=== PATIENT | female | born 1960 | race Caucasian/White ===

== ENCOUNTER 2019-05-22 22:11 | Inpatient (IN) | payer MEDICAID ==
[~2019-05-22] VITALS: Ht 162.6 cm; Wt 73.9 kg
[~2019-05-22 22:11] MED LIST: ABILIFY15 MG ORAL; ABILIFY2 MG ORAL; ALBUTEROL SULF8.5 GM INH; AMLODIPINE BESYL5 MG ORAL; ATIVAN2 MG ORAL; ATROVENT HFA12.9 GM IH; AUGMENTIN 875-1 EAC1 ORAL; BACLOFEN10 MG ORAL; BACTRIM DS TAB1 EAC1 ORAL; CIPROFLOXACIN500 M2 ORAL; CYCLOBENZAPRINE10 MG ORAL; DICLOFENAC SODI75 MG PO; FLOVENT2 PUFF1 INH; FLOVENT2 PUFF2 INH; GABAPENTIN300 MG ORAL; IBUPROFEN600 MG ORAL; IBUPROFEN800 MG ORAL; METRONIDAZOLE500 MG ORAL; PERCOCET 7.5-31 EACH ORAL; PHENERGAN/CODE120 ML ORAL; PREDNISONE20 MG ORAL; SOMA350 MG PO; VICODIN 5-5001 EACH PO
[2019-05-22] MEDS ORDERED: SERTRALINE HCL100 MG PO (22:14)
[2019-05-22 22:15] VITALS: BP 185/108
--- NOTE | 2019-05-22 22:20 | NUR ---
ED Nurse Note: Patient was BIBA fro home due to abdominal pain, and nausea. Stated that has alcohol addiction, took 2 drinks today, and used meth. AAO x4, VSS at this time, skin is warm to touch. Patient's comlain that she was not able to eat 3-4 days, and feel so weak.
[2019-05-22] MEDS ORDERED: Pantoprazole Inj IV ONE (22:30)
[2019-05-22] MEDS ORDERED: Morphine Sulfate 4mg/ml Inj (IV USE ONLY) IVP ONE (22:30)
--- NOTE | 2019-05-22 22:32 | Emergency Room Report ---
History of Present Illness General Chief Complaint: Abdominal Pain Source: Patient, EMS Present Illness HPI This is a 58-year-old female with a history of methamphetamine and alcohol abuse. She said that she has a history of cirrhosis. She presents with chief complete abdominal pain. Said that she is unable to keep anything down for the last 4 days. Been vomiting. Able to drink and smoke methamphetamine. Also complaining of rectal bleeding today. Being is bright red blood. Abdominal pain is diffuse. Pain is 9 out of 10. No fever chills but no chest pain. No cough or congestion. Was recently admitted to [facility] for pneumonia. Allergies: Coded Allergies: No Known Allergies (Unverified , 12/15/12) Patient History Past Medical History: see triage record, old chart reviewed Past Surgical History: none Pertinent Family History: none Social History: Denies: smoking Now: No Immunizations: other Reviewed Nursing Documentation: PMH: Agreed; PSxH: Agreed Nursing Documentation-PMH Hx Hypertension: Yes Hx Pacemaker: No Hx COPD: No - CIRRHOSIS, ETOH ABUSE Hx Diabetes: No Hx Cancer: No Hx Dialysis: No Hx Cerebrovascular Accident: No Hx Seizures: No Review of Systems Constitutional: Reports: weakness Eye: Denies: eye pain, blurred vision ENT: Denies: ear pain, nose congestion, throat swelling Respiratory: Denies: cough, shortness of breath Cardiovascular: Denies: chest pain, palpitations Gastrointestinal: Reports: abdominal pain, diarrhea, nausea, vomiting Musculoskeletal: Denies: back pain, joint pain Skin: Denies: rash Neurological: Denies: headache, numbness Endocrine: Denies: increased thirst, increased urine Hematologic/Lymphatic: Denies: easy bruising All Other Systems: negative except mentioned in HPI Physical Exam Vital Signs Date Time Temp Pulse Resp B/P (MAP) Pulse Ox O2 Delivery O2 Flow Rate FiO2 05/22/19 22:07 98.4 97 18 185/108 (133) 99 Room Air Vitals with high blood pressure Sp02 EP Interpretation: reviewed, normal General Appearance: well appearing, no apparent distress, obese, Chronically Ill Head: normocephalic, atraumatic Eyes: bilateral eye PERRL, bilateral eye EOMI ENT: hearing grossly normal, normal pharynx Neck: full range of motion, supple, no meningismus Respiratory: chest non-tender, lungs clear, normal breath sounds Cardiovascular #1: regular rate, rhythm, no murmur Gastrointestinal: normal bowel sounds, no mass, no organomegaly, no bruit, non- distended, tenderness - Diffuse Rectal: hemorrhoids, other - No blood. No stool. Musculoskeletal: back normal, gait/station normal, normal range of motion Psychiatric: mood/affect normal Medical Decision Making Diagnostic Impression: Primary Impression: Abdominal pain Qualified Codes: R10.84 - Generalized abdominal pain Additional Impressions: Methamphetamine abuse Alcohol abuse Alcoholic cirrhosis of liver without ascites ER Course This patient presents with abdominal pain. She has a history of cirrhosis secondary to alcohol abuse. Labs show elevated enzymes and bilirubin. No evidence of severe ascites. No evidence of acute abdomen or infection. Patient felt better now. More awake and alert. Said that she started vomiting when she stopped drinking. No evidence of acute abdomen, infection or obstruction. I was discussing discharge and patient, she says she does not feel well. She show evidence of some withdrawal symptoms was tremulous. Ativan given here. Because of her generalized weakness, decreased p.o. intake and alcohol withdrawal, will admit for IV fluids and further work-up. I discussed the case with Dr. Pablo for admission to Dr. Noriega. Lab Results Impression Labs with elevated liver enzymes Chest X-Ray Diagnostic Results Chest X-Ray Diagnostic Results : Chest X-Ray Ordered: Yes # of Views/Limited/Complete: 1 View Indication: Shortness of Breath EP Interpretation: Yes Interpretation: no consolidation, no effusion, no pneumothorax, no acute cardiopulmonary disease Impression: No acute disease Electronically Signed by: Juancarlos Ward MD CT/MRI/US Diagnostic Results CT/MRI/US Diagnostic Results : Imaging Test Ordered: CT abdomen and pelvis Impression Read by radiologist. No acute inflammatory obstructive process. Cirrhotic liver. Gallstone. Trace ascites. Last Vital Signs Date Time Temp Pulse Resp B/P (MAP) Pulse Ox O2 Delivery O2 Flow Rate FiO2 05/22/19 22:07 98.4 97 18 185/108 (133) 99 Room Air Status: improved Disposition: ADMITTED INPATIENT Condition: Serious Scripts Chlordiazepoxide (Chlordiazepoxide HCl) 25 Mg Capsule 25 MG ORAL THREE TIMES A DAY, #15 CAP 0 Refills Prov: Juancarlos Ward MD 05/23/19 Referrals: NOT CHOSEN IPA/,REFERRING (PCP) Additional Instructions: Follow up with your doctor in 3 to 5 days. Abstain from alcohol. Return if symptoms worsen. Go to rehab. Juancarlos Ward MD May 22, 2019 22:32
--- NOTE | 2019-05-22 23:00 | NUR ---
ED Nurse Note: Patient's O2 went down to 84, placed patient on 2L via NC.
[2019-05-22 23:04] LABS: HEMATOCRIT 43.9 % (37.0-47.0); HEMOGLOBIN 15.2 G/DL (12.0-16.0); MEAN CORPUSCULAR VOLUME 104 FL (80-99); PLATELET COUNT 86 K/UL (150-450); RED BLOOD COUNT 4.21 M/UL (4.20-5.40); RED CELL DISTRIBUTION WIDTH 13.6 % (11.6-14.8)
[2019-05-22 23:09] LABS: APPEARANCE,URINE CLEAR; BILIRUBIN, URINE NEGATIVE (NEGATIVE); GLUCOSE, URINE (UA) NEGATIVE (NEGATIVE); KETONES,URINE NEGATIVE (NEGATIVE); LEUKOCYTE ESTERASE ,URINE NEGATIVE (NEGATIVE); NITRITE,URINE NEGATIVE (NEGATIVE); PH,URINE 8 (4.5-8.0); PROTEIN,URINE 1+ (NEGATIVE); UROBILINOGEN,URINE 4 MG/DL (0.0-1.0)
[2019-05-22 23:14] LABS: ANION GAP 10 mmol/L (5-15); BLOOD UREA NITROGEN 4 mg/dL (7-18); CALCIUM 8.4 MG/DL (8.5-10.1); CARBON DIOXIDE 25 MMOL/L (21-32); CHLORIDE 108 MMOL/L (98-107); CREATININE 0.6 MG/DL (0.55-1.30); POTASSIUM 2.9 MMOL/L (3.5-5.1); SODIUM 143 MMOL/L (136-145)
[2019-05-22 23:17] LABS: AMMONIA 44 umol/L (11-32)
[2019-05-22 23:18] LABS: INR 1.3 (0.9-1.1)
[2019-05-22 23:25] LABS: COLOR,URINE YELLOW
[2019-05-22 23:25] LABS: ALANINE AMINOTRANSFERASE 68 U/L (12-78); ALBUMIN 2.7 G/DL (3.4-5.0); ALBUMIN/GLOBULIN RATIO 0.5 (1.0-2.7); ALKALINE PHOSPHATASE 265 U/L (46-116); ASPARTATE AMINO TRANSFERASE 259 U/L (15-37); BILIRUBIN,TOTAL 1.1 MG/DL (0.2-1.0)
[2019-05-22 23:27] LABS: BILIRUBIN,DIRECT 0.7 MG/DL (0.0-0.3)
[2019-05-23 01:15] VITALS: BP 135/89
[2019-05-23] MEDS ORDERED: Morphine Sulfate 4mg/ml Inj (IV USE ONLY) IVP ONE (02:00)
--- NOTE | 2019-05-23 02:28 | Diagnostic Imaging Report ---
EXAM: CT Abdomen and Pelvis Without Intravenous Contrast CLINICAL HISTORY: Abdominal pain. TECHNIQUE: Axial computed tomography images of the abdomen and pelvis without intravenous contrast. CTDI is 31.9 mGy and DLP is 1955 mGy-cm. One or more of the following dose reduction techniques were used: automated exposure control, adjustment of the mA and or kV according to patient size, use of iterative reconstruction technique. COMPARISON: 04 11 14. FINDINGS: Lung bases: Unremarkable. No mass. No consolidation. ABDOMEN: Liver: The liver is moderately enlarged, measuring over 25 cm in diameter, with innumerable small rounded hypodense nodules and a nodular contour, most likely representing cirrhosis with regenerative nodules. Gallbladder and bile ducts: The gallbladder is moderately distended. Multiple small gallstones are seen within the gallbladder lumen. There is mild gallbladder wall calcification as well. No evidence of biliary obstruction. Pancreas: Unremarkable. No ductal dilation. Spleen: Unremarkable. No splenomegaly. Adrenals: Unremarkable. No mass. Kidneys and ureters: Unremarkable. No obstructing stones. No hydronephrosis. Stomach and bowel: No bowel obstruction. No definite small bowel wall thickening. There are scattered colonic diverticula without evidence of acute diverticulitis. PELVIS: Appendix: Surgically absent. Bladder: Unremarkable. No stones. Reproductive: Status post hysterectomy. ABDOMEN and PELVIS: Intraperitoneal space: No free intra-abdominal air. No loculated intra- abdominal fluid collection. Trace infiltrative changes within the paracolic gutters, likely representing trace ascites. Bones joints: No acute fracture. No dislocation. Soft tissues: Unremarkable. Vasculature: Unremarkable. No abdominal aortic aneurysm. Lymph nodes: Unremarkable. No enlarged lymph nodes. IMPRESSION: No definite acute inflammatory or obstructive process is identified within the abdomen or pelvis. Moderately enlarged, cirrhotic liver with innumerable hypodense nodules throughout the hepatic parenchyma likely representing regenerative nodules. Given patient risk factors, consider a nonemergent, dedicated liver MRI for better characterization and to exclude underlying lesion. Cholelithiasis. No evidence of biliary obstruction. Trace ascites.
[2019-05-23] MEDS ORDERED: LIBRIUM25 MG ORAL (02:53)
[2019-05-23] MEDS ORDERED: ZOFRAN4 MG ORAL (02:53)
[2019-05-23] MEDS ORDERED: LORazepam Inj 2mg/ml 1ml IV ONE (03:30)
--- NOTE | 2019-05-23 03:36 | Diagnostic Imaging Report ---
EXAM: XR Chest, 1 View CLINICAL HISTORY: SOB TECHNIQUE: Frontal view of the chest. COMPARISON: 05 06 13 FINDINGS: Lungs: No evidence of airspace consolidation. Mild interstitial edema may be present in both lower lobes. Pleural space: Unremarkable. No pneumothorax. Heart: Heart size top normal. Mediastinum: Unremarkable. No mediastinal widening or shift. Bones joints: Unremarkable. No acute osseous abnormality. IMPRESSION: Mild interstitial edema. Please correlate symptoms of hypervolemia or congestive heart failure. No airspace consolidation. No pneumothorax.
--- NOTE | 2019-05-23 03:37 | NUR ---
ED Nurse Note: PT WAS PROVIDED W/ EXTRA WARM BLANKET FOR COMFORT, PT SINUS TACH ON HIM TECH, WILL CONT MONITOR.
--- NOTE | 2019-05-23 05:37 | NUR ---
NURSE NOTES: Received report from LY Lozano (ER).
--- NOTE | 2019-05-23 05:40 | NUR ---
ED Nurse Note: Patient was admited t [facility] due to generalized weakness, alcohol abuse. Patient was transfered to the unit via gurney, with all belongings. AAO x4. VSS at this time, skin is warm to touch
[2019-05-23] MEDS ORDERED: Albuterol/Ipratropium 3ml neb HHN PRN (05:45)
--- NOTE | 2019-05-23 05:50 | NUR ---
NURSE NOTES: Pt arrived on floor, alert, fatigued, able to make needs known, ambulated to bed, Vitals 149,74 99.1 96% 20rr, 117HR, no c/o pain or signs of distress, belongings list signed, pt wearing jewelry, will get admitting orders.
[2019-05-23 06:52] VITALS: BP 143/78
--- NOTE | 2019-05-23 07:40 | NUR ---
NURSE NOTES: Received patient in bed, stated feeling weak, verbally responsive. was eating breakfast however fatigue. Patient is on O2 2L via NC. IV heplock patent and intact. V/S taken 98.1, 113, 21, 156/72, 96% on O2 2L via NC, 8/10 pain. No acte resp distress noted. siderails are up x3. instructed to call for assistance to ambulate. bed alarm is activated and locked. call light is within reach. will cont to monitor.
--- NOTE | 2019-05-23 07:41 | NUR ---
HAND-OFF: Report given to LY Mayfield.
[2019-05-23 08:00] VITALS: BP 133/71
[2019-05-23] MEDS: Docusate 100mg cap ORAL SCH ×2 (08:08→20:41)
[2019-05-23] MEDS: Sertraline 100mg tab ORAL SCH (08:08)
[2019-05-23] MEDS ORDERED: chlordiazePOXIDE 25mg Cap ORAL SCH (09:00)
[2019-05-23] MEDS: ARIPiprazole 2mg tab ORAL SCH (09:18)
[2019-05-23 10:29] LABS: ANION GAP 9 mmol/L (5-15); BLOOD UREA NITROGEN 4 mg/dL (7-18); CALCIUM 7.5 MG/DL (8.5-10.1); CARBON DIOXIDE 24 MMOL/L (21-32); CHLORIDE 108 MMOL/L (98-107); CREATININE 0.6 MG/DL (0.55-1.30); POTASSIUM 3.6 MMOL/L (3.5-5.1); SODIUM 141 MMOL/L (136-145)
--- NOTE | 2019-05-23 11:35 | NUR ---
NURSE NOTES: left voicemessage to Dr Noriega. re: patient appeared anxious. awaits for a call back. will cont the plan of care. Addendum: 05/23/19 at 1148 by SERENA CHAVES LVN NURSE NOTES: Dr Garcia called back and will place order. made aware of the labs result today. will cont to monitor.
[2019-05-23 11:40] VITALS: BP 154/90
[2019-05-23] MEDS: LORazepam Inj 2mg/ml 1ml IV PRN ×3 (12:17→20:49)
[2019-05-23] MEDS: chlordiazePOXIDE 25mg Cap ORAL SCH ×2 (12:18→17:24)
[2019-05-23] MEDS ORDERED: Gadavist 7.5mMol/7.5ml vial IV PRN (15:00)
--- NOTE | 2019-05-23 15:08 | History and Physical ---
History of Present Illness General Date patient seen: May 23, 2019 Reason for Hospitalization: Abdominal Pain Present Illness HPI Kandy Negrete is a 58 yo woman with PMH of alcoholic cirrhosis, polysubstance abuse (marijuana, methamphetamine, EtOH), COPD, and HTN who presented with several days of nausea, vomiting, poor PO intake, and abdominal pain. Patient states she recently "got over the flu" about a week ago and has not felt right since. Has had decreased PO intake and only been able to tolerate fluids, not much food. States has been having on/off nausea and occasional vomiting as well. Does admit to continued alcohol use despite knowing having liver disease. States her last drink was around 1PM yesterday with vodka. Denies any history of seizures but does admit that usually gets tremulous if she does not have a drink daily. States she is interested in detox and has considered quitting but it has been difficult as she lives with 2 other roommates who both drink and use other drugs. States she is "in a toxic environment." States she has not had a good bowel movement in a week, last bowel movement was yesterday but only a smear; states is passing gas. Denies any fever, chills, chest pain, SOB, visual/auditory/or sensory hallucinations. This morning, states abd pain has resolved and no further vomiting since admission to hospital. Per RN, noted with tremors, PRN ativan given. Allergies: Coded Allergies: No Known Allergies (Unverified , 12/15/12) Medication History Scheduled Amlodipine Besylate* (Amlodipine Besylate*), 5 MG ORAL DAILY, (Reported) Aripiprazole* (Abilify*), 2 MG ORAL DAILY, (Reported) Chlordiazepoxide (Chlordiazepoxide HCl), 25 MG ORAL THREE TIMES A DAY Sertraline Hcl* (Zoloft*), 100 MG PO DAILY, (Reported) Discontinued Medications Albuterol Sulfate* (Albuterol Sulfate Mdi*), 2 PUFF INH Q3H, (Reported) Discontinued Reason: Therapy completed Carisoprodol* (Soma*), Unknown Dose PO, (Reported) Discontinued Reason: Therapy completed Cyclobenzaprine Hcl* (Flexeril*), 10 MG ORAL BID, (Reported) Discontinued Reason: Therapy completed Diclofenac Sod* (Voltaren*), 75 MG PO BID, (Reported) Discontinued Reason: Therapy completed Fluticasone Propionate (Flovent Hfa), 2 PUFFS INH BID, (Reported) Discontinued Reason: Therapy completed Gabapentin* (Gabapentin*), 300 MG ORAL BID, (Reported) Discontinued Reason: Therapy completed Ibuprofen* (Motrin*), 600 MG ORAL Q8H PRN for For Pain Discontinued Reason: Therapy completed Lorazepam* (Ativan*), 2 MG ORAL BID, (Reported) Discontinued Reason: Therapy completed Ondansetron (Zofran), 4 MG ORAL Q6H PRN for Nausea & Vomiting Discontinued Reason: Therapy completed Oxycodone Hcl/Acetaminophen 7.5-325 Mg (Percocet 7.5-325 Mg Tablet), 1 TAB ORAL FOUR TIMES A DAY Discontinued Reason: Therapy completed Trimethoprim/Sulfamethoxazole 160/800* (Bactrim Ds Tablet*), 1 TAB ORAL Q12H Discontinued Reason: Therapy completed Patient History History Provided By: Patient, Medical Record Healthcare decision maker Resuscitation status Full Code Advanced Directive on File Family History Family History: Patient reports no known family medical history. Social History Social History: (1) Alcohol use (2) Smoker (3) Substance abuse Review of Systems Constitutional: Reports: weakness Eye: Reports: no symptoms ENT: Reports: no symptoms Respiratory: Reports: no symptoms Cardiovascular: Reports: no symptoms Gastrointestinal: Reports: abdominal pain, nausea, vomiting Genitourinary: Reports: no symptoms Musculoskeletal: Reports: no symptoms Skin: Reports: no symptoms Psychiatric: Reports: other - tremors, polysubstance abuse, anxiety Neurological: Reports: tremors - EtOH withdraw Endocrine: Reports: no symptoms Hematologic/Lymphatic: Reports: no symptoms Physical Exam General Appearance: no apparent distress, alert, lethargic Lines, tubes and drains: peripheral HEENT: normocephalic, atraumatic, anicteric Neck: non-tender, supple Respiratory/Chest: lungs clear, normal breath sounds, no respiratory distress Cardiovascular/Chest: normal peripheral pulses, normal rate, regular rhythm Abdomen: normal bowel sounds, non tender, soft, distended Extremities: non-tender, trace edema Neurologic: alert - AAOx2 to name and place but not date or year Last 24 Hour Vital Signs Date Time Temp Pulse Resp B/P (MAP) Pulse Ox O2 Delivery O2 Flow Rate FiO2 05/23/19 11:40 98.7 116 20 154/90 (111) 93 05/23/19 08:17 Nasal Cannula 2.0 05/23/19 08:09 113 156/72 05/23/19 08:00 98.5 113 20 133/71 (91) 93 05/23/19 07:29 95 Nasal Cannula 2.0 05/23/19 07:29 113 20 95 Nasal Cannula 2.0 05/23/19 06:52 98.4 82 18 143/78 97 Nasal Cannula 2.0 05/23/19 06:52 98.4 82 18 143/78 97 Nasal Cannula 2.0 05/23/19 06:04 Nasal Cannula 2.0 05/23/19 02:32 98.4 05/23/19 01:30 183/93 05/23/19 01:15 98.4 82 18 135/89 97 Nasal Cannula 2.0 05/22/19 23:31 98.4 05/22/19 22:15 98.4 18 185/108 99 Room Air 05/22/19 22:15 97 18 Room Air 05/22/19 22:07 98.4 97 18 185/108 (133) 99 Room Air Laboratory Tests Test 05/22/19 22:15 05/22/19 22:59 05/23/19 09:45 White Blood Count 7.0 K/UL (4.8-10.8) Red Blood Count 4.21 M/UL (4.20-5.40) Hemoglobin 15.2 G/DL (12.0-16.0) Hematocrit 43.9 % (37.0-47.0) Mean Corpuscular Volume 104 FL (80-99) H Mean Corpuscular Hemoglobin 36.0 PG (27.0-31.0) H Mean Corpuscular Hemoglobin Concent 34.5 G/DL (32.0-36.0) Red Cell Distribution Width 13.6 % (11.6-14.8) Platelet Count 86 K/UL (150-450) L Mean Platelet Volume 9.2 FL (6.5-10.1) Neutrophils (%) (Auto) % (45.0-75.0) Lymphocytes (%) (Auto) % (20.0-45.0) Monocytes (%) (Auto) % (1.0-10.0) Eosinophils (%) (Auto) % (0.0-3.0) Basophils (%) (Auto) % (0.0-2.0) Differential Total Cells Counted 100 Neutrophils % (Manual) 71 % (45-75) Lymphocytes % (Manual) 18 % (20-45) L Monocytes % (Manual) 8 % (1-10) Eosinophils % (Manual) 1 % (0-3) Basophils % (Manual) 2 % (0-2) Band Neutrophils 0 % (0-8) Platelet Estimate Decreased L Platelet Morphology Normal Prothrombin Time 13.3 SEC (9.30-11.50) H Prothromb Time International Ratio 1.3 (0.9-1.1) H Activated Partial Thromboplast Time 29 SEC (23-33) Sodium Level 143 MMOL/L (136-145) 141 MMOL/L (136-145) Potassium Level 2.9 MMOL/L (3.5-5.1) L 3.6 MMOL/L (3.5-5.1) Chloride Level 108 MMOL/L (98-107) H 108 MMOL/L (98-107) H Carbon Dioxide Level 25 MMOL/L (21-32) 24 MMOL/L (21-32) Anion Gap 10 mmol/L (5-15) 9 mmol/L (5-15) Blood Urea Nitrogen 4 mg/dL (7-18) L 4 mg/dL (7-18) L Creatinine 0.6 MG/DL (0.55-1.30) 0.6 MG/DL (0.55-1.30) Estimat Glomerular Filtration Rate > 60 mL/min (>60) > 60 mL/min (>60) Glucose Level 107 MG/DL (74-106) H 102 MG/DL (74-106) Calcium Level 8.4 MG/DL (8.5-10.1) L 7.5 MG/DL (8.5-10.1) L Total Bilirubin 1.1 MG/DL (0.2-1.0) H Direct Bilirubin 0.7 MG/DL (0.0-0.3) H Aspartate Amino Transf (AST/SGOT) 259 U/L (15-37) H Alanine Aminotransferase (ALT/SGPT) 68 U/L (12-78) Alkaline Phosphatase 265 U/L (46-116) H Ammonia 44 umol/L (11-32) H Total Protein 8.5 G/DL (6.4-8.2) H Albumin 2.7 G/DL (3.4-5.0) L Globulin 5.8 g/dL Albumin/Globulin Ratio 0.5 (1.0-2.7) L Lipase 326 U/L (73-393) Urine Color Yellow Urine Appearance Clear Urine pH 8 (4.5-8.0) Urine Specific [place] 1.010 (1.005-1.035) Urine Protein 1+ (NEGATIVE) H Urine Glucose (UA) Negative (NEGATIVE) Urine Ketones Negative (NEGATIVE) Urine Blood 1+ (NEGATIVE) H Urine Nitrite Negative (NEGATIVE) Urine Bilirubin Negative (NEGATIVE) Urine Urobilinogen 4 MG/DL (0.0-1.0) H Urine Leukocyte Esterase Negative (NEGATIVE) Urine RBC 2-4 /HPF (0 - 2) H Urine WBC 0 /HPF (0 - 2) Urine Squamous Epithelial Cells None /LPF (NONE/OCC) Urine Bacteria None /HPF (NONE) Height (Feet): 5 Height (Inches): 4.00 Weight (Pounds): 165 Medications Current Medications Medications (Trade) Dose Ordered Sig/Sarthak Route PRN Reason Start Time Stop Time Status Last Admin Dose Admin Albuterol/ Ipratropium (Albuterol/ Ipratropium) 3 ml Q4H PRN HHN Shortness of Breath 05/23/19 05:45 05/28/19 05:44 Amlodipine Besylate (Norvasc) 5 mg DAILY ORAL 05/23/19 09:00 06/22/19 08:59 05/23/19 08:09 Aripiprazole (Abilify) 2 mg DAILY ORAL 05/23/19 09:00 06/22/19 08:59 05/23/19 09:18 Chlordiazepoxide (Librium) 25 mg Q6H ORAL 05/25/19 12:00 05/27/19 12:00 Chlordiazepoxide (Librium) 50 mg EVERY 6 HOURS ORAL 05/23/19 12:00 05/25/19 12:00 05/23/19 12:18 Dextrose (Dextrose 50%) 25 ml Q30M PRN IV Hypoglycemia 05/23/19 05:45 06/22/19 05:44 Dextrose (Dextrose 50%) 50 ml Q30M PRN IV Hypoglycemia 05/23/19 05:45 06/22/19 05:44 Diphenhydramine HCl (Benadryl) 25 mg Q6H PRN ORAL Itching/Pruritis 05/23/19 05:45 06/22/19 05:44 Docusate Sodium (Colace) 100 mg EVERY 12 HOURS ORAL 05/23/19 09:00 06/22/19 08:59 05/23/19 08:08 Lorazepam (Ativan 2mg/ml 1ml) 1 mg Q2H PRN IV withdraw 05/23/19 12:00 05/30/19 11:59 05/23/19 12:17 Ondansetron HCl (Zofran) 4 mg Q6H PRN IVP Nausea & Vomiting 05/23/19 05:45 06/22/19 05:44 Sertraline HCl (Zoloft) 100 mg DAILY ORAL 05/23/19 09:00 06/22/19 08:59 05/23/19 08:08 Assessment/Plan Status: unchanged Assessment/Plan: Kandy Negrete is a 58 yo woman with PMH of alcoholic cirrhosis, polysubstance abuse (EtOH, methamphetamine, marijuana), COPD, and HTN who presented with several days of poor PO intake, N/V, abdominal discomfort and generalized weakness, found with labs notable for platelet 86, no leukocytosis, hypokalemia 2.9, tranaminitis with AST>ALT, and overall unremarkable CT A/P for acute process. Patient also noted with tachycardia, borderline hypertension, and tremors today concerning for alcohol withdraw. GI: N/V - resolved, abd pain - resolved, alcoholic cirrhosis, constipation - Symptoms may be 2/2 continued EtOH use, now resolved after abstinence for one day +/- mild viral gastroenteritis - CT A/P without acute inflammatory or obstructive process, trace ascites, moderately enlarged cirrhotic liver with immunerable hypodense nodules throughout likely regenerative nodules, cholelithiasis without obstruction. Consider MRI liver for better characterization. - Patient states does not have a GI doctor outpatient. Given likely to be lost to follow up with hx of poor follow ups and polysubstance abuse, will order MRI abdomen here to further characterize CT findings to rule out malignancy - AST 259 ALT 68 on admission, consistent with EtOH abuse - MELD Na 10, <2% estimated 90 day mortality - Ammonia 44 - Start lactulose 20mg PO TID for constipation and mild hyperammonemia - Zofran 4mg q6hrs PRN nausea/vomiting Psych: Polysubstance abuse, acute EtOH withdraw, mood disorder - Alcohol withdraw protocol - Banana bag x1, thiamine PO daily, folate PO daily, multivitamin PO daily - Start librium taper, 50mg PO q6hr x24hrs then 25mg PO q6hrs - Ativan 1gm IV q2hrs PRN withdraw symptoms - Monitor for worsening signs/symptoms of withdraw - Social work consult, patient interested in detox programs - Continue home abilify and zoloft Neurology: Metabolic encephalopathy - In setting of acute EtOH withdraw and cirrhosis - Treatment as per above CVS: Sinus tachycardia, hx HTN - tachycardia 2/2 EtOH withdraw - Continue home amlodipine 5mg PO daily Heme: Thrombocytopenia - Platelet 86 on admission, likely 2/2 chronic EtOH use/cirrhosis - Continue to monitor - SCDs for DVT ppx FEN Low sodium diet Full Code I spent 70 minutes on this encounter, with >50% dedicated to counseling and/or coordination of care. Kelly Garcia M.D. May 23, 2019 15:08
[2019-05-23 16:00] VITALS: BP 153/92
[2019-05-23] MEDS ORDERED: Magnesium Sulfate 2,000 MG, Folic Acid 1 MG, Multivitamin - 12 Injection 10 ML in Sodiu... IV ONE (16:30)
[2019-05-23] MEDS ORDERED: Thiamine 100mg in D5W 55ml IVPB ONE (16:30)
[2019-05-23] MEDS: Lactulose 20gm/30ml UDC ORAL SCH (17:24)
--- NOTE | 2019-05-23 19:01 | NUR ---
HAND-OFF: Report given to BEAR.
--- NOTE | 2019-05-23 19:22 | NUR ---
NURSE NOTES: Pt received in bed, alert and oriented, talking and answering questions, able to make needs known, call light within reach, no c/o pain or signs of distress at the moment, banana bag running, IV intact and patent, head of bed elevated, will continue to monitor.
[2019-05-23 20:00] VITALS: BP 153/74
[2019-05-24] VITALS: BP 148/79
[2019-05-24] MEDS: chlordiazePOXIDE 25mg Cap ORAL SCH ×4 (00:24→17:22)
[2019-05-24] MEDS: LORazepam Inj 2mg/ml 1ml IV PRN ×5 (01:39→22:02)
[2019-05-24 04:00] VITALS: BP 156/91
--- NOTE | 2019-05-24 07:05 | NUR ---
HAND-OFF: Report given to LY Tafoya.
[2019-05-24 07:06] LABS: HEMATOCRIT 38.8 % (37.0-47.0); HEMOGLOBIN 12.9 G/DL (12.0-16.0); MEAN CORPUSCULAR VOLUME 107 FL (80-99); PLATELET COUNT 53 K/UL (150-450); RED BLOOD COUNT 3.61 M/UL (4.20-5.40); RED CELL DISTRIBUTION WIDTH 13.9 % (11.6-14.8); WHITE BLOOD COUNT 5.2 K/UL (4.8-10.8)
[2019-05-24 07:16] LABS: ANION GAP 7 mmol/L (5-15); BLOOD UREA NITROGEN 5 mg/dL (7-18); CALCIUM 7.2 MG/DL (8.5-10.1); CARBON DIOXIDE 25 MMOL/L (21-32); CHLORIDE 105 MMOL/L (98-107); CREATININE 0.5 MG/DL (0.55-1.30); POTASSIUM 3.2 MMOL/L (3.5-5.1); SODIUM 137 MMOL/L (136-145)
[2019-05-24 07:40] LABS: ALANINE AMINOTRANSFERASE 64 U/L (12-78); ALBUMIN 2.3 G/DL (3.4-5.0); ALKALINE PHOSPHATASE 224 U/L (46-116); ASPARTATE AMINO TRANSFERASE 229 U/L (15-37); BILIRUBIN,TOTAL 1.9 MG/DL (0.2-1.0)
[2019-05-24 08:00] VITALS: BP 158/81
--- NOTE | 2019-05-24 08:01 | NUR ---
NURSE NOTES: Received report from LY De Leon. Pt in bed, fatigued, seizure pads applied to side rails, pt is calm, no apparent distress noted, bed in lowest position, call light within reach.
[2019-05-24] MEDS: Docusate 100mg cap ORAL SCH ×2 (08:36→21:00)
[2019-05-24] MEDS: Lactulose 20gm/30ml UDC ORAL SCH ×3 (08:36→17:22)
[2019-05-24] MEDS: Thiamine 100mg tab ORAL SCH (08:36)
[2019-05-24] MEDS: ARIPiprazole 2mg tab ORAL SCH (08:37)
[2019-05-24] MEDS: Sertraline 100mg tab ORAL SCH (08:37)
--- NOTE | 2019-05-24 09:51 | General Progress Note ---
Assessment/Plan Status: stable, unchanged Assessment/Plan: Kandy Negrete is a 58 yo woman with PMH of alcoholic cirrhosis, polysubstance abuse (EtOH, methamphetamine, marijuana), COPD, and HTN who presented with several days of poor PO intake, N/V, abdominal discomfort and generalized weakness, found with labs notable for platelet 86, no leukocytosis, hypokalemia 2.9, tranaminitis with AST>ALT, and overall unremarkable CT A/P for acute process. Patient also noted with tachycardia, borderline hypertension, and tremors today concerning for alcohol withdraw. GI: N/V - resolved, abd pain - resolved, alcoholic cirrhosis, constipation - Symptoms may be 2/2 continued EtOH use, now resolved after abstinence for one day +/- mild viral gastroenteritis - CT A/P without acute inflammatory or obstructive process, trace ascites, moderately enlarged cirrhotic liver with hypodense nodules throughout likely regenerative nodules, cholelithiasis without obstruction. Consider MRI liver for better characterization. MRI attepmted, patient could not tolerate due to claustrophobia and refusal of IC contrast. - Patient states does not have a GI doctor outpatient. Obtain GI consult today. - AST 259 ALT 68 on admission, consistent with EtOH abuse - MELD Na 10, <2% estimated 90 day mortality - Ammonia 44 - lactulose 20mg PO TID for constipation and mild hyperammonemia, too many bowel movement. Decrease to 10mg TID - Zofran 4mg q6hrs PRN nausea/vomiting -Tylenol for pain control Psych: Polysubstance abuse, acute EtOH withdraw, mood disorder - Alcohol withdraw protocol - Banana bag x1, thiamine PO daily, folate PO daily, multivitamin PO daily - Start librium taper, 50mg PO q6hr x24hrs then 25mg PO q6hrs - Ativan 1gm IV q2hrs PRN withdraw symptoms - Monitor for worsening signs/symptoms of withdraw - Social work consult, patient interested in detox programs - Continue home Bhumilialvaro and Guillerminat Neurology: Metabolic encephalopathy - In setting of acute EtOH withdraw and cirrhosis - Treatment as per above CVS: Sinus tachycardia, hx HTN - tachycardia 2/2 EtOH withdraw - Continue home amlodipine 5mg PO daily Heme: Thrombocytopenia - Platelet 86 on admission, likely 2/2 chronic EtOH use/cirrhosis - Continue to monitor - SCDs for DVT ppx FEN Low sodium diet Full Code I spent 40 minutes on this encounter, with >50% dedicated to counseling and/or coordination of care. case d/w GI MANDREL MAKER Jose and rn Subjective Date patient seen: May 24, 2019 ROS Limited/Unobtainable: No Constitutional: Denies: no symptoms, chills, diaphoresis, fever, malaise, weakness, other HEENT: Denies: no symptoms, eye pain, blurred vision, tearing, double vision, ear pain, ear discharge, nose pain, nose congestion, throat pain, throat swelling, mouth pain, mouth swelling, other Cardiovascular: Denies: no symptoms, chest pain, edema, irregular heart rate, lightheadedness, palpitations, syncope, other Respiratory: Denies: no symptoms, cough, orthopnea, shortness of breath, SOB with excertion, SOB at rest, sputum, stridor, wheezing, other Gastrointestinal/Abdominal: Reports: abdominal pain, diarrhea; Denies: no symptoms, abdomen distended, black stools, tarry stools, blood in stool, constipated, difficulty swallowing, nausea, poor appetite, poor fluid intake, rectal bleeding, vomiting, other Genitourinary: Denies: no symptoms, burning, discharge, frequency, flank pain, hematuria, incontinence, pain, urgency, other Neurologic/Psychiatric: Denies: no symptoms, anxiety, depressed, emotional problems, headache, numbness, paresthesia, pre-existing deficit, seizure, tingling, tremors, weakness, other Endocrine: Denies: no symptoms, excessive sweating, flushing, intolerance to cold, intolerance to heat, increased hunger, increased thirst, increased urine, unexplained weight gain, unexplained weight loss, other Allergies: Coded Allergies: No Known Allergies (Unverified , 12/15/12) Subjective has too many bowel movements. mild abdominal pain Objective Last 24 Hour Vital Signs Date Time Temp Pulse Resp B/P (MAP) Pulse Ox O2 Delivery O2 Flow Rate FiO2 05/24/19 09:00 Nasal Cannula 2.0 05/24/19 08:39 113 156/91 05/24/19 08:00 98.5 109 24 158/81 (106) 95 05/24/19 04:00 98.6 113 20 156/91 (112) 95 05/24/19 00:00 99.0 111 19 148/79 (102) 96 05/23/19 21:03 96 Nasal Cannula 2.0 28 05/23/19 21:00 Nasal Cannula 2.0 05/23/19 20:00 99.3 108 19 153/74 (100) 96 05/23/19 16:00 99.2 125 20 153/92 (112) 94 05/23/19 16:00 112 05/23/19 11:40 98.7 116 20 154/90 (111) 93 Intake and Output 05/23/19 05/24/19 19:00 07:00 Intake Total 1112 ml 1000 ml Balance 1112 ml 1000 ml Intake Oral 500 ml IV Total 1112 ml 500 ml # Voids 2 # Bowel Movements 1 Laboratory Tests 05/24/19 06:00: White Blood Count 5.2, Red Blood Count 3.61L, Hemoglobin 12.9, Hematocrit 38.8, Mean Corpuscular Volume 107H, Mean Corpuscular Hemoglobin 35.7H, Mean Corpuscular Hemoglobin Concent 33.2, Red Cell Distribution Width 13.9, Platelet Count 53L, Mean Platelet Volume 9.2, Neutrophils (%) (Auto) , Lymphocytes (%) ( Auto) , Monocytes (%) (Auto) , Eosinophils (%) (Auto) , Basophils (%) (Auto) , Differential Total Cells Counted 100, Neutrophils % (Manual) 59, Lymphocytes % ( Manual) 29, Monocytes % (Manual) 12H, Eosinophils % (Manual) 0, Basophils % ( Manual) 0, Band Neutrophils 0, Platelet Estimate DecreasedL, Platelet Morphology Normal, Anisocytosis 1+, Sodium Level 137, Potassium Level 3.2L, Chloride Level 105, Carbon Dioxide Level 25, Anion Gap 7, Blood Urea Nitrogen 5L , Creatinine 0.5L, Estimat Glomerular Filtration Rate > 60, Glucose Level 84, Calcium Level 7.2L, Total Bilirubin 1.9H, Direct Bilirubin 1.0H, Aspartate Amino Transf (AST/SGOT) 229H, Alanine Aminotransferase (ALT/SGPT) 64, Alkaline Phosphatase 224H, Total Protein 7.5, Albumin 2.3L Height (Feet): 5 Height (Inches): 4.00 Weight (Pounds): 165 Objective General Appearance: no apparent distress, alert, lethargic Lines, tubes and drains: peripheral HEENT: normocephalic, atraumatic, anicteric Neck: non-tender, supple Respiratory/Chest: lungs clear, normal breath sounds, no respiratory distress Cardiovascular/Chest: normal peripheral pulses, normal rate, regular rhythm Abdomen: normal bowel sounds, non tender, soft, distended Extremities: non-tender, trace edema Neurologic: alert - AAOx2 to name and place but not date or year Alen Clark M.D. May 24, 2019 09:51
--- NOTE | 2019-05-24 11:22 | NUR ---
MRI ABDOMEN W/O COMPLETED. PT WAS SEDATED DUE TO ALCOHOL WITHDRAWAL. THE SEDATION ALSO HELPED THE PT EVEN ATTEMPT THE MRI BECAUSE SHE STATES SHE IS CLAUSTROPHOBIC. HOWEVER, SHE CAN NOT HOLD HER BREATH, WHICH AFFECTS THE QUALITY OF THE IMAGES BECAUSE OF TOO MUCH MOTION. ALSO, SHE STILL WAS TOO CLAUSTROPHOBIC TO CONTINUE ON AND REFUSED TO DO THE POST CONTRAST IMAGES. LY RAZO HAS BEEN INFORMED. TJGray 11:27
--- NOTE | 2019-05-24 11:39 | GI Initial Consult Note ---
History of Present Illness General Date patient seen: May 24, 2019 Time patient seen: 11:32 Reason for Hospitalization: Abdominal Pain Referring physician: NOMI MEDEL Reason for Consultation: CIRRHOSIS Present Illness HPI Kandy Negrete is a 58 yo woman with PMH of alcoholic cirrhosis, polysubstance abuse (marijuana, methamphetamine, EtOH), COPD, and HTN who presented with several days of nausea, vomiting, poor PO intake, and abdominal pain. Patient states she recently "got over the flu" about a week ago and has not felt right since. Has had decreased PO intake and only been able to tolerate fluids, not much food. States has been having on/off nausea and occasional vomiting as well. Does admit to continued alcohol use despite knowing having liver disease. States her last drink was around 1PM yesterday with vodka. Denies any history of seizures but does admit that usually gets tremulous if she does not have a drink daily. States she is interested in detox and has considered quitting but it has been difficult as she lives with 2 other roommates who both drink and use other drugs. States she is "in a toxic environment." States she has not had a good bowel movement in a week, last bowel movement was yesterday but only a smear; states is passing gas. Denies any fever, chills, chest pain, SOB, visual/auditory/or sensory hallucinations. This morning, states abd pain has resolved and no further vomiting since admission to hospital. Per RN, noted with tremors, PRN ativan given. GI consulted for reported cirrhosis. Patient seen, awake alert oriented x4. Initial HPI as noted above. Patient presents today with elevated AST to 229, ALT within normal limits, total bilirubin 1.9, alkaline phosphatase 224. Abdominal pelvis CT was taken and noted that there was no definite acute inflammatory obstructive process. Was noted that the patient had a cirrhotic liver with multiple hepatic parenchyma. Patient is currently pending an MRI. No history of endoscopic colonoscopy. Home Meds Active Scripts Chlordiazepoxide (Chlordiazepoxide HCl) 25 Mg Capsule, 25 MG ORAL THREE TIMES A DAY, #15 CAP 0 Refills Prov:Juancarlos Ward MD 05/23/19 Reported Medications Sertraline Hcl* (ZOLOFT*) 100 Mg Tablet, 100 MG PO DAILY, TAB 05/22/19 Aripiprazole* (ABILIFY*) 2 Mg Tablet, 2 MG ORAL DAILY, TAB 09/12/14 Amlodipine Besylate* (AMLODIPINE BESYLATE*) 5 Mg Tablet, 5 MG ORAL DAILY 12/15/12 Discontinued Reported Medications Carisoprodol* (SOMA*) 350 Mg Tablet, PO, TAB 04/30/14 Albuterol Sulfate* (ALBUTEROL SULFATE MDI*) 8.5 Gm Hfa.aer.ad, 2 PUFF INH Q3H, # 1 INH 02/04/13 Fluticasone Propionate (Flovent Hfa) 2 Puffs Aero, 2 PUFFS INH BID, #1 EA 02/04/13 Cyclobenzaprine Hcl* (FLEXERIL*) 10 Mg Tablet, 10 MG ORAL BID, TAB 02/04/13 Diclofenac Sod* (VOLTAREN*) 75 Mg Tablet.dr, 75 MG PO BID 02/04/13 Gabapentin* (GABAPENTIN*) 300 Mg Capsule, 300 MG ORAL BID, CAP 02/04/13 Lorazepam* (ATIVAN*) 2 Mg Tablet, 2 MG ORAL BID 12/15/12 Discontinued Scripts Ondansetron (Zofran) 4 Mg Tablet, 4 MG ORAL Q6H PRN for Nausea & Vomiting, #10 TAB 0 Refills Prov:Juancarlos Ward MD 05/23/19 Trimethoprim/Sulfamethoxazole 160/800* (BACTRIM DS TABLET*) 1 Each Tablet, 1 TAB ORAL Q12H, #14 TAB 0 Refills Prov:Lisa Pisano 04/05/15 Ibuprofen* (MOTRIN*) 600 Mg Tablet, 600 MG ORAL Q8H PRN for For Pain, #30 TAB Prov:Srirma Ferrera MD 09/12/14 Oxycodone Hcl/Acetaminophen 7.5-325 Mg (PERCOCET 7.5-325 MG TABLET) 1 Each Tablet, 1 TAB ORAL FOUR TIMES A DAY, #10 CAP Prov:MARTHA KU 11/10/13 Med list reviewed/reconciled: Yes Allergies: Coded Allergies: No Known Allergies (Unverified , 12/15/12) Patient History History Provided By: Patient, Medical Record [facility] Narrative History Provided By: Patient, Medical Record Healthcare decision maker Resuscitation status Full Code Advanced Directive on File Family History Family History: Patient reports no known family medical history. Social History Social History: (1) Alcohol use (2) Smoker (3) Substance abuse Review of Systems All Other Systems: negative except mentioned in HPI Physical Exam Vital Signs Date Time Temp Pulse Resp B/P (MAP) Pulse Ox O2 Delivery O2 Flow Rate FiO2 05/22/19 22:07 98.4 97 18 185/108 (133) 99 Room Air 05/23/19 01:15 2.0 05/23/19 07:29 28 Sp02 EP Interpretation: reviewed, normal Labs Laboratory Tests Test 05/24/19 06:00 White Blood Count 5.2 K/UL (4.8-10.8) Red Blood Count 3.61 M/UL (4.20-5.40) L Hemoglobin 12.9 G/DL (12.0-16.0) Hematocrit 38.8 % (37.0-47.0) Mean Corpuscular Volume 107 FL (80-99) H Mean Corpuscular Hemoglobin 35.7 PG (27.0-31.0) H Mean Corpuscular Hemoglobin Concent 33.2 G/DL (32.0-36.0) Red Cell Distribution Width 13.9 % (11.6-14.8) Platelet Count 53 K/UL (150-450) L Mean Platelet Volume 9.2 FL (6.5-10.1) Neutrophils (%) (Auto) % (45.0-75.0) Lymphocytes (%) (Auto) % (20.0-45.0) Monocytes (%) (Auto) % (1.0-10.0) Eosinophils (%) (Auto) % (0.0-3.0) Basophils (%) (Auto) % (0.0-2.0) Differential Total Cells Counted 100 Neutrophils % (Manual) 59 % (45-75) Lymphocytes % (Manual) 29 % (20-45) Monocytes % (Manual) 12 % (1-10) H Eosinophils % (Manual) 0 % (0-3) Basophils % (Manual) 0 % (0-2) Band Neutrophils 0 % (0-8) Platelet Estimate Decreased L Platelet Morphology Normal Anisocytosis 1+ Sodium Level 137 MMOL/L (136-145) Potassium Level 3.2 MMOL/L (3.5-5.1) L Chloride Level 105 MMOL/L (98-107) Carbon Dioxide Level 25 MMOL/L (21-32) Anion Gap 7 mmol/L (5-15) Blood Urea Nitrogen 5 mg/dL (7-18) L Creatinine 0.5 MG/DL (0.55-1.30) L Estimat Glomerular Filtration Rate > 60 mL/min (>60) Glucose Level 84 MG/DL (74-106) Calcium Level 7.2 MG/DL (8.5-10.1) L Total Bilirubin 1.9 MG/DL (0.2-1.0) H Direct Bilirubin 1.0 MG/DL (0.0-0.3) H Aspartate Amino Transf (AST/SGOT) 229 U/L (15-37) H Alanine Aminotransferase (ALT/SGPT) 64 U/L (12-78) Alkaline Phosphatase 224 U/L (46-116) H Total Protein 7.5 G/DL (6.4-8.2) Albumin 2.3 G/DL (3.4-5.0) L General Appearance: well appearing, no apparent distress, alert Head: normocephalic EENT: PERRL/EOMI, normal ENT inspection Neck: supple Respiratory: normal breath sounds, no respiratory distress Cardiovascular: normal rate Gastrointestinal: normal inspection, non tender, soft, normal bowel sounds, non -distended Rectal: deferred Genitourinary: no CVA tenderness Musculoskeletal: normal inspection, back normal Neurologic: normal inspection, alert, oriented x3, responsive Psychiatric: normal inspection, judgement/insight normal, memory normal Skin: normal inspection, normal color, no rash, warm/dry, palpation normal, well hydrated Lymphatic: normal inspection, no adenopathy Current Medications Current Medications Medications (Trade) Dose Ordered Sig/Sarthak Route PRN Reason Start Time Stop Time Status Last Admin Dose Admin Albuterol/ Ipratropium (Albuterol/ Ipratropium) 3 ml Q4H PRN HHN Shortness of Breath 05/23/19 05:45 05/28/19 05:44 Amlodipine Besylate (Norvasc) 5 mg DAILY ORAL 05/23/19 09:00 06/22/19 08:59 05/24/19 08:39 Aripiprazole (Abilify) 2 mg DAILY ORAL 05/23/19 09:00 06/22/19 08:59 05/24/19 08:37 Chlordiazepoxide (Librium) 25 mg Q6H ORAL 05/25/19 12:00 05/27/19 12:00 Chlordiazepoxide (Librium) 50 mg EVERY 6 HOURS ORAL 05/23/19 12:00 05/25/19 12:00 05/24/19 05:51 Dextrose (Dextrose 50%) 25 ml Q30M PRN IV Hypoglycemia 05/23/19 05:45 06/22/19 05:44 Dextrose (Dextrose 50%) 50 ml Q30M PRN IV Hypoglycemia 05/23/19 05:45 06/22/19 05:44 Diphenhydramine HCl (Benadryl) 25 mg Q6H PRN ORAL Itching/Pruritis 05/23/19 05:45 06/22/19 05:44 Docusate Sodium (Colace) 100 mg EVERY 12 HOURS ORAL 05/23/19 09:00 06/22/19 08:59 05/24/19 08:36 Folic Acid (Folate) 1 mg DAILY ORAL 05/24/19 09:00 06/23/19 08:59 05/24/19 08:37 Gadobutrol (Gadavist) 7.5 mmol ONCE PRN IV RADIOLOGY 05/23/19 15:00 05/25/19 14:59 Lactulose (Cephulac) 20 gm THREE TIMES A DAY ORAL 05/23/19 18:00 06/22/19 17:59 05/24/19 08:36 Lorazepam (Ativan 2mg/ml 1ml) 1 mg Q2H PRN IV withdraw 05/23/19 12:00 05/30/19 11:59 05/24/19 08:37 Multivitamins (Multivitamins) 1 tab DAILY ORAL 05/24/19 09:00 06/23/19 08:59 05/24/19 08:36 Ondansetron HCl (Zofran) 4 mg Q6H PRN IVP Nausea & Vomiting 05/23/19 05:45 06/22/19 05:44 Sertraline HCl (Zoloft) 100 mg DAILY ORAL 05/23/19 09:00 06/22/19 08:59 05/24/19 08:37 Thiamine HCl (Vitamin B1) 100 mg DAILY ORAL 05/24/19 09:00 06/23/19 08:59 05/24/19 08:36 GI: Plan Problems: (1) Substance abuse (2) Alcoholic cirrhosis of liver without ascites (3) Drug-seeking behavior (4) Abdominal pain (5) Alcohol use (6) Smoker (7) Alcohol abuse (8) Methamphetamine abuse (9) Thrombocytopenia Plan This is a 58-year-old female patient with history of polysubstance abuse, EtOH abuse, cirrhosis presents with abdominal pain. No plans for any GI procedures at this time Abdominal pelvis CT reviewed, follow-up with MRI results Obtain urine toxicity Advance diet as tolerated start low dose lactulose Obtain hepatitis panel PPI Zofran as needed will follow Discussed with Dr. Goldman. Thank you for this patient referral, we will follow. The patient was seen and examined at bedside and all new and available data was reviewed in the patients chart. I agree with the above findings, impression and plan. (Patient seen earlier today. Signature stamp does not reflect patient encounter time.). - MD Sylvia HyattAudrey-Jose RENA May 24, 2019 11:39
[2019-05-24 12:00] VITALS: BP 156/84
--- NOTE | 2019-05-24 12:02 | NUR ---
NURSE NOTES: Per sow farm technician, Ultrasound abdomen cannot be done today, RN notified RENA Garcia. Jose stated okay to feed pt and make NPO at midnight for US of abd tomorrow 05/25/19
--- NOTE | 2019-05-24 15:03 | NUR ---
Social Service Note SW met with patient to address substance abuse. Patient is alert, oriented and verbally responsive. Patient states she wasn't in the mood to discuss her substance abuse but stated that this was nothing new. Patient was not receptive to discuss community resources. Patient however was receptive for CHRISTIAN to set up a follow up appointment with her PCP at [facility]. SW contacted clinic [phone]. Clinic indicted patient has been a no show to two scheduled appointments. Patient's appointment scheduled for May 31 at 1pm, [address] [facility] [place]. CHRISTIAN will faxed clinic patient information upon discharge [phone]. Patient states she will return home upon discharge. Nursing to provide follow up appointment in discharge instructions. Will continue to monitor.
--- NOTE | 2019-05-24 15:17 | NUR ---
*-* INSURANCE*-* ALL AVAILABLE CLINICALS HAVE BEEN FAXED TO: IRAIS SEYMOUR: SANDEE #[phone] FAX#[phone] REVIEWS/CLINICALS Addendum: 05/26/19 at 1126 by EVIN MACHUCA [facility]#[id number] CM:Leni lugo#[phone] ext [phone] fax#[phone]
--- NOTE | 2019-05-24 15:35 | NUR ---
P.T NOTE: P.T EVALUATION COMPLETED. PATIENT IS ALERT, O X 4, PLEASANT AND COOPERATIVE. NO C/O PAIN DURING P.T EVALUATION. PATIENT DEMONSTRATED FULL INDEPENDENCE IN ALL AREAS OF ADL/FUNCTIONAL MOBILITIES AND GAIT/LOCOMOTION. CURRENT FUNCTIONAL STATUS DOES NOT WARRANT SKILLED P.T. SERVICES AT THIS TIME. ENCOURAGED PATIENT OOB ACTIVITIES VS BEDREST UNLESS OTHERWISE ORDERED BY . [facility]. THANK YOU FOR THIS REFERRAL.
[2019-05-24 16:00] VITALS: BP 154/90
--- NOTE | 2019-05-24 16:00 | NUR ---
CASE MANAGEMENT: INITIAL REVIEW 58 YO F EBER FROM HOME CC: ABD PAIN. BRIGHT RED RECTAL BLEED. PMHx: DRUG AND ALCOHOL ABUSE. CIRRHOSIS. HTN. SI:GEN WEAKNESS. CIRRHOSIS. T 98.4 HR 97 RR 18 B/P 185/108 SATS 99% ON RA K 2.9 CL 108 BUN 4 GLU 107 CA 8.4 TBILI 1.1 DBILI 0.7 AST 259 ALP 265 AMMONIA 44 IS: ZOFRAN IV X1 PROTONIX IV X1 MORPHINE IV X2 NS BOLUS X2 KCL PO X1 HYDRALAZINE IV X1 ATIVAN IV X1 PATIENT ADMITTED TO MED/SURG 05/23/2019 @ 0400 DCP: PATIENT TO BE DISCHARGED TO HOME ONCE MEDICALLY CLEARED. PLAN OF CARE: SSW CONSULT PT EVAL US ABD 05/24/2019 SI:GEN WEAKNESS. CIRRHOSIS. T 98.4 HR 109 RR 22 B/P 156/84 SATS 95% ON 2L/NC K 3.2 BUN 5 CR 0.5 CA 7.2 TBILI 1.9 DBILI 1 AST 229 ALP 224 IS: LIBRIUM PO Q6H NORVASC PO QD ABILIFY PO QD ZOLOFT PO QD LACTULOSE PO TID MED/SURG STATUS DCP: PATIENT TO BE DISCHARGED TO HOME ONCE MEDICALLY CLEARED. PLAN OF CARE: SSW CONSULT >>> Patient states she will return home upon discharge. HAS OUTPT PCP APPT PT EVAL US ABD >>> Cholelithiasis. No evidence of biliary obstruction. Trace ascites. No plans for any GI procedures at this time Addendum: 05/24/19 at 1812 by Rosi Blood CM INTERQUAL MET
--- NOTE | 2019-05-24 16:28 | Diagnostic Imaging Report ---
Indication: Abdominal pain Technique: Coronal and axial single shot fast spin-echo breath-hold, axial T2 FRFSE, 2-D thick slab MRCP, AXIAL 2-D FIESTA fat saturated, water weighted and fat-weighted axial LAVA FLEX, revealed 3-D MRCP images were obtained of the abdomen. MIP reconstructions were generated of the bile ducts. No postcontrast images obtained, per patient request Comparison: No comparison MRI images. Reference made to CT abdomen pelvis dated 05/14/2019 Findings: The exam is limited due to motion artifact and lack of IV contrast.. The gallbladder demonstrates mild wall edema but no definite filling defects to suggest calculi. No biliary ductal dilatation. No definite biliary ductal filling defects, although evaluation for such is limited. Diffuse low signal parenchymal micronodularity is seen throughout the liver on the axial 2-D fiesta images. This is also evident but somewhat less apparent on the axial T2 fat saturated images. This is not visible on the coronal and axial single shot fast spin-echo images or on the LAVA FLEX images. No large hepatic nodules are demonstrated. There is mild hepatic surface micronodularity. The pancreas, spleen, adrenals, kidneys are grossly unremarkable. Trace ascites fluid is seen over the dome of the liver Impression: Limited exam, as described Hepatic surface micronodularity, most likely secondary to cirrhosis, also previously reported Diffuse micronodules throughout the liver, seen only on a few sequences and not well characterized corresponding to the findings reported on recent CT scan. Given the limitations of the exam and absence of IV contrast, this remains a nonspecific finding. Most likely regenerative nodules in the setting of hepatic cirrhosis but other etiologies also possible. Trace ascites, also previously described Gallbladder wall edema. Probably secondary to the hemodynamic arrangements related to the hepatic disease. Possibility of acute cholecystitis should also be considered, and consideration for hepatobiliary nuclear scan if there is high clinical suspicion
--- NOTE | 2019-05-24 19:21 | NUR ---
HAND-OFF: Report given to LY Burgess.
[2019-05-24 20:11] VITALS: BP 150/82
[2019-05-24] MEDS ORDERED: HYDROcodone/Acetamin 5/325 tab ORAL PRN (21:00)
[2019-05-25] MEDS: chlordiazePOXIDE 25mg Cap ORAL SCH ×5 (00:06→18:34)
[2019-05-25 04:00] VITALS: BP 140/91
[2019-05-25 06:17] LABS: HEMATOCRIT 41.4 % (37.0-47.0); HEMOGLOBIN 13.8 G/DL (12.0-16.0); MEAN CORPUSCULAR VOLUME 107 FL (80-99); PLATELET COUNT 60 K/UL (150-450); RED BLOOD COUNT 3.87 M/UL (4.20-5.40); RED CELL DISTRIBUTION WIDTH 13.6 % (11.6-14.8); WHITE BLOOD COUNT 5.6 K/UL (4.8-10.8)
[2019-05-25 06:52] LABS: ALANINE AMINOTRANSFERASE 72 U/L (12-78); ALBUMIN 2.3 G/DL (3.4-5.0); ALBUMIN/GLOBULIN RATIO 0.4 (1.0-2.7); ALKALINE PHOSPHATASE 237 U/L (46-116); ANION GAP 8 mmol/L (5-15); ASPARTATE AMINO TRANSFERASE 219 U/L (15-37); BILIRUBIN,TOTAL 2.7 MG/DL (0.2-1.0); BLOOD UREA NITROGEN 6 mg/dL (7-18); CARBON DIOXIDE 24 MMOL/L (21-32); CHLORIDE 107 MMOL/L (98-107); CREATININE 0.6 MG/DL (0.55-1.30); PHOSPHORUS 1.9 MG/DL (2.5-4.9); POTASSIUM 3.8 MMOL/L (3.5-5.1); SODIUM 139 MMOL/L (136-145)
[2019-05-25 07:09] LABS: BILIRUBIN,DIRECT 1.5 MG/DL (0.0-0.3)
--- NOTE | 2019-05-25 07:21 | NUR ---
HAND-OFF: Report given to Hanh Carroll RN.
[2019-05-25 08:00] VITALS: BP 168/87
[2019-05-25 09:18] VITALS: BP 141/81
[2019-05-25] MEDS: ARIPiprazole 2mg tab ORAL SCH (09:25)
[2019-05-25] MEDS: Lactulose 20gm/30ml UDC ORAL SCH ×3 (09:25→18:00)
[2019-05-25] MEDS: Docusate 100mg cap ORAL SCH ×2 (09:25→21:00)
[2019-05-25] MEDS: Sertraline 100mg tab ORAL SCH (09:26)
[2019-05-25] MEDS: Thiamine 100mg tab ORAL SCH (09:26)
--- NOTE | 2019-05-25 09:48 | NUR ---
NURSE NOTES: Patient is alert and oriented ,respirations unlabored.Patient is NPO for schedule procedure abdominal Ultrasound today. bedalarm is on,call light within reach.
[2019-05-25] MEDS: LORazepam Inj 2mg/ml 1ml IV PRN ×3 (10:50→20:51)
[2019-05-25 12:00] VITALS: BP 146/83
--- NOTE | 2019-05-25 13:04 | Diagnostic Imaging Report ---
Indication: History of cirrhosis, abdominal pain, vomiting, normal liver function tests Technique: Ramey-scale and duplex images of the upper abdomen were obtained Comparison: No comparison sonograms. Reference made to prior abdomen MRI 05/24/2019, abdomen pelvis CT 05/22/2019 Findings: Gallbladder demonstrates no evidence of gallstones. The gallbladder wall is borderline thickened, measuring 3 mm thick. The gallbladder wall demonstrates calcifications. Sonographic Neal's sign is negative. Common bile duct measures 3 mm in diameter. No intrahepatic biliary ductal dilatation. Liver demonstrates increased and heterogeneous echogenicity. It demonstrates surface nodularity. It is enlarged. Parenchymal nodules demonstrated on recent CT and MRI are not evident Portal vein and hepatic veins are patent. Pancreas is unremarkable. Spleen is unremarkable. Left kidney measures 10.7 cm in length. Right kidney measures 10.3 cm length. Both kidneys demonstrate normal echogenicity. There is no hydronephrosis. No focal abnormality . Abdominal aorta is partially obscured by bowel gas, visualized portions are non-aneurysmal . Impression: Hepatic surface nodularity, consistent with cirrhosis Nodules described on recent CT and MRI are not sonographically evident Hepatomegaly Negative for gallstones. There is mild gallbladder wall thickening, probably related to hepatocellular disease. However, the possibly of acute acalculous cholecystitis should also be considered. Consider hepatobiliary nuclear scanning for better characterization if there is high clinical suspicion for such Gallbladder wall calcification, may reflect early porcelain gallbladder changes. This is also evident on recent CT scan Negative for dilated bile ducts Note inability visualized portions of the abdominal aorta
[2019-05-25] MEDS ORDERED: Sodium Phosphate 30 MM in NS 275 ML IVPB ONE (14:00)
--- NOTE | 2019-05-25 15:46 | NUR ---
TOOL ENGINE LATHE SET UP OPERATORTRAINING AND DEVELOPMENT DIRECTOR SI: CIRRHOSIS, GENERALIZED WEAKNESS T. 97.5 HR 97 RR 16 B/P 168/82 AST 237 IS: NAPHOS IV MG IV ABILIFY PO MED/SURG STATUS
[2019-05-25 16:00] VITALS: BP 130/80
--- NOTE | 2019-05-25 18:30 | NUR ---
NURSE NOTES: Patient resting at this time,call light within reach.
--- NOTE | 2019-05-25 19:47 | NUR ---
NURSE NOTES: Received patient comfortably sleeping without complaints.
--- NOTE | 2019-05-25 19:55 | GI Progress Note ---
Assessment/Plan Problems: (1) Alcohol use ICD Codes: Z72.89 - Other problems related to lifestyle SNOMED: 884995 (2) Thrombocytopenia ICD Codes: D69.6 - Thrombocytopenia, unspecified SNOMED: 712078037 (3) Alcoholic cirrhosis of liver without ascites ICD Codes: K70.30 - Alcoholic cirrhosis of liver without ascites SNOMED: 865937488 (4) Abdominal pain ICD Codes: R10.9 - Unspecified abdominal pain SNOMED: 40079607 Qualifiers: Qualified Codes: R10.84 - Generalized abdominal pain (5) Alcohol abuse ICD Codes: F10.10 - Alcohol abuse, uncomplicated SNOMED: 08995689 Status: stable Status Narrative Discussed with Dr. Goldman. Assessment/Plan This is a 58-year-old female patient with history of polysubstance abuse, EtOH abuse, cirrhosis presents with abdominal pain. abdominal US reviewed >> - Hepatic surface nodularity, consistent with cirrhosis - Nodules described on recent CT and MRI are not sonographically evident -Hepatomegaly - Negative for gallstones. There is mild gallbladder wall thickening, probably related to hepatocellular disease. However, the possibly of acute acalculous cholecystitis should also be considered. MRI reviewed >> limited exam, patient unable to tolerate. No plans for any GI procedures at this time Advance diet as tolerated cont low dose lactulose, no need for xifaxan follow up hepatitis panel electrolyte correction PPI Zofran as needed follow labs The patient was seen and examined at bedside and all new and available data was reviewed in the patients chart. I agree with the above findings, impression and plan. (Patient seen earlier today. Signature stamp does not reflect patient encounter time.). - Martinez Goldman MD Subjective Subjective abdominal pain improved Objective Last 24 Hour Vital Signs Date Time Temp Pulse Resp B/P (MAP) Pulse Ox O2 Delivery O2 Flow Rate FiO2 05/25/19 16:00 97.6 101 18 130/80 (97) 95 05/25/19 12:00 97.6 105 18 146/83 (104) 96 05/25/19 11:35 97 Room Air 21 05/25/19 09:54 Room Air 05/25/19 09:26 94 141/81 05/25/19 09:18 94 141/81 (101) 05/25/19 08:00 97.5 97 16 168/87 (114) 95 05/25/19 04:00 98.1 95 20 140/91 (107) 96 05/24/19 20:22 Room Air 05/24/19 20:11 98.7 101 20 150/82 (104) 99 05/24/19 20:07 99 Room Air 21 Intake and Output 05/24/19 05/25/19 19:00 07:00 Intake Total 600 ml Balance 600 ml Intake Oral 600 ml # Voids 3 4 # Bowel Movements 6 2 Laboratory Tests Test 05/25/19 05:32 05/25/19 06:00 White Blood Count 5.6 K/UL (4.8-10.8) Red Blood Count 3.87 M/UL (4.20-5.40) L Hemoglobin 13.8 G/DL (12.0-16.0) Hematocrit 41.4 % (37.0-47.0) Mean Corpuscular Volume 107 FL (80-99) H Mean Corpuscular Hemoglobin 35.5 PG (27.0-31.0) H Mean Corpuscular Hemoglobin Concent 33.3 G/DL (32.0-36.0) Red Cell Distribution Width 13.6 % (11.6-14.8) Platelet Count 60 K/UL (150-450) L Mean Platelet Volume 9.0 FL (6.5-10.1) Neutrophils (%) (Auto) % (45.0-75.0) Lymphocytes (%) (Auto) % (20.0-45.0) Monocytes (%) (Auto) % (1.0-10.0) Eosinophils (%) (Auto) % (0.0-3.0) Basophils (%) (Auto) % (0.0-2.0) Sodium Level 139 MMOL/L (136-145) Potassium Level 3.8 MMOL/L (3.5-5.1) Chloride Level 107 MMOL/L (98-107) Carbon Dioxide Level 24 MMOL/L (21-32) Anion Gap 8 mmol/L (5-15) Blood Urea Nitrogen 6 mg/dL (7-18) L Creatinine 0.6 MG/DL (0.55-1.30) Estimat Glomerular Filtration Rate > 60 mL/min (>60) Glucose Level 80 MG/DL (74-106) Calcium Level 8.0 MG/DL (8.5-10.1) L Phosphorus Level 1.9 MG/DL (2.5-4.9) L Magnesium Level 1.4 MG/DL (1.8-2.4) L Total Bilirubin 2.7 MG/DL (0.2-1.0) H Direct Bilirubin 1.5 MG/DL (0.0-0.3) H Aspartate Amino Transf (AST/SGOT) 219 U/L (15-37) H Alanine Aminotransferase (ALT/SGPT) 72 U/L (12-78) Alkaline Phosphatase 237 U/L (46-116) H Total Protein 8.0 G/DL (6.4-8.2) Albumin 2.3 G/DL (3.4-5.0) L Globulin 5.7 g/dL Albumin/Globulin Ratio 0.4 (1.0-2.7) L Alpha Fetoprotein Pending Hepatitis A IgM Antibody Pending Hepatitis B Surface Antigen Pending Hepatitis B Core IgM Antibody Pending Hepatitis C Antibody Pending Urine Opiates Screen Negative (NEGATIVE) Urine Barbiturates Screen Negative (NEGATIVE) Phencyclidine (PCP) Screen Negative (NEGATIVE) Urine Amphetamines Screen Negative (NEGATIVE) Urine Benzodiazepines Screen Positive (NEGATIVE) H Urine Cocaine Screen Negative (NEGATIVE) Urine Marijuana (THC) Screen Negative (NEGATIVE) Height (Feet): 5 Height (Inches): 4.00 Weight (Pounds): 165 General Appearance: WD/WN, no apparent distress, alert Cardiovascular: normal rate Respiratory/Chest: normal breath sounds, no respiratory distress Abdominal Exam: normal bowel sounds, non tender, soft Extremities: normal range of motion, non-tender Cheyenne Ward NP May 25, 2019 19:55
[2019-05-25 20:00] VITALS: BP 159/83
--- NOTE | 2019-05-25 22:18 | General Progress Note ---
Assessment/Plan Problem List: (1) Colitis ICD Codes: K52.9 - Noninfective gastroenteritis and colitis, unspecified SNOMED: 788674260 (2) Cholelithiasis ICD Codes: K80.20 - Calculus of gallbladder without cholecystitis without obstruction SNOMED: 774102187 (3) Marijuana abuse ICD Codes: F12.10 - Cannabis abuse, uncomplicated SNOMED: 32427618 (4) Marijuana abuse ICD Codes: F12.10 - Cannabis abuse, uncomplicated SNOMED: 90114598 (5) Knee pain, chronic ICD Codes: M25.569 - Pain in unspecified knee; G89.29 - Other chronic pain SNOMED: 32905491 (6) Knee pain, chronic ICD Codes: M25.569 - Pain in unspecified knee; G89.29 - Other chronic pain SNOMED: 66314645 (7) Strain of left hip ICD Codes: S76.012A - Strain of muscle, fascia and tendon of left hip, initial encounter SNOMED: 337829688 (8) Strain of left hip ICD Codes: S76.012A - Strain of muscle, fascia and tendon of left hip, initial encounter SNOMED: 850170413 (9) Nail brittleness ICD Codes: L60.3 - Nail dystrophy SNOMED: 33040124 (10) Skin lesion of hand ICD Codes: L98.9 - Disorder of the skin and subcutaneous tissue, unspecified SNOMED: 242879265 (11) Nail brittleness ICD Codes: L60.3 - Nail dystrophy SNOMED: 88397232 (12) Sciatica ICD Codes: M54.30 - Sciatica, unspecified side SNOMED: 84052785 (13) Sciatica ICD Codes: M54.30 - Sciatica, unspecified side SNOMED: 23349908 (14) Methamphetamine abuse ICD Codes: F15.10 - Otherstimulant abuse, uncomplicated SNOMED: 000190835 (15) Substance abuse ICD Codes: F19.10 - Other psychoactive substance abuse, uncomplicated SNOMED: 31466895 (16) Alcohol abuse ICD Codes: F10.10 - Alcohol abuse, uncomplicated SNOMED: 58839709 (17) Abdominal pain ICD Codes: R10.9 - Unspecified abdominal pain SNOMED: 09796606 Qualifiers: Qualified Codes: R10.84 - Generalized abdominal pain (18) Drug-seeking behavior ICD Codes: F19.10 - Other psychoactive substance abuse, uncomplicated SNOMED: 307677915 (19) Alcoholic cirrhosis of liver without ascites ICD Codes: K70.30 - Alcoholic cirrhosis of liver without ascites SNOMED: 289812983 (20) Thrombocytopenia ICD Codes: D69.6 - Thrombocytopenia, unspecified SNOMED: 876723883 Status: stable Assessment/Plan: Kandy Negrete is a 58 yo woman with PMH of alcoholic cirrhosis, polysubstance abuse (EtOH, methamphetamine, marijuana), COPD, and HTN who presented with several days of poor PO intake, N/V, abdominal discomfort and generalized weakness, found with labs notable for platelet 86, no leukocytosis, hypokalemia 2.9, tranaminitis with AST>ALT, and overall unremarkable CT A/P for acute process. Patient also noted with tachycardia, borderline hypertension, and tremors today concerning for alcohol withdraw. GI: N/V abd pain - improving. > CT A/P without acute inflammatory or obstructive process, trace ascites, moderately enlarged cirrhotic liver with hypodense nodules throughout likely regenerative nodules, cholelithiasis without obstruction. > MRI limited due to lack of contrast and patient movement: continues to show scattered hypodense lesions which are nonspecific. > Abdominal ultrasound: negative for gallstones. Mild gallbladder wall thickening, probably related to hepatocellular disease, but acalculous cholecystitis possible. Consider HIDA - Patient states does not have a GI doctor outpatient - Appreciate GI consult: Dr. Goldman and [facility]- Lactulose, zofran. Continue to monitor - Ammonia 44 - lactulose, titrate to 3-4 BM per day - Zofran 4mg q6hrs PRN nausea/vomiting -Tylenol for pain control Psych: Polysubstance abuse, acute EtOH withdraw, mood disorder - Alcohol withdraw protocol - Banana bag x1, thiamine PO daily, folate PO daily, multivitamin PO daily - Start librium taper, 50mg PO q6hr x24hrs then 25mg PO q6hrs. Change to 25mg PO BID starting tomorrow - Ativan 1gm IV q2hrs PRN withdraw symptoms - Monitor for worsening signs/symptoms of withdraw - Social work consult, patient interested in detox programs - Continue home Abilify and Zoloft Neurology: Metabolic encephalopathy - In setting of acute EtOH withdraw and cirrhosis - Treatment as per above CVS: Sinus tachycardia, hx HTN - tachycardia 2/2 EtOH withdraw - Continue home amlodipine 5mg PO daily Heme: Thrombocytopenia - Platelet 86 on admission, likely 2/2 chronic EtOH use/cirrhosis - Continue to monitor - SCDs for DVT ppx Hypophosphatemia -replete hypomagnesemia replete FEN Low sodium diet Full Code Case discussed with RN and patient. I spent 35 minutes on this encounter, with > 50% dedicated to counseling and/or coordination of care. I spent an additional 33 minutes reviewing medical records including labs, imaging, consultants, prior notes. Subjective Date patient seen: May 25, 2019 Constitutional: Denies: chills, diaphoresis, fever, malaise, weakness, other HEENT: Denies: eye pain, blurred vision, tearing, double vision, ear pain, ear discharge, nose pain, nose congestion, throat pain, throat swelling, mouth pain , mouth swelling, other Cardiovascular: Denies: chest pain, edema, irregular heart rate, lightheadedness, palpitations, syncope, other Respiratory: Denies: cough, orthopnea, shortness of breath, SOB with excertion , SOB at rest, sputum, stridor, wheezing, other Gastrointestinal/Abdominal: Reports: abdominal pain, diarrhea; Denies: abdomen distended, black stools, tarry stools, blood in stool, constipated, difficulty swallowing, nausea, poor appetite, poor fluid intake, rectal bleeding, vomiting , other Genitourinary: Denies: burning, discharge, frequency, flank pain, hematuria, incontinence, pain, urgency, other Neurologic/Psychiatric: Denies: anxiety, depressed, emotional problems, headache, numbness, paresthesia, pre-existing deficit, seizure, tingling, tremors, weakness, other Endocrine: Denies: excessive sweating, flushing, intolerance to cold, intolerance to heat, increased hunger, increased thirst, increased urine, unexplained weight gain, unexplained weight loss, other Hematologic/Lymphatic: Denies: anemia, easy bleeding, easy bruising, other Allergies: Coded Allergies: No Known Allergies (Unverified , 12/15/12) Subjective No acute events overnight. Diarrhea: started on lactulose 2 days ago. now up to 8 loose stools per day. loose, not watery, with some blood streaks. No blood in toilet. No fevers, chills, nausea or vomiting. Abdominal pain: epigastric, intermittent, not associated with eating. has improved since admission. Pending read of MRI and ultrasound. Etoh withdrawl: stable on librium taper. Tremors have improved. No hallucinations, seizures. No history of DTs or seizures. Objective Last 24 Hour Vital Signs Date Time Temp Pulse Resp B/P (MAP) Pulse Ox O2 Delivery O2 Flow Rate FiO2 05/25/19 20:10 Room Air 05/25/19 20:00 98.3 103 20 159/83 (108) 94 05/25/19 19:56 96 Room Air 21 05/25/19 16:00 97.6 101 18 130/80 (97) 95 05/25/19 12:00 97.6 105 18 146/83 (104) 96 05/25/19 11:35 97 Room Air 21 05/25/19 09:54 Room Air 05/25/19 09:26 94 141/81 05/25/19 09:18 94 141/81 (101) 05/25/19 08:00 97.5 97 16 168/87 (114) 95 05/25/19 04:00 98.1 95 20 140/91 (107) 96 Intake and Output 05/24/19 05/25/19 19:00 07:00 Intake Total 600 ml Balance 600 ml Intake Oral 600 ml # Voids 3 4 # Bowel Movements 6 2 Laboratory Tests 05/25/19 05:32: White Blood Count 5.6, Red Blood Count 3.87L, Hemoglobin 13.8, Hematocrit 41.4, Mean Corpuscular Volume 107H, Mean Corpuscular Hemoglobin 35.5H, Mean Corpuscular Hemoglobin Concent 33.3, Red Cell Distribution Width 13.6, Platelet Count 60L, Mean Platelet Volume 9.0, Neutrophils (%) (Auto) , Lymphocytes (%) ( Auto) , Monocytes (%) (Auto) , Eosinophils (%) (Auto) , Basophils (%) (Auto) , Sodium Level 139, Potassium Level 3.8, Chloride Level 107, Carbon Dioxide Level 24, Anion Gap 8, Blood Urea Nitrogen 6L, Creatinine 0.6, Estimat Glomerular Filtration Rate > 60, Glucose Level 80, Calcium Level 8.0L, Phosphorus Level 1.9L, Magnesium Level 1.4L, Total Bilirubin 2.7H, Direct Bilirubin 1.5H, Aspartate Amino Transf (AST/SGOT) 219H, Alanine Aminotransferase (ALT/SGPT) 72, Alkaline Phosphatase 237H, Total Protein 8.0, Albumin 2.3L, Globulin 5.7, Albumin/Globulin Ratio 0.4L, Alpha Fetoprotein [Pending], Hepatitis A IgM Antibody [Pending], Hepatitis B Surface Antigen [Pending], Hepatitis B Core IgM Antibody [Pending], Hepatitis C Antibody [Pending] 05/25/19 06:00: Urine Opiates Screen Negative, Urine Barbiturates Screen Negative, Phencyclidine (PCP) Screen Negative, Urine Amphetamines Screen Negative, Urine Benzodiazepines Screen PositiveH, Urine Cocaine Screen Negative, Urine Marijuana (THC) Screen Negative Height (Feet): 5 Height (Inches): 4.00 Weight (Pounds): 165 General Appearance: WD/WN, no apparent distress, alert EENT: PERRL/EOMI Neck: non-tender, normal alignment Cardiovascular: normal peripheral pulses, normal rate, regular rhythm, no JVD Respiratory/Chest: chest wall non-tender, lungs clear Abdomen: normal bowel sounds, other - soft, epigastric TTP, no rebound. 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 May 25, 2019 22:18
[2019-05-26] VITALS: BP 141/78
[2019-05-26] MEDS: chlordiazePOXIDE 25mg Cap ORAL SCH ×3 (00:07→18:00)
[2019-05-26 04:00] VITALS: BP 128/66
[2019-05-26 06:09] LABS: INR 1.3 (0.9-1.1)
[2019-05-26 06:18] LABS: ALANINE AMINOTRANSFERASE 66 U/L (12-78); ALBUMIN 2.2 G/DL (3.4-5.0); ALBUMIN/GLOBULIN RATIO 0.4 (1.0-2.7); ALKALINE PHOSPHATASE 231 U/L (46-116); ANION GAP 9 mmol/L (5-15); ASPARTATE AMINO TRANSFERASE 168 U/L (15-37); BILIRUBIN,TOTAL 2.5 MG/DL (0.2-1.0); BLOOD UREA NITROGEN 9 mg/dL (7-18); CALCIUM 7.9 MG/DL (8.5-10.1); CARBON DIOXIDE 23 MMOL/L (21-32); CHLORIDE 108 MMOL/L (98-107); CREATININE 0.7 MG/DL (0.55-1.30); PHOSPHORUS 2.7 MG/DL (2.5-4.9); SODIUM 139 MMOL/L (136-145)
[2019-05-26 06:28] LABS: BILIRUBIN,DIRECT 1.4 MG/DL (0.0-0.3)
--- NOTE | 2019-05-26 07:14 | NUR ---
HAND-OFF: Report given to Hanh Carroll RN.
--- NOTE | 2019-05-26 07:41 | NUR ---
NURSE NOTES: Patient sitting up in bed and eating breakfast,respirations unlabored,call light within reach.
[2019-05-26 08:00] VITALS: BP 127/85
[2019-05-26] MEDS: Docusate 100mg cap ORAL SCH ×2 (09:00→20:40)
[2019-05-26] MEDS: ARIPiprazole 2mg tab ORAL SCH (09:34)
[2019-05-26] MEDS: Lactulose 20gm/30ml UDC ORAL SCH (09:34)
[2019-05-26] MEDS: Thiamine 100mg tab ORAL SCH (09:35)
[2019-05-26] MEDS: Sertraline 100mg tab ORAL SCH (09:36)
--- NOTE | 2019-05-26 09:48 | General Progress Note ---
Assessment/Plan Status: stable Assessment/Plan: (1) Alcohol use ICD Codes: Z72.89 - Other problems related to lifestyle SNOMED: 183223 (2) Thrombocytopenia ICD Codes: D69.6 - Thrombocytopenia, unspecified SNOMED: 017314051 (3) Alcoholic cirrhosis of liver without ascites ICD Codes: K70.30 - Alcoholic cirrhosis of liver without ascites SNOMED: 430602786 (4) Abdominal pain ICD Codes: R10.9 - Unspecified abdominal pain SNOMED: 63937405 Qualifiers: Qualified Codes: R10.84 - Generalized abdominal pain (5) Alcohol abuse ICD Codes: F10.10 - Alcohol abuse, uncomplicated SNOMED: 76886561 . Assessment/Plan This is a 58-year-old female patient with history of polysubstance abuse, EtOH abuse, cirrhosis presents with abdominal pain. abdominal US reviewed >> - Hepatic surface nodularity, consistent with cirrhosis - Nodules described on recent CT and MRI are not sonographically evident -Hepatomegaly - Negative for gallstones. There is mild gallbladder wall thickening, probably related to hepatocellular disease. However, the possibly of acute acalculous cholecystitis should also be considered. MRI reviewed >> limited exam, patient unable to tolerate. No plans for any GI procedures at this time Advance diet as tolerated cont low dose lactulose, no need for xifaxan follow up hepatitis panel electrolyte correction PPI Zofran as needed follow labs dc planning per primary team Subjective ROS Limited/Unobtainable: Yes Allergies: Coded Allergies: No Known Allergies (Unverified , 12/15/12) Objective Last 24 Hour Vital Signs Date Time Temp Pulse Resp B/P (MAP) Pulse Ox O2 Delivery O2 Flow Rate FiO2 05/26/19 09:35 101 148/87 05/26/19 08:00 97.7 95 16 127/85 (99) 95 05/26/19 04:00 97.7 91 22 128/66 (86) 91 05/26/19 00:27 98 22 99 Room Air 21 99 22 99 05/26/19 00:00 98.2 103 20 141/78 (99) 94 05/25/19 20:10 Room Air 05/25/19 20:00 98.3 103 20 159/83 (108) 94 05/25/19 19:56 96 Room Air 21 05/25/19 16:00 97.6 101 18 130/80 (97) 95 05/25/19 12:00 97.6 105 18 146/83 (104) 96 05/25/19 11:35 97 Room Air 21 05/25/19 09:54 Room Air Intake and Output 05/25/19 05/26/19 18:59 06:59 Intake Total 240 ml 400 ml Balance 240 ml 400 ml Intake Oral 240 ml 400 ml # Voids 4 6 # Bowel Movements 3 4 Laboratory Tests 05/26/19 04:50: Prothrombin Time 13.4H, Prothromb Time International Ratio 1.3H, Activated Partial Thromboplast Time 22L, Sodium Level 139, Potassium Level 3.0L, Chloride Level 108H, Carbon Dioxide Level 23, Anion Gap 9, Blood Urea Nitrogen 9, Creatinine 0.7, Estimat Glomerular Filtration Rate > 60, Glucose Level 100, Calcium Level 7.9L, Phosphorus Level 2.7, Magnesium Level 1.8, Total Bilirubin 2.5H, Direct Bilirubin 1.4H, Aspartate Amino Transf (AST/SGOT) 168H, Alanine Aminotransferase (ALT/SGPT) 66, Alkaline Phosphatase 231H, Total Protein 7.5, Albumin 2.2L, Globulin 5.3, Albumin/Globulin Ratio 0.4L Height (Feet): 5 Height (Inches): 4.00 Weight (Pounds): 163 General Appearance: alert EENT: normal ENT inspection Neck: supple Cardiovascular: normal rate Respiratory/Chest: decreased breath sounds Abdomen: normal bowel sounds, non tender, soft Extremities: non-tender Martinez Goldman MD May 26, 2019 09:48
--- NOTE | 2019-05-26 11:13 | NUR ---
P.T NOTE: P.T REEVALUATION COMPLETED. NO SIGNIFICANT CHANGES NOR DECLINED IN FUNCTIONAL STATUS NOTED SINCE THE THE DAY OF INITIAL EVALUATION. PATIENT REMAINED INDEPENDENT IN ALL AREAS OF ADL/FUNCTIONAL MOBILITIES AND GAIT/LOCOMOTION DESPITE C/O FEELING GENERALLY WEAK. THEREFORE SKILLED P.T SERVICE IS NOT WARRANTED AT THIS TIME. NURSING TO CONTINUE TO ENCOURAGE PATIENT OOB ACTIVITIES VS BEDREST UNLESS OTHERWISE ORDERED BY MD. D/C P.T SERVICES. THANK YOU FOR THIS REFERRAL.
[2019-05-26 12:00] VITALS: BP 132/72
--- NOTE | 2019-05-26 13:26 | NUR ---
RD ASSESSMENT & RECOMMENDATIONS SEE CARE ACTIVITY FOR COMPLETE ASSESSMENT DAILY ESTIMATED NEEDS: Needs based on Liver, 64kg adj 25-30 kcals/kg 2245-7617 total kcals 1-1.5 g protein/kg 64-96 g total protein Fluid per MD NUTRITION DIAGNOSIS: Decreased sodium and fat needs r/t liver cirrhosis as evidenced by Abdominal CT, MRI, elev T bili, elev LFT's, w/ elev ammonia on adm, w/ h/o ETOH and substance abuse (+tox on adm, benzos). (CURRENT DIET: Low Na diet) PO DIET RECOMMENDATIONS--->>> Low Na/ Low Fat diet ADDITIONAL RECOMMENDATIONS: 1) Obtain standing weight for eval EMR wt: 163# vs Bed scale wt: 205# 2) Add snacks w/ continued variable po intake 3) Continue Vit B1/ folate/ MVI supplementation 4) Monitor lytes and hydration status closely on lactulose
--- NOTE | 2019-05-26 13:54 | CDS Physician Query ---
Clarification is required for compliance, coding accuracy, and to reflect severity of illness for this patient Dear Dr. Rubin Clark Date: 05/26/2019 Document Preparer Microfilming/CDS Name: Indy Priest Clinical Documentation states:05/26 note - Neurology: Metabolic encephalopathy - In setting of acute EtOH withdraw and cirrhosis Treatment: Lactulose Please indicate the nature and chronicity of the condition below: [] Acute Hepatic Encephalopathy [x] Metabolic Encephalopathy, acute [] Toxic Encephalopathy [] Encephalopathy, Other [] Dementia with Delirium [] Hypoxic encephalopathy [] Posterior reversible encephalopathy syndrome [] Other: [] Not Applicable Present on Admission: [x] Yes [] No [] Clinically Undetermined Rubin Oneal 05/26/19 Physician signature Date Please also document in your Progress Notes and/or Discharge Summary and indicate if the condition was present on admission. MTDD
[2019-05-26] MEDS: HYDROcodone/Acetamin 10/325 tab ORAL PRN (14:56)
[2019-05-26 16:00] VITALS: BP 147/83
--- NOTE | 2019-05-26 16:30 | General Progress Note ---
Assessment/Plan Problem List: (1) Colitis ICD Codes: K52.9 - Noninfective gastroenteritis and colitis, unspecified SNOMED: 553103604 (2) Cholelithiasis ICD Codes: K80.20 - Calculus of gallbladder without cholecystitis without obstruction SNOMED: 529585095 (3) Marijuana abuse ICD Codes: F12.10 - Cannabis abuse, uncomplicated SNOMED: 40044181 (4) Marijuana abuse ICD Codes: F12.10 - Cannabis abuse, uncomplicated SNOMED: 47440428 (5) Knee pain, chronic ICD Codes: M25.569 - Pain in unspecified knee; G89.29 - Other chronic pain SNOMED: 55764545 (6) Knee pain, chronic ICD Codes: M25.569 - Pain in unspecified knee; G89.29 - Other chronic pain SNOMED: 40085257 (7) Strain of left hip ICD Codes: S76.012A - Strain of muscle, fascia and tendon of left hip, initial encounter SNOMED: 897213368 (8) Strain of left hip ICD Codes: S76.012A - Strain of muscle, fascia and tendon of left hip, initial encounter SNOMED: 984286654 (9) Nail brittleness ICD Codes: L60.3 - Nail dystrophy SNOMED: 56569366 (10) Skin lesion of hand ICD Codes: L98.9 - Disorder of the skin and subcutaneous tissue, unspecified SNOMED: 208719608 (11) Nail brittleness ICD Codes: L60.3 - Nail dystrophy SNOMED: 54942567 (12) Sciatica ICD Codes: M54.30 - Sciatica, unspecified side SNOMED: 18525537 (13) Sciatica ICD Codes: M54.30 - Sciatica, unspecified side SNOMED: 98283168 (14) Methamphetamine abuse ICD Codes: F15.10 - Otherstimulant abuse, uncomplicated SNOMED: 439819024 (15) Substance abuse ICD Codes: F19.10 - Other psychoactive substance abuse, uncomplicated SNOMED: 35902312 (16) Alcohol abuse ICD Codes: F10.10 - Alcohol abuse, uncomplicated SNOMED: 76952093 (17) Abdominal pain ICD Codes: R10.9 - Unspecified abdominal pain SNOMED: 82205493 Qualifiers: Qualified Codes: R10.84 - Generalized abdominal pain (18) Drug-seeking behavior ICD Codes: F19.10 - Other psychoactive substance abuse, uncomplicated SNOMED: 434091377 (19) Alcoholic cirrhosis of liver without ascites ICD Codes: K70.30 - Alcoholic cirrhosis of liver without ascites SNOMED: 301788992 (20) Thrombocytopenia ICD Codes: D69.6 - Thrombocytopenia, unspecified SNOMED: 729332980 Status: stable Assessment/Plan: Kandy Negrete is a 58 yo woman with PMH of alcoholic cirrhosis, polysubstance abuse (EtOH, methamphetamine, marijuana), COPD, and HTN who presented with several days of poor PO intake, N/V, abdominal discomfort and generalized weakness, found with labs notable for platelet 86, no leukocytosis, hypokalemia 2.9, tranaminitis with AST>ALT, and overall unremarkable CT A/P for acute process. Patient also noted with tachycardia, borderline hypertension, and tremors today concerning for alcohol withdraw. GI: N/V abd pain - improving but persistent. Elevated GGT and alk phos with Ultrasound findings suspicous for acalculous cholecystitis. Rule out cholecystitis > CT A/P without acute inflammatory or obstructive process, trace ascites, moderately enlarged cirrhotic liver with hypodense nodules throughout likely regenerative nodules, cholelithiasis without obstruction. > MRI limited due to lack of contrast and patient movement: continues to show scattered hypodense lesions which are nonspecific. > Abdominal ultrasound: negative for gallstones. Mild gallbladder wall thickening, probably related to hepatocellular disease, but acalculous cholecystitis possible. Consider HIDA - Patient states does not have a GI doctor outpatient - Appreciate GI consult: Dr. Goldman and TAX ASSISTANT Sylvia- Lactulose, zofran. Continue to monitor - Ammonia 44 - lactulose, titrate to 3-4 BM per day - Zofran 4mg q6hrs PRN nausea/vomiting -Tylenol for pain control - HIDA scan today Psych: Polysubstance abuse, acute EtOH withdraw, mood disorder - Alcohol withdraw protocol - Banana bag x1, thiamine PO daily, folate PO daily, multivitamin PO daily - Start librium taper, 50mg PO q6hr x24hrs then 25mg PO q6hrs. Change to 25mg PO BID 05/26/19 - Ativan 1gm IV q2hrs PRN withdraw symptoms - Monitor for worsening signs/symptoms of withdraw - Social work consult, patient interested in detox programs - Continue home Abilifnavdeep and Zoloft Neurology: Metabolic encephalopathy - In setting of acute EtOH withdraw and cirrhosis - Treatment as per above CVS: Sinus tachycardia, hx HTN - tachycardia 2/2 EtOH withdraw - Continue home amlodipine 5mg PO daily Heme: Thrombocytopenia - Platelet 86 on admission, likely 2/2 chronic EtOH use/cirrhosis - Continue to monitor - SCDs for DVT ppx Hypophosphatemia -replete hypomagnesemia replete FEN Low sodium diet Full Code Case discussed with RN and patient. I spent 37 minutes on this encounter, with > 50% dedicated to counseling and/or coordination of care. Time of note may not reflect time patient was seen. Subjective Constitutional: Denies: chills, diaphoresis, fever, malaise, weakness, other HEENT: Denies: eye pain, blurred vision, tearing, double vision, ear pain, ear discharge, nose pain, nose congestion, throat pain, throat swelling, mouth pain , mouth swelling, other Cardiovascular: Denies: chest pain, edema, irregular heart rate, lightheadedness, palpitations, syncope, other Respiratory: Denies: cough, orthopnea, shortness of breath, SOB with excertion , SOB at rest, sputum, stridor, wheezing, other Gastrointestinal/Abdominal: Denies: abdomen distended, abdominal pain, black stools, tarry stools, blood in stool, constipated, diarrhea, difficulty swallowing, nausea, poor appetite, poor fluid intake, rectal bleeding, vomiting , other Genitourinary: Denies: no symptoms, burning, discharge, frequency, flank pain, hematuria, incontinence, pain, urgency, other Neurologic/Psychiatric: Denies: anxiety, depressed, emotional problems, headache, numbness, paresthesia, pre-existing deficit, seizure, tingling, tremors, weakness, other Endocrine: Denies: excessive sweating, flushing, intolerance to cold, intolerance to heat, increased hunger, increased thirst, increased urine, unexplained weight gain, unexplained weight loss, other Hematologic/Lymphatic: Denies: anemia, easy bleeding, easy bruising, other Allergies: Coded Allergies: No Known Allergies (Unverified , 12/15/12) Subjective No acute events overnight. Diarrhea: started on lactulose 2 days ago. Improving now. with some blood streaks. No blood in toilet. No fevers, chills, nausea or vomiting. Abdominal pain: epigastric, intermittent, worse with eating. has improved since admission. Etoh withdrawl: stable on librium taper. Tremors have improved. No hallucinations, seizures. No history of DTs or seizures. Objective Last 24 Hour Vital Signs Date Time Temp Pulse Resp B/P (MAP) Pulse Ox O2 Delivery O2 Flow Rate FiO2 05/26/19 12:00 98.1 93 17 132/72 (92) 96 05/26/19 09:35 101 148/87 05/26/19 09:00 Room Air 05/26/19 08:00 97.7 95 16 127/85 (99) 95 05/26/19 04:00 97.7 91 22 128/66 (86) 91 05/26/19 00:27 98 22 99 Room Air 21 99 22 99 05/26/19 00:00 98.2 103 20 141/78 (99) 94 05/25/19 20:10 Room Air 05/25/19 20:00 98.3 103 20 159/83 (108) 94 05/25/19 19:56 96 Room Air 21 Intake and Output 05/25/19 05/26/19 19:00 07:00 Intake Total 240 ml 400 ml Balance 240 ml 400 ml Intake Oral 240 ml 400 ml # Voids 4 6 # Bowel Movements 3 4 Laboratory Tests 05/26/19 04:50: Prothrombin Time 13.4H, Prothromb Time International Ratio 1.3H, Activated Partial Thromboplast Time 22L, Sodium Level 139, Potassium Level 3.0L, Chloride Level 108H, Carbon Dioxide Level 23, Anion Gap 9, Blood Urea Nitrogen 9, Creatinine 0.7, Estimat Glomerular Filtration Rate > 60, Glucose Level 100, Calcium Level 7.9L, Phosphorus Level 2.7, Magnesium Level 1.8, Total Bilirubin 2.5H, Direct Bilirubin 1.4H, Gamma Glutamyl Transpeptidase 661H, Aspartate Amino Transf (AST/SGOT) 168H, Alanine Aminotransferase (ALT/SGPT) 66, Alkaline Phosphatase 231H, Total Protein 7.5, Albumin 2.2L, Globulin 5.3, Albumin/ Globulin Ratio 0.4L Height (Feet): 5 Height (Inches): 4.00 Weight (Pounds): 163 General Appearance: WD/WN, no apparent distress, alert EENT: PERRL/EOMI, normal ENT inspection Neck: non-tender, normal alignment Cardiovascular: normal peripheral pulses, normal rate, regular rhythm Respiratory/Chest: chest wall non-tender, lungs clear Abdomen: normal bowel sounds, soft, other - mild TTP in epigastric region/RUQ. No rebound/guarding Extremities: other - no LE edema bilatearlly Neurologic: car dumper II-XII grossly normal, no motor/sensory deficits, alert, oriented x 3 Skin: normal pigmentation, warm/dry Rubin Oneal D.O. May 26, 2019 16:30
--- NOTE | 2019-05-26 18:00 | NUR ---
NURSE NOTES: Patient resting,has visitor,no complaints at this time.Call light within reach.
--- NOTE | 2019-05-26 19:20 | NUR ---
HAND-OFF: Report given to AMADOU MODI.
[2019-05-26 20:00] VITALS: BP 112/68
--- NOTE | 2019-05-26 20:00 | NUR ---
NURSE NOTES: Received patient awake,alert,verbal,resting in bed,visitor at bedside.
[2019-05-26] MEDS: LORazepam Inj 2mg/ml 1ml IV PRN (20:38)
[2019-05-27 00:09] VITALS: BP 133/78
[2019-05-27] MEDS: LORazepam Inj 2mg/ml 1ml IV PRN ×3 (04:05→19:39)
[2019-05-27 04:11] VITALS: BP 130/76
[2019-05-27 06:49] LABS: ALANINE AMINOTRANSFERASE 68 U/L (12-78); ALBUMIN 2.3 G/DL (3.4-5.0); ALBUMIN/GLOBULIN RATIO 0.4 (1.0-2.7); ALKALINE PHOSPHATASE 214 U/L (46-116); AMMONIA 67 umol/L (11-32); ANION GAP 6 mmol/L (5-15); ASPARTATE AMINO TRANSFERASE 156 U/L (15-37); BILIRUBIN,TOTAL 3.2 MG/DL (0.2-1.0); BLOOD UREA NITROGEN 11 mg/dL (7-18); CALCIUM 8.4 MG/DL (8.5-10.1); CARBON DIOXIDE 23 MMOL/L (21-32); CHLORIDE 111 MMOL/L (98-107); CREATININE 0.7 MG/DL (0.55-1.30); HEMATOCRIT 38.9 % (37.0-47.0); HEMOGLOBIN 12.7 G/DL (12.0-16.0); MEAN CORPUSCULAR VOLUME 109 FL (80-99); PLATELET COUNT 76 K/UL (150-450); RED BLOOD COUNT 3.57 M/UL (4.20-5.40); RED CELL DISTRIBUTION WIDTH 13.8 % (11.6-14.8); SODIUM 140 MMOL/L (136-145); WHITE BLOOD COUNT 6.7 K/UL (4.8-10.8)
--- NOTE | 2019-05-27 07:33 | NUR ---
HAND-OFF: Report given to Lillie Cobb RN.
[2019-05-27 08:00] VITALS: BP 128/79
--- NOTE | 2019-05-27 08:01 | NUR ---
NURSE NOTES: Patient awake, alert x4; on room air, no sing of distress; IV RFA 24F TKO; Side rails padded, bed at lowest position, breaks engaged; bed side Commode within reach; I called MD Noriega to get order for Morphine, by the recommendation from [facility] patient needs Morphine to stabilize her during procedure. waiting for call back.
--- NOTE | 2019-05-27 08:07 | NUR ---
NURSE NOTES: I received order from MD Salinas, will carry out as order given.
[2019-05-27] MEDS ORDERED: Morphine Sulfate 2mg/ml Inj(IV/IM USE ONLY) IVP SCH (08:15)
[2019-05-27] MEDS: ARIPiprazole 2mg tab ORAL SCH (08:34)
[2019-05-27] MEDS: Thiamine 100mg tab ORAL SCH (08:34)
[2019-05-27] MEDS: Sertraline 100mg tab ORAL SCH (08:35)
[2019-05-27] MEDS: chlordiazePOXIDE 25mg Cap ORAL SCH (08:35)
[2019-05-27] MEDS: Lactulose 20gm/30ml UDC ORAL SCH (08:39)
[2019-05-27] MEDS: Docusate 100mg cap ORAL SCH ×2 (08:39→21:00)
--- NOTE | 2019-05-27 10:11 | NUR ---
NM Hepatobiliary (HIDA) scan complete.
--- NOTE | 2019-05-27 11:14 | NUR ---
TAILINGS MANPUDDLER PILE DRIVING SI: GENERALIZED WEAKNESS, CIRRHOSIS T. 98.3 HR 80 RR 20 B/P 128/79 RA 99% TOTAL INNA 3.2 DIRECT INNA 2.0 AST 156 ALK PHOS 214 AMMONIA 67 IS: LACTULOSE PO THIAMINE PO FOLATE PO HIDA SCAN MED/SURG STATUS
--- NOTE | 2019-05-27 11:30 | Diagnostic Imaging Report ---
Indication: Abdominal Pain Technique: 5.4 mCi of technetium 99 m-Choletec was injected intravenously. Planar imaging of the abdomen was then performed every 5 minutes up to 30 minutes and every 10 minutes up to one hour. Oblique views were also obtained. Findings: There is prompt uptake within the liver with good washout of radiotracer from the liver on subsequent imaging. There is excretion into the biliary ducts. Gallbladder activity is present in a timely fashion indicating patency of the cystic duct. Bowel activity is demonstrated in a timely fashion indicating patency of the common bile duct. Impression: Normal HIDA scan
[2019-05-27 12:00] VITALS: BP 131/82
--- NOTE | 2019-05-27 12:59 | GI Progress Note ---
Assessment/Plan Problems: (1) Alcohol use ICD Codes: Z72.89 - Other problems related to lifestyle SNOMED: 989409 (2) Thrombocytopenia ICD Codes: D69.6 - Thrombocytopenia, unspecified SNOMED: 308629951 (3) Alcoholic cirrhosis of liver without ascites ICD Codes: K70.30 - Alcoholic cirrhosis of liver without ascites SNOMED: 873520555 (4) Abdominal pain ICD Codes: R10.9 - Unspecified abdominal pain SNOMED: 47693600 Qualifiers: Qualified Codes: R10.84 - Generalized abdominal pain (5) Alcohol abuse ICD Codes: F10.10 - Alcohol abuse, uncomplicated SNOMED: 08046544 Status: stable Status Narrative Discussed with Dr. Goldman. Assessment/Plan This is a 58-year-old female patient with history of polysubstance abuse, EtOH abuse, cirrhosis presents with abdominal pain. abdominal US reviewed >> - Hepatic surface nodularity, consistent with cirrhosis - Nodules described on recent CT and MRI are not sonographically evident -Hepatomegaly - Negative for gallstones. There is mild gallbladder wall thickening, probably related to hepatocellular disease. However, the possibly of acute acalculous cholecystitis should also be considered. MRI reviewed >> limited exam, patient unable to tolerate. Hepatitis C positive No plans for any GI procedures at this time Advance diet as tolerated cont low dose lactulose, no need for xifaxan outpatient Hep C treatment electrolyte correction PPI Zofran as needed follow labs, HIDA dc planning The patient was seen and examined at bedside and all new and available data was reviewed in the patients chart. I agree with the above findings, impression and plan. (Patient seen earlier today. Signature stamp does not reflect patient encounter time.). - Martinez Goldman MD Subjective Subjective abdominal pain improved Objective Last 24 Hour Vital Signs Date Time Temp Pulse Resp B/P (MAP) Pulse Ox O2 Delivery O2 Flow Rate FiO2 05/27/19 12:00 98.7 86 20 131/82 (98) 98 05/27/19 09:00 Room Air 05/27/19 08:34 80 128/79 05/27/19 08:00 98.3 80 20 128/79 (95) 96 05/27/19 04:11 97.8 81 20 130/76 (94) 94 05/27/19 00:09 97.4 80 20 133/78 (96) 96 05/26/19 20:55 Room Air 05/26/19 20:29 97 Room Air 21 05/26/19 20:00 97.9 84 20 112/68 (83) 93 05/26/19 16:00 98.7 99 18 147/83 (104) 96 Intake and Output 05/26/19 05/27/19 18:59 06:59 Intake Total 900 ml Balance 900 ml Other 900 ml # Voids 1 Laboratory Tests Test 05/27/19 05:45 05/27/19 10:45 White Blood Count 6.7 K/UL (4.8-10.8) Red Blood Count 3.57 M/UL (4.20-5.40) L Hemoglobin 12.7 G/DL (12.0-16.0) Hematocrit 38.9 % (37.0-47.0) Mean Corpuscular Volume 109 FL (80-99) H Mean Corpuscular Hemoglobin 35.5 PG (27.0-31.0) H Mean Corpuscular Hemoglobin Concent 32.6 G/DL (32.0-36.0) Red Cell Distribution Width 13.8 % (11.6-14.8) Platelet Count 76 K/UL (150-450) L Mean Platelet Volume 10.9 FL (6.5-10.1) H Neutrophils (%) (Auto) % (45.0-75.0) Lymphocytes (%) (Auto) % (20.0-45.0) Monocytes (%) (Auto) % (1.0-10.0) Eosinophils (%) (Auto) % (0.0-3.0) Basophils (%) (Auto) % (0.0-2.0) Differential Total Cells Counted 100 Neutrophils % (Manual) 63 % (45-75) Lymphocytes % (Manual) 24 % (20-45) Monocytes % (Manual) 11 % (1-10) H Eosinophils % (Manual) 1 % (0-3) Basophils % (Manual) 1 % (0-2) Band Neutrophils 0 % (0-8) Platelet Estimate Decreased L Platelet Morphology Normal Sodium Level 140 MMOL/L (136-145) Potassium Level 4.0 MMOL/L (3.5-5.1) Chloride Level 111 MMOL/L (98-107) H Carbon Dioxide Level 23 MMOL/L (21-32) Anion Gap 6 mmol/L (5-15) Blood Urea Nitrogen 11 mg/dL (7-18) Creatinine 0.7 MG/DL (0.55-1.30) Estimat Glomerular Filtration Rate > 60 mL/min (>60) Glucose Level 106 MG/DL (74-106) Calcium Level 8.4 MG/DL (8.5-10.1) L Total Bilirubin 3.2 MG/DL (0.2-1.0) H Direct Bilirubin 2.0 MG/DL (0.0-0.3) H Aspartate Amino Transf (AST/SGOT) 156 U/L (15-37) H Alanine Aminotransferase (ALT/SGPT) 68 U/L (12-78) Alkaline Phosphatase 214 U/L (46-116) H Ammonia 67 umol/L (11-32) H Total Protein 7.5 G/DL (6.4-8.2) Albumin 2.3 G/DL (3.4-5.0) L Globulin 5.2 g/dL Albumin/Globulin Ratio 0.4 (1.0-2.7) L Alpha Fetoprotein Pending Hepatitis C Antibody Pending Hepatitis C RNA (PCR) IUs/ml Pending Hepatitis C RNA (PCR) log IUs/ml Pending Hepatitis C Genotype Pending Height (Feet): 5 Height (Inches): 4.00 Weight (Pounds): 163 General Appearance: WD/WN, no apparent distress, alert Cardiovascular: normal rate Respiratory/Chest: normal breath sounds, no respiratory distress Abdominal Exam: normal bowel sounds, non tender, soft Extremities: normal range of motion, non-tender Cheyenne Ward NP May 27, 2019 12:58
--- NOTE | 2019-05-27 14:25 | NUR ---
*-* INSURANCE*-* UPDATED CLINICALS HAVE BEEN FAXED TO: [employer]#[id number] CM:Lnei #[phone] ext [phone] fax#[phone]
--- NOTE | 2019-05-27 14:36 | NUR ---
REHAB P.T NOTE: P.T RECONSULT RECEIVED DUE TO PATIENT'S DECLINED IN FUNCTIONAL STATUS. P.T RE-EVALUATION COMPLETED. PATIENT IS ALERT, O X 4 AND COOPERATIVE. PATIENT DENIED MAJOR C/O PAIN BUT FEELING GENERALLY WEAK. OVERALL STRENGTH OF BUE ARE GROSSLY 3+/5. PATIENT ABLE TO SIT UNSUPPORTED HOWEVER NEEDED SUPPORT TO MAINTAIN STANDING BALANCE. PATIENT REQUIRES EXTENDED TIME AND MIN A X 1 TO INITIATE AND COMPLETE BED MOBILITY AND TRANSFER MOBILITY TASKS . PATIENT ABLE TO AMBULATE 4 STEPS WITH HAND IN HAND/MIN SUPPORT TO MAINTAIN AMBULATORY BALANCE. PATIENT WILL BE SEEN FOR P.T TO IMPROVE STRENGTH AND ACTIVITY TOLERANCE TO INCREASE MOBILITY INDEPENDENCE AND SAFETY. RECOMMEND SNF FOR FURTHER REHAB [place]ION AT [place]
[2019-05-27 16:00] VITALS: BP 136/86
--- NOTE | 2019-05-27 16:33 | General Progress Note ---
Assessment/Plan Problem List: (1) Colitis ICD Codes: K52.9 - Noninfective gastroenteritis and colitis, unspecified SNOMED: 006642927 (2) Cholelithiasis ICD Codes: K80.20 - Calculus of gallbladder without cholecystitis without obstruction SNOMED: 503517277 (3) Marijuana abuse ICD Codes: F12.10 - Cannabis abuse, uncomplicated SNOMED: 17973942 (4) Marijuana abuse ICD Codes: F12.10 - Cannabis abuse, uncomplicated SNOMED: 43141175 (5) Knee pain, chronic ICD Codes: M25.569 - Pain in unspecified knee; G89.29 - Other chronic pain SNOMED: 82348092 (6) Knee pain, chronic ICD Codes: M25.569 - Pain in unspecified knee; G89.29 - Other chronic pain SNOMED: 88083484 (7) Strain of left hip ICD Codes: S76.012A - Strain of muscle, fascia and tendon of left hip, initial encounter SNOMED: 203505417 (8) Strain of left hip ICD Codes: S76.012A - Strain of muscle, fascia and tendon of left hip, initial encounter SNOMED: 468277114 (9) Nail brittleness ICD Codes: L60.3 - Nail dystrophy SNOMED: 70661917 (10) Skin lesion of hand ICD Codes: L98.9 - Disorder of the skin and subcutaneous tissue, unspecified SNOMED: 856035064 (11) Nail brittleness ICD Codes: L60.3 - Nail dystrophy SNOMED: 15489230 (12) Sciatica ICD Codes: M54.30 - Sciatica, unspecified side SNOMED: 78223413 (13) Sciatica ICD Codes: M54.30 - Sciatica, unspecified side SNOMED: 66507800 (14) Methamphetamine abuse ICD Codes: F15.10 - Otherstimulant abuse, uncomplicated SNOMED: 810110857 (15) Substance abuse ICD Codes: F19.10 - Other psychoactive substance abuse, uncomplicated SNOMED: 86952728 (16) Alcohol abuse ICD Codes: F10.10 - Alcohol abuse, uncomplicated SNOMED: 55408405 (17) Abdominal pain ICD Codes: R10.9 - Unspecified abdominal pain SNOMED: 56248651 Qualifiers: Qualified Codes: R10.84 - Generalized abdominal pain (18) Drug-seeking behavior ICD Codes: F19.10 - Other psychoactive substance abuse, uncomplicated SNOMED: 306006010 (19) Alcoholic cirrhosis of liver without ascites ICD Codes: K70.30 - Alcoholic cirrhosis of liver without ascites SNOMED: 937120464 (20) Thrombocytopenia ICD Codes: D69.6 - Thrombocytopenia, unspecified SNOMED: 480956557 Status: stable Assessment/Plan: Kandy Negrete is a 58 yo woman with PMH of alcoholic cirrhosis, polysubstance abuse (EtOH, methamphetamine, marijuana), COPD, and HTN who presented with several days of poor PO intake, N/V, abdominal discomfort and generalized weakness, found with labs notable for platelet 86, no leukocytosis, hypokalemia 2.9, tranaminitis with AST>ALT, and overall unremarkable CT A/P for acute process. Patient also noted with tachycardia, borderline hypertension, and tremors today concerning for alcohol withdraw. #N/V abd pain - improving but persistent. Elevated GGT and alk phos with Ultrasound findings suspicous for acalculous cholecystitis. Rule out cholecystitis. NPO for HIDA scan today #hepatitis C and Etoh cirrhosis, new diagnosis > CT A/P without acute inflammatory or obstructive process, trace ascites, moderately enlarged cirrhotic liver with hypodense nodules throughout likely regenerative nodules, cholelithiasis without obstruction. > MRI limited due to lack of contrast and patient movement: continues to show scattered hypodense lesions which are nonspecific. > Abdominal ultrasound: negative for gallstones. Mild gallbladder wall thickening, probably related to hepatocellular disease, but acalculous cholecystitis possible. Consider HIDA - Patient states does not have a GI doctor outpatient - Appreciate GI consult: Dr. Goldman and [facility]- Lactulose, zofran. Continue to monitor - Ammonia 44 - lactulose, titrate to 3-4 BM per day - Zofran 4mg q6hrs PRN nausea/vomiting -Tylenol for pain control - HIDA scan today. Unable to complete yesterday #hepatitis C - discussed with patient diagnosis and need for treatment. Patient agreeable - send for HCV RNA and genotype #Polysubstance abuse, acute EtOH withdraw, mood disorder - Alcohol withdraw protocol - Banana bag x1, thiamine PO daily, folate PO daily, multivitamin PO daily - Discontinue librium taper, - Ativan 0.5gm IV q2hrs PRN withdraw symptoms - Monitor for worsening signs/symptoms of withdraw - Social work consult, patient interested in detox programs - Continue home Abilify and Zoloft #Generalized weakness, could be 2/2 cirrhosis, length of stay, multiple medical problems - PT to evaluate for SNF rehab #Metabolic encephalopathy - Resolved - In setting of acute EtOH withdraw and cirrhosis - Treatment as per above #Sinus tachycardia, hx HTN - tachycardia 2/2 EtOH withdraw - Continue home amlodipine 5mg PO daily #Thrombocytopenia 2/2 cirrhosis - Platelet 86 on admission, likely 2/2 chronic EtOH use/cirrhosis - Continue to monitor - SCDs for DVT ppx Hypophosphatemia -replete hypomagnesemia replete FEN Low sodium diet Full Code Case discussed with RN, physical therapy, and patient. I spent 36 minutes on this encounter, with >50% dedicated to counseling and/or coordination of care. Time of note may not reflect time patient was seen. Subjective Date patient seen: May 27, 2019 Constitutional: Denies: chills, diaphoresis, fever, malaise, weakness, other HEENT: Denies: eye pain, blurred vision, tearing, double vision, ear pain, ear discharge, nose pain, nose congestion, throat pain, throat swelling, mouth pain , mouth swelling, other Cardiovascular: Denies: chest pain, edema, irregular heart rate, lightheadedness, palpitations, syncope, other Respiratory: Denies: cough, orthopnea, shortness of breath, SOB with excertion , SOB at rest, sputum, stridor, wheezing, other Gastrointestinal/Abdominal: Denies: abdomen distended, abdominal pain, black stools, tarry stools, blood in stool, constipated, diarrhea, difficulty swallowing, nausea, poor appetite, poor fluid intake, rectal bleeding, vomiting , other Genitourinary: Denies: burning, discharge, frequency, flank pain, hematuria, incontinence, pain, urgency, other Neurologic/Psychiatric: Denies: anxiety, depressed, emotional problems, headache, numbness, paresthesia, pre-existing deficit, seizure, tingling, tremors, weakness, other Endocrine: Denies: excessive sweating, flushing, intolerance to cold, intolerance to heat, increased hunger, increased thirst, increased urine, unexplained weight gain, unexplained weight loss, other Hematologic/Lymphatic: Denies: anemia, easy bleeding, easy bruising, other Allergies: Coded Allergies: No Known Allergies (Unverified , 12/15/12) Subjective No acute events overnight per nursing Diarrhea: Resolved off lactulose. No more hematochezia. No fevers, chills, nausea or vomiting. Abdominal pain: Resolving. post-prandial. NPO for HIDA scan today. Etoh withdrawl: stable on librium taper. Tremors have improved. No hallucinations, seizures. No history of DTs or seizures. Objective Last 24 Hour Vital Signs Date Time Temp Pulse Resp B/P (MAP) Pulse Ox O2 Delivery O2 Flow Rate FiO2 05/27/19 12:00 98.7 86 20 131/82 (98) 98 05/27/19 09:32 95 Room Air 21 05/27/19 09:00 Room Air 05/27/19 08:34 80 128/79 05/27/19 08:00 98.3 80 20 128/79 (95) 96 05/27/19 04:11 97.8 81 20 130/76 (94) 94 05/27/19 00:09 97.4 80 20 133/78 (96) 96 05/26/19 20:55 Room Air 05/26/19 20:29 97 Room Air 21 05/26/19 20:00 97.9 84 20 112/68 (83) 93 Intake and Output 05/26/19 05/27/19 19:00 07:00 Intake Total 900 ml Balance 900 ml Other 900 ml # Voids 1 Laboratory Tests 05/27/19 05:45: White Blood Count 6.7, Red Blood Count 3.57L, Hemoglobin 12.7, Hematocrit 38.9, Mean Corpuscular Volume 109H, Mean Corpuscular Hemoglobin 35.5H, Mean Corpuscular Hemoglobin Concent 32.6, Red Cell Distribution Width 13.8, Platelet Count 76L, Mean Platelet Volume 10.9H, Neutrophils (%) (Auto) , Lymphocytes (%) (Auto) , Monocytes (%) (Auto) , Eosinophils (%) (Auto) , Basophils (%) (Auto) , Differential Total Cells Counted 100, Neutrophils % (Manual) 63, Lymphocytes % ( Manual) 24, Monocytes % (Manual) 11H, Eosinophils % (Manual) 1, Basophils % ( Manual) 1, Band Neutrophils 0, Platelet Estimate DecreasedL, Platelet Morphology Normal, Sodium Level 140, Potassium Level 4.0, Chloride Level 111H, Carbon Dioxide Level 23, Anion Gap 6, Blood Urea Nitrogen 11, Creatinine 0.7, Estimat Glomerular Filtration Rate > 60, Glucose Level 106, Calcium Level 8.4L, Total Bilirubin 3.2H, Direct Bilirubin 2.0H, Aspartate Amino Transf (AST/SGOT) 156H, Alanine Aminotransferase (ALT/SGPT) 68, Alkaline Phosphatase 214H, Ammonia 67H, Total Protein 7.5, Albumin 2.3L, Globulin 5.2, Albumin/Globulin Ratio 0.4L, Alpha Fetoprotein [Pending] 05/27/19 10:45: Hepatitis C Antibody [Pending], Hepatitis C RNA (PCR) IUs/ml [Pending], Hepatitis C RNA (PCR) log IUs/ml [Pending], Hepatitis C Genotype [Pending] Height (Feet): 5 Height (Inches): 4.00 Weight (Pounds): 163 General Appearance: WD/WN, no apparent distress, alert - appears genearlized fatigue. 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 May 27, 2019 16:33
--- NOTE | 2019-05-27 19:31 | NUR ---
HAND-OFF: Report given to LY Castaneda.
[2019-05-27 20:00] VITALS: BP 141/70
--- NOTE | 2019-05-27 21:00 | NUR ---
NURSE NOTES: RECEIVED PT FROM LY HURST. PT IS AWAKE, AAO X4, ON ROOM AIR, SITTING UP IN BED, VISIBLE ANXIOUS AND TENSION NOTED. PRN ATIVAN GIVEN. IV ON LEFT FA 24G IS INTACT AND PATENT. BED IS LOCKED AND LOW, BED ALARMS ACTIVE, SIDE RAILS UP X2, AND CALL LIGHT IS WITHIN REACH. WILL CONTINUE TO MONITOR.
[2019-05-28] VITALS: BP 125/64
[2019-05-28] MEDS: LORazepam Inj 2mg/ml 1ml IV PRN ×3 (02:26→20:22)
[2019-05-28 04:00] VITALS: BP 128/85
[2019-05-28 06:55] LABS: HEMATOCRIT 41.5 % (37.0-47.0); HEMOGLOBIN 13.4 G/DL (12.0-16.0); MEAN CORPUSCULAR VOLUME 111 FL (80-99); PLATELET COUNT 89 K/UL (150-450); RED BLOOD COUNT 3.74 M/UL (4.20-5.40); RED CELL DISTRIBUTION WIDTH 13.6 % (11.6-14.8)
[2019-05-28 07:09] LABS: ALANINE AMINOTRANSFERASE 71 U/L (12-78); ALBUMIN 2.4 G/DL (3.4-5.0); ALBUMIN/GLOBULIN RATIO 0.4 (1.0-2.7); ALKALINE PHOSPHATASE 229 U/L (46-116); ANION GAP 7 mmol/L (5-15); ASPARTATE AMINO TRANSFERASE 164 U/L (15-37); BILIRUBIN,TOTAL 3.1 MG/DL (0.2-1.0); BLOOD UREA NITROGEN 7 mg/dL (7-18); CALCIUM 8.6 MG/DL (8.5-10.1); CARBON DIOXIDE 25 MMOL/L (21-32); CHLORIDE 109 MMOL/L (98-107); CREATININE 0.7 MG/DL (0.55-1.30); SODIUM 140 MMOL/L (136-145)
[2019-05-28 07:26] LABS: PHOSPHORUS 2.6 MG/DL (2.5-4.9)
--- NOTE | 2019-05-28 07:50 | NUR ---
NURSE NOTES: Received report from Louisa, RN. Patient sleeping. On room air, no signs of distress or labored breathing. IV intact, patent, and saline locked. Bed in lowest position with call light in reach. Will continue with plan of care.
--- NOTE | 2019-05-28 07:52 | NUR ---
HAND-OFF: Report given to LY Patino.
[2019-05-28 08:00] VITALS: BP 138/76
[2019-05-28] MEDS: Lactulose 20gm/30ml UDC ORAL SCH (09:00)
[2019-05-28] MEDS: Docusate 100mg cap ORAL SCH ×2 (09:00→20:22)
[2019-05-28] MEDS: Sertraline 100mg tab ORAL SCH (09:40)
[2019-05-28] MEDS: ARIPiprazole 2mg tab ORAL SCH (09:40)
[2019-05-28] MEDS: Thiamine 100mg tab ORAL SCH (09:41)
[2019-05-28] MEDS: HYDROcodone/Acetamin 10/325 tab ORAL PRN (09:42)
[2019-05-28 12:00] VITALS: BP 127/70
--- NOTE | 2019-05-28 12:55 | GI Progress Note ---
Assessment/Plan Problems: (1) Alcohol use ICD Codes: Z72.89 - Other problems related to lifestyle SNOMED: 820945 (2) Thrombocytopenia ICD Codes: D69.6 - Thrombocytopenia, unspecified SNOMED: 313074774 (3) Alcoholic cirrhosis of liver without ascites ICD Codes: K70.30 - Alcoholic cirrhosis of liver without ascites SNOMED: 880823683 (4) Abdominal pain ICD Codes: R10.9 - Unspecified abdominal pain SNOMED: 52497348 Qualifiers: Qualified Codes: R10.84 - Generalized abdominal pain (5) Alcohol abuse ICD Codes: F10.10 - Alcohol abuse, uncomplicated SNOMED: 45280353 Status: stable Status Narrative Discussed with Dr. Goldman. Assessment/Plan This is a 58-year-old female patient with history of polysubstance abuse, EtOH abuse, cirrhosis presents with abdominal pain. abdominal US reviewed >> - Hepatic surface nodularity, consistent with cirrhosis - Nodules described on recent CT and MRI are not sonographically evident -Hepatomegaly - Negative for gallstones. There is mild gallbladder wall thickening, probably related to hepatocellular disease. However, the possibly of acute acalculous cholecystitis should also be considered. MRI reviewed >> limited exam, patient unable to tolerate. Hepatitis C positive HIDA negative No plans for any GI procedures at this time Advance diet as tolerated cont low dose lactulose, no need for xifaxan outpatient Hep C treatment electrolyte correction PPI Zofran as needed follow labs dc planning The patient was seen and examined at bedside and all new and available data was reviewed in the patients chart. I agree with the above findings, impression and plan. (Patient seen earlier today. Signature stamp does not reflect patient encounter time.). - Martinez Goldman MD Subjective Subjective abdominal pain improved Objective Last 24 Hour Vital Signs Date Time Temp Pulse Resp B/P (MAP) Pulse Ox O2 Delivery O2 Flow Rate FiO2 05/28/19 09:40 87 138/76 05/28/19 09:00 Nasal Cannula 2.0 05/28/19 08:00 98.3 87 18 138/76 (96) 94 05/28/19 07:35 95 Room Air 21 05/28/19 04:00 98.0 87 20 128/85 (99) 94 05/28/19 00:00 98.0 89 24 125/64 (84) 94 05/27/19 21:00 Room Air 10/3/19 20:15 96 Room Air 21 05/27/19 20:00 98.1 88 24 141/70 (93) 99 05/27/19 16:00 98.6 84 19 136/86 (103) 98 Intake and Output 05/27/19 05/28/19 18:59 06:59 Intake Total 1600 ml 200 ml Balance 1600 ml 200 ml Intake Oral 1600 ml Other 200 ml # Voids 4 2 # Bowel Movements 2 3 Laboratory Tests Test 05/28/19 05:25 White Blood Count 7.0 K/UL (4.8-10.8) Red Blood Count 3.74 M/UL (4.20-5.40) L Hemoglobin 13.4 G/DL (12.0-16.0) Hematocrit 41.5 % (37.0-47.0) Mean Corpuscular Volume 111 FL (80-99) H Mean Corpuscular Hemoglobin 35.8 PG (27.0-31.0) H Mean Corpuscular Hemoglobin Concent 32.3 G/DL (32.0-36.0) Red Cell Distribution Width 13.6 % (11.6-14.8) Platelet Count 89 K/UL (150-450) L Mean Platelet Volume 8.9 FL (6.5-10.1) Neutrophils (%) (Auto) % (45.0-75.0) Lymphocytes (%) (Auto) % (20.0-45.0) Monocytes (%) (Auto) % (1.0-10.0) Eosinophils (%) (Auto) % (0.0-3.0) Basophils (%) (Auto) % (0.0-2.0) Differential Total Cells Counted 100 Neutrophils % (Manual) 58 % (45-75) Lymphocytes % (Manual) 31 % (20-45) Monocytes % (Manual) 10 % (1-10) Eosinophils % (Manual) 1 % (0-3) Basophils % (Manual) 0 % (0-2) Band Neutrophils 0 % (0-8) Platelet Estimate Decreased L Platelet Morphology Normal Sodium Level 140 MMOL/L (136-145) Potassium Level 4.0 MMOL/L (3.5-5.1) Chloride Level 109 MMOL/L (98-107) H Carbon Dioxide Level 25 MMOL/L (21-32) Anion Gap 7 mmol/L (5-15) Blood Urea Nitrogen 7 mg/dL (7-18) Creatinine 0.7 MG/DL (0.55-1.30) Estimat Glomerular Filtration Rate > 60 mL/min (>60) Glucose Level 104 MG/DL (74-106) Calcium Level 8.6 MG/DL (8.5-10.1) Phosphorus Level 2.6 MG/DL (2.5-4.9) Magnesium Level 1.4 MG/DL (1.8-2.4) L Total Bilirubin 3.1 MG/DL (0.2-1.0) H Direct Bilirubin 2.0 MG/DL (0.0-0.3) H Aspartate Amino Transf (AST/SGOT) 164 U/L (15-37) H Alanine Aminotransferase (ALT/SGPT) 71 U/L (12-78) Alkaline Phosphatase 229 U/L (46-116) H Total Protein 8.0 G/DL (6.4-8.2) Albumin 2.4 G/DL (3.4-5.0) L Globulin 5.6 g/dL Albumin/Globulin Ratio 0.4 (1.0-2.7) L Height (Feet): 5 Height (Inches): 4.00 Weight (Pounds): 163 General Appearance: WD/WN, no apparent distress, alert, thin Cardiovascular: normal rate Respiratory/Chest: normal breath sounds, no respiratory distress Abdominal Exam: normal bowel sounds, non tender, soft Extremities: normal range of motion, non-tender Cheyenne Ward NP May 28, 2019 12:55
[2019-05-28 16:00] VITALS: BP 132/75
--- NOTE | 2019-05-28 17:48 | General Progress Note ---
Assessment/Plan Problem List: (1) Colitis ICD Codes: K52.9 - Noninfective gastroenteritis and colitis, unspecified SNOMED: 625318427 (2) Cholelithiasis ICD Codes: K80.20 - Calculus of gallbladder without cholecystitis without obstruction SNOMED: 217215089 (3) Marijuana abuse ICD Codes: F12.10 - Cannabis abuse, uncomplicated SNOMED: 43967853 (4) Marijuana abuse ICD Codes: F12.10 - Cannabis abuse, uncomplicated SNOMED: 98095504 (5) Knee pain, chronic ICD Codes: M25.569 - Pain in unspecified knee; G89.29 - Other chronic pain SNOMED: 66392825 (6) Knee pain, chronic ICD Codes: M25.569 - Pain in unspecified knee; G89.29 - Other chronic pain SNOMED: 04167624 (7) Strain of left hip ICD Codes: S76.012A - Strain of muscle, fascia and tendon of left hip, initial encounter SNOMED: 462917035 (8) Strain of left hip ICD Codes: S76.012A - Strain of muscle, fascia and tendon of left hip, initial encounter SNOMED: 880770231 (9) Nail brittleness ICD Codes: L60.3 - Nail dystrophy SNOMED: 56239182 (10) Skin lesion of hand ICD Codes: L98.9 - Disorder of the skin and subcutaneous tissue, unspecified SNOMED: 410412382 (11) Nail brittleness ICD Codes: L60.3 - Nail dystrophy SNOMED: 34173955 (12) Sciatica ICD Codes: M54.30 - Sciatica, unspecified side SNOMED: 12809473 (13) Sciatica ICD Codes: M54.30 - Sciatica, unspecified side SNOMED: 44002640 (14) Methamphetamine abuse ICD Codes: F15.10 - Otherstimulant abuse, uncomplicated SNOMED: 622201302 (15) Substance abuse ICD Codes: F19.10 - Other psychoactive substance abuse, uncomplicated SNOMED: 65704630 (16) Alcohol abuse ICD Codes: F10.10 - Alcohol abuse, uncomplicated SNOMED: 60462677 (17) Abdominal pain ICD Codes: R10.9 - Unspecified abdominal pain SNOMED: 04778917 Qualifiers: Qualified Codes: R10.84 - Generalized abdominal pain (18) Drug-seeking behavior ICD Codes: F19.10 - Other psychoactive substance abuse, uncomplicated SNOMED: 112957532 (19) Alcoholic cirrhosis of liver without ascites ICD Codes: K70.30 - Alcoholic cirrhosis of liver without ascites SNOMED: 164084874 (20) Thrombocytopenia ICD Codes: D69.6 - Thrombocytopenia, unspecified SNOMED: 920198047 Status: stable Assessment/Plan: Kandy Negrete is a 58 yo woman with PMH of alcoholic cirrhosis, polysubstance abuse (EtOH, methamphetamine, marijuana), COPD, and HTN who presented with several days of poor PO intake, N/V, abdominal discomfort and generalized weakness, found with labs notable for platelet 86, no leukocytosis, hypokalemia 2.9, tranaminitis with AST>ALT, and overall unremarkable CT A/P for acute process. Patient also noted with tachycardia, borderline hypertension, and tremors today concerning for alcohol withdraw. #Generalized weakness, suspected 2/2 multiple medical comorbidities, length of stay. Will rule out infection with UA and C diff given symptoms #dysuria- rule out UTI #diarrhea, while off lactulose- check c diff - check UA - check C diff - continue PT/OT - holding lactulose for now #N/V abd pain - Resolved. HIDA negative. #hepatitis C and Etoh cirrhosis, new diagnosis > CT A/P without acute inflammatory or obstructive process, trace ascites, moderately enlarged cirrhotic liver with hypodense nodules throughout likely regenerative nodules, cholelithiasis without obstruction. > MRI limited due to lack of contrast and patient movement: continues to show scattered hypodense lesions which are nonspecific. > Abdominal ultrasound: negative for gallstones. Mild gallbladder wall thickening, probably related to hepatocellular disease, but acalculous cholecystitis possible. Consider HIDA - Patient states does not have a GI doctor outpatient - Appreciate GI consult: Dr. Goldman and PLEATER Sylvia- Lactulose, zofran. Continue to monitor - Ammonia 44 - lactulose, titrate to 3-4 BM per day - Zofran 4mg q6hrs PRN nausea/vomiting -Tylenol for pain control #hepatitis C - discussed with patient diagnosis and need for treatment. Patient agreeable - send for HCV RNA and genotype #Polysubstance abuse, acute EtOH withdraw, mood disorder - Alcohol withdraw protocol - Banana bag x1, thiamine PO daily, folate PO daily, multivitamin PO daily - Discontinue librium taper, - Ativan 0.5gm IV q2hrs PRN withdraw symptoms - Monitor for worsening signs/symptoms of withdraw - Social work consult, patient interested in detox programs - Continue home Abilify and Zoloft #Generalized weakness, could be 2/2 cirrhosis, length of stay, multiple medical problems - PT to evaluate for SNF rehab #Metabolic encephalopathy - Resolved - In setting of acute EtOH withdraw and cirrhosis - Treatment as per above #Sinus tachycardia, hx HTN - tachycardia 2/2 EtOH withdraw - Continue home amlodipine 5mg PO daily #Thrombocytopenia 2/2 cirrhosis - Platelet 86 on admission, likely 2/2 chronic EtOH use/cirrhosis - Continue to monitor - SCDs for DVT ppx Hypophosphatemia -replete hypomagnesemia replete FEN Low sodium diet Full Code Case discussed with RN, physical therapy, and patient. I spent 37 minutes on this encounter, with >50% dedicated to counseling and/or coordination of care. Time of note may not reflect time patient was seen. Subjective Date patient seen: May 28, 2019 Constitutional: Denies: chills, diaphoresis, fever, malaise, weakness, other HEENT: Denies: eye pain, blurred vision, tearing, double vision, ear pain, ear discharge, nose pain, nose congestion, throat pain, throat swelling, mouth pain , mouth swelling, other Cardiovascular: Denies: chest pain, edema, irregular heart rate, lightheadedness, palpitations, syncope, other Respiratory: Denies: cough, orthopnea, shortness of breath, SOB with excertion , SOB at rest, sputum, stridor, wheezing, other Gastrointestinal/Abdominal: Denies: abdomen distended, abdominal pain, black stools, tarry stools, blood in stool, constipated, diarrhea, difficulty swallowing, nausea, poor appetite, poor fluid intake, rectal bleeding, vomiting , other Genitourinary: Denies: burning, discharge, frequency, flank pain, hematuria, incontinence, pain, urgency, other Neurologic/Psychiatric: Denies: anxiety, depressed, emotional problems, headache, numbness, paresthesia, pre-existing deficit, seizure, tingling, tremors, weakness, other Endocrine: Denies: excessive sweating, flushing, intolerance to cold, intolerance to heat, increased hunger, increased thirst, increased urine, unexplained weight gain, unexplained weight loss, other Hematologic/Lymphatic: Denies: anemia, easy bleeding, easy bruising, other Allergies: Coded Allergies: No Known Allergies (Unverified , 12/15/12) Subjective No acute events overnight per nursing Fatigue: patient still feels very fatigued, has difficulty getting out of bed. Urinates herself before she can make it to the bathroom. Feels very weak, generalized. No focal deficits. Diarrhea: Continues even while off lactulose, no abdominal pain, nausea, vomiting, fevers, or chills. Abdominal pain: Resolving. post-prandial. HIDA scan negative Dysuria/frequency: x 1 day, no CVA tenderness, no fevers, or nausea Objective Last 24 Hour Vital Signs Date Time Temp Pulse Resp B/P (MAP) Pulse Ox O2 Delivery O2 Flow Rate FiO2 05/28/19 16:00 97.9 79 18 132/75 (94) 98 05/28/19 12:00 97.8 81 17 127/70 (89) 96 05/28/19 09:40 87 138/76 05/28/19 09:00 Nasal Cannula 2.0 05/28/19 08:00 98.3 87 18 138/76 (96) 94 05/28/19 07:35 95 Room Air 21 05/28/19 04:00 98.0 87 20 128/85 (99) 94 05/28/19 00:00 98.0 89 24 125/64 (84) 94 05/27/19 21:00 Room Air 05/27/19 20:15 96 Room Air 21 05/27/19 20:00 98.1 88 24 141/70 (93) 99 Intake and Output 05/27/19 05/28/19 18:59 06:59 Intake Total 1600 ml 200 ml Balance 1600 ml 200 ml Intake Oral 1600 ml Other 200 ml # Voids 4 2 # Bowel Movements 2 3 Laboratory Tests 05/28/19 05:25: White Blood Count 7.0, Red Blood Count 3.74L, Hemoglobin 13.4, Hematocrit 41.5, Mean Corpuscular Volume 111H, Mean Corpuscular Hemoglobin 35.8H, Mean Corpuscular Hemoglobin Concent 32.3, Red Cell Distribution Width 13.6, Platelet Count 89L, Mean Platelet Volume 8.9, Neutrophils (%) (Auto) , Lymphocytes (%) ( Auto) , Monocytes (%) (Auto) , Eosinophils (%) (Auto) , Basophils (%) (Auto) , Differential Total Cells Counted 100, Neutrophils % (Manual) 58, Lymphocytes % ( Manual) 31, Monocytes % (Manual) 10, Eosinophils % (Manual) 1, Basophils % ( Manual) 0, Band Neutrophils 0, Platelet Estimate DecreasedL, Platelet Morphology Normal, Sodium Level 140, Potassium Level 4.0, Chloride Level 109H, Carbon Dioxide Level 25, Anion Gap 7, Blood Urea Nitrogen 7, Creatinine 0.7, Estimat Glomerular Filtration Rate > 60, Glucose Level 104, Calcium Level 8.6, Phosphorus Level 2.6, Magnesium Level 1.4L, Total Bilirubin 3.1H, Direct Bilirubin 2.0H, Aspartate Amino Transf (AST/SGOT) 164H, Alanine Aminotransferase (ALT/SGPT) 71, Alkaline Phosphatase 229H, Total Protein 8.0, Albumin 2.4L, Globulin 5.6, Albumin/Globulin Ratio 0.4L Height (Feet): 5 Height (Inches): 4.00 Weight (Pounds): 163 General Appearance: WD/WN, no apparent distress, alert EENT: PERRL/EOMI, normal ENT inspection Neck: non-tender, normal alignment, supple Cardiovascular: normal peripheral pulses, normal rate, regular rhythm Respiratory/Chest: chest wall non-tender, lungs clear, normal breath sounds Abdomen: normal bowel sounds, non tender, soft Extremities: normal range of motion, non-tender Neurologic: 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 May 28, 2019 17:48
--- NOTE | 2019-05-28 19:05 | NUR ---
HAND-OFF: Report given to LY Jasso.
--- NOTE | 2019-05-28 19:10 | NUR ---
NURSE NOTES: RECEIVED PT FROM LY ALVAREZ. PT IS ASLEEP, ON ROOM AIR, NO ACUTE DISTRESS NOTED. IV ON RIGHT HAND 22G IS INTACT AND PATENT. COMMODE NOTED AT BEDSIDE. BED IS LOCKED AND LOW, BED ALARMS ACTIVE, SIDE RAILS UP X2, AND CALL LIGHT IS WITHIN REACH. WILL CONTINUE TO MONITOR.
[2019-05-28 20:00] VITALS: BP 128/62
--- NOTE | 2019-05-28 20:21 | NUR ---
DRAFTING INSTRUCTOR: REVIEW SI: ALCOHOLIC CIRRHOSIS . RECTAL BLEED T 97.8 HR 79 RR 18 BP 127/70 SAT 96% NC/2L PLT CT 89 T BILI 3.1 D BILI 2.0 IS: ATIVAN IV Q4HR PRN LACTULOSE PO QD THIAMINE PO QD FOLIC ACID PO QD NORVASC PO QD PT EVAL MED/SURG STATUS STATUS DCP: PATIENT IS FROM HOME
--- NOTE | 2019-05-28 21:00 | NUR ---
NURSE NOTES: PT REFUSED GLUCOSE CHECK AND NOVOLOG. PT STATED THAT HE DOES NOT HAVE DIABETES AND DOESN'T NEED IT. PT ALSO REFUSED HEPARIN. REINFORCED TEACHING. STILL REFUSED. Addendum: 05/29/19 at 0411 by Louisa Castaneda RN DISREGARD. Charted on wrong patient.
--- NOTE | 2019-05-28 22:00 | NUR ---
NURSE NOTES: CHANGED WOUND DRESSINGS ON SACRAL. Addendum: 05/29/19 at 0412 by Louisa Castaneda RN DISREGARD. Charted on wrong patient.
[2019-05-29] VITALS: BP 148/84
[2019-05-29] MEDS: LORazepam Inj 2mg/ml 1ml IV PRN ×4 (00:39→21:08)
[2019-05-29 04:00] VITALS: BP_SYST 129; BP_SYST 145; BP_DIAS 74; BP_DIAS 90
[2019-05-29 06:53] LABS: ANION GAP 6 mmol/L (5-15); BLOOD UREA NITROGEN 8 mg/dL (7-18); CALCIUM 8.3 MG/DL (8.5-10.1); CARBON DIOXIDE 25 MMOL/L (21-32); CHLORIDE 110 MMOL/L (98-107); CREATININE 0.7 MG/DL (0.55-1.30); PHOSPHORUS 3.2 MG/DL (2.5-4.9); POTASSIUM 3.8 MMOL/L (3.5-5.1); SODIUM 140 MMOL/L (136-145)
[2019-05-29 07:12] LABS: HEMATOCRIT 36.5 % (37.0-47.0); HEMOGLOBIN 11.8 G/DL (12.0-16.0); MEAN CORPUSCULAR VOLUME 110 FL (80-99); PLATELET COUNT 72 K/UL (150-450); RED BLOOD COUNT 3.33 M/UL (4.20-5.40); RED CELL DISTRIBUTION WIDTH 13.7 % (11.6-14.8); WHITE BLOOD COUNT 5.3 K/UL (4.8-10.8)
--- NOTE | 2019-05-29 07:23 | NUR ---
NURSE NOTES: received report from Louisa.RN. patient in bed.sleeping. no respiratory distress noted. no facial grimacing noted. IV on RH 24. intact. bedside commode. seizure precaution side rails padded. suction available. bed in the lowest position and locked.call light within reach. will continue to provide plan of care.
--- NOTE | 2019-05-29 07:39 | NUR ---
HAND-OFF: Report given to LY Moon.
[2019-05-29 08:00] VITALS: BP 136/76
[2019-05-29] MEDS: Thiamine 100mg tab ORAL SCH (08:24)
[2019-05-29] MEDS: Lactulose 20gm/30ml UDC ORAL SCH (08:24)
[2019-05-29] MEDS: Sertraline 100mg tab ORAL SCH (08:24)
[2019-05-29] MEDS: ARIPiprazole 2mg tab ORAL SCH (08:24)
[2019-05-29] MEDS: Docusate 100mg cap ORAL SCH ×2 (08:24→21:08)
[2019-05-29 12:00] VITALS: BP 138/84
[2019-05-29 12:47] LABS: APPEARANCE,URINE CLEAR; BILIRUBIN, URINE 2+ (NEGATIVE); COLOR,URINE BROWN; GLUCOSE, URINE (UA) NEGATIVE (NEGATIVE); KETONES,URINE NEGATIVE (NEGATIVE); LEUKOCYTE ESTERASE ,URINE 2+ (NEGATIVE); NITRITE,URINE NEGATIVE (NEGATIVE); PH,URINE 6.5 (4.5-8.0); PROTEIN,URINE NEGATIVE (NEGATIVE); UROBILINOGEN,URINE 12 MG/DL (0.0-1.0)
--- NOTE | 2019-05-29 13:40 | General Progress Note ---
Assessment/Plan Problem List: (1) Colitis ICD Codes: K52.9 - Noninfective gastroenteritis and colitis, unspecified SNOMED: 072132272 (2) Cholelithiasis ICD Codes: K80.20 - Calculus of gallbladder without cholecystitis without obstruction SNOMED: 759040734 (3) Marijuana abuse ICD Codes: F12.10 - Cannabis abuse, uncomplicated SNOMED: 33494125 (4) Marijuana abuse ICD Codes: F12.10 - Cannabis abuse, uncomplicated SNOMED: 38043569 (5) Knee pain, chronic ICD Codes: M25.569 - Pain in unspecified knee; G89.29 - Other chronic pain SNOMED: 73469796 (6) Knee pain, chronic ICD Codes: M25.569 - Pain in unspecified knee; G89.29 - Other chronic pain SNOMED: 90300040 (7) Strain of left hip ICD Codes: S76.012A - Strain of muscle, fascia and tendon of left hip, initial encounter SNOMED: 509459263 (8) Strain of left hip ICD Codes: S76.012A - Strain of muscle, fascia and tendon of left hip, initial encounter SNOMED: 520639012 (9) Nail brittleness ICD Codes: L60.3 - Nail dystrophy SNOMED: 29732016 (10) Skin lesion of hand ICD Codes: L98.9 - Disorder of the skin and subcutaneous tissue, unspecified SNOMED: 718209039 (11) Nail brittleness ICD Codes: L60.3 - Nail dystrophy SNOMED: 82236737 (12) Sciatica ICD Codes: M54.30 - Sciatica, unspecified side SNOMED: 38971035 (13) Sciatica ICD Codes: M54.30 - Sciatica, unspecified side SNOMED: 31764930 (14) Methamphetamine abuse ICD Codes: F15.10 - Otherstimulant abuse, uncomplicated SNOMED: 998410246 (15) Substance abuse ICD Codes: F19.10 - Other psychoactive substance abuse, uncomplicated SNOMED: 58262324 (16) Alcohol abuse ICD Codes: F10.10 - Alcohol abuse, uncomplicated SNOMED: 92501666 (17) Abdominal pain ICD Codes: R10.9 - Unspecified abdominal pain SNOMED: 54781777 Qualifiers: Qualified Codes: R10.84 - Generalized abdominal pain (18) Drug-seeking behavior ICD Codes: F19.10 - Other psychoactive substance abuse, uncomplicated SNOMED: 536000713 (19) Alcoholic cirrhosis of liver without ascites ICD Codes: K70.30 - Alcoholic cirrhosis of liver without ascites SNOMED: 637765860 (20) Thrombocytopenia ICD Codes: D69.6 - Thrombocytopenia, unspecified SNOMED: 479585507 Status: stable Assessment/Plan: Kandy Negrete is a 58 yo woman with PMH of alcoholic cirrhosis, polysubstance abuse (EtOH, methamphetamine, marijuana), COPD, and HTN who presented with several days of poor PO intake, N/V, abdominal discomfort and generalized weakness, found with labs notable for platelet 86, no leukocytosis, hypokalemia 2.9, tranaminitis with AST>ALT, and overall unremarkable CT A/P for acute process. Patient also noted with tachycardia, borderline hypertension, and tremors today concerning for alcohol withdraw. #Generalized weakness, suspected 2/2 multiple medical comorbidities, length of stay. Will rule out infection with UA and C diff given symptoms - IMPROVING #dysuria- rule out UTI #diarrhea, while off lactulose- check c diff - check UA - check C diff - continue PT/OT - holding lactulose for now - will need to resume lactulose on discharge - 1L normal saline today - PT to evaluate tomorrow for home with PT. currently not cleared. No SNF accepted yet #N/V abd pain - Resolved. HIDA negative. #hepatitis C and Etoh cirrhosis, new diagnosis > CT A/P without acute inflammatory or obstructive process, trace ascites, moderately enlarged cirrhotic liver with hypodense nodules throughout likely regenerative nodules, cholelithiasis without obstruction. > MRI limited due to lack of contrast and patient movement: continues to show scattered hypodense lesions which are nonspecific. > Abdominal ultrasound: negative for gallstones. Mild gallbladder wall thickening, probably related to hepatocellular disease, but acalculous cholecystitis possible. Consider HIDA - Patient states does not have a GI doctor outpatient - Appreciate GI consult: Dr. Goldman and LICENSED PRACTICAL NURSE INSTRUCTOR Sylvia- Lactulose, zofran. Continue to monitor - Ammonia 44 - lactulose, titrate to 3-4 BM per day - Zofran 4mg q6hrs PRN nausea/vomiting -Tylenol for pain control #hepatitis C - discussed with patient diagnosis and need for treatment. Patient agreeable - send for HCV RNA and genotype #Polysubstance abuse, acute EtOH withdraw, mood disorder - Alcohol withdraw protocol - Banana bag x1, thiamine PO daily, folate PO daily, multivitamin PO daily - Discontinue librium taper, - Ativan 0.5gm IV q2hrs PRN withdraw symptoms - Monitor for worsening signs/symptoms of withdraw - Social work consult, patient interested in detox programs - Continue home Abilify and Zoloft #Generalized weakness, could be 2/2 cirrhosis, length of stay, multiple medical problems - PT to evaluate for SNF rehab #Metabolic encephalopathy - Resolved - In setting of acute EtOH withdraw and cirrhosis - Treatment as per above #Sinus tachycardia, hx HTN - tachycardia 2/2 EtOH withdraw - Continue home amlodipine 5mg PO daily #Thrombocytopenia 2/2 cirrhosis - Platelet 86 on admission, likely 2/2 chronic EtOH use/cirrhosis - Continue to monitor - SCDs for DVT ppx Hypophosphatemia -replete hypomagnesemia replete FEN Low sodium diet Full Code Case discussed with RN, physical therapy, and patient. I spent 36 minutes on this encounter, with >50% dedicated to counseling and/or coordination of care. Time of note may not reflect time patient was seen. Subjective Date patient seen: May 29, 2019 Constitutional: Denies: chills, diaphoresis, fever, malaise, weakness, other HEENT: Denies: eye pain, blurred vision, tearing, double vision, ear pain, ear discharge, nose pain, nose congestion, throat pain, throat swelling, mouth pain , mouth swelling, other Cardiovascular: Denies: chest pain, edema, irregular heart rate, lightheadedness, palpitations, syncope, other Respiratory: Denies: cough, orthopnea, shortness of breath, SOB with excertion , SOB at rest, sputum, stridor, wheezing, other Gastrointestinal/Abdominal: Denies: abdomen distended, abdominal pain, black stools, tarry stools, blood in stool, constipated, diarrhea, difficulty swallowing, nausea, poor appetite, poor fluid intake, rectal bleeding, vomiting , other Genitourinary: Denies: burning, discharge, frequency, flank pain, hematuria, incontinence, pain, urgency, other Neurologic/Psychiatric: Denies: anxiety, depressed, emotional problems, headache, numbness, paresthesia, pre-existing deficit, seizure, tingling, tremors, weakness, other Endocrine: Denies: excessive sweating, flushing, intolerance to cold, intolerance to heat, increased hunger, increased thirst, increased urine, unexplained weight gain, unexplained weight loss, other Hematologic/Lymphatic: Denies: anemia, easy bleeding, easy bruising, other Allergies: Coded Allergies: No Known Allergies (Unverified , 12/15/12) Subjective No acute events overnight per nursing Fatigue: Much improved. patient feels much stronger today. Able to walk with PT with FWW but unsteady per PT. Recommendation was for SNF rehab but PT considering home with PT but would like to continue to evaluate.No focal deficits. Diarrhea: Continues even while off lactulose, no abdominal pain, nausea, vomiting, fevers, or chills. C diff still uncollected Abdominal pain: Resolving. post-prandial. HIDA scan negative Dysuria/frequency: x 2 day, no CVA tenderness, no fevers, or nausea. Unable to collect sterile UA sampe. Patient agreeable to straight cath Objective Last 24 Hour Vital Signs Date Time Temp Pulse Resp B/P (MAP) Pulse Ox O2 Delivery O2 Flow Rate FiO2 05/29/19 12:00 98.4 76 17 138/84 (102) 97 05/29/19 09:00 Room Air 05/29/19 08:24 79 136/76 05/29/19 08:00 98.0 79 17 136/76 (96) 96 05/29/19 04:00 97.8 82 18 129/74 (92) 98 05/29/19 00:00 98.4 84 18 148/84 (105) 96 05/28/19 21:00 Room Air 05/28/19 20:00 97.8 79 20 128/62 (84) 97 05/28/19 16:00 97.9 79 18 132/75 (94) 98 Intake and Output 05/28/19 05/29/19 19:00 07:00 Intake Total 900 ml Balance 900 ml Other 900 ml # Voids 3 # Bowel Movements 1 Laboratory Tests 05/29/19 05:40: White Blood Count 5.3, Red Blood Count 3.33L, Hemoglobin 11.8L, Hematocrit 36.5L , Mean Corpuscular Volume 110H, Mean Corpuscular Hemoglobin 35.6H, Mean Corpuscular Hemoglobin Concent 32.4, Red Cell Distribution Width 13.7, Platelet Count 72L, Mean Platelet Volume 10.3H, Neutrophils (%) (Auto) , Lymphocytes (%) (Auto) , Monocytes (%) (Auto) , Eosinophils (%) (Auto) , Basophils (%) (Auto) , Differential Total Cells Counted 100, Neutrophils % (Manual) 63, Lymphocytes % ( Manual) 25, Monocytes % (Manual) 11H, Eosinophils % (Manual) 1, Basophils % ( Manual) 0, Band Neutrophils 0, Platelet Estimate DecreasedL, Platelet Morphology Normal, Macrocytosis 1+, Sodium Level 140, Potassium Level 3.8, Chloride Level 110H, Carbon Dioxide Level 25, Anion Gap 6, Blood Urea Nitrogen 8 , Creatinine 0.7, Estimat Glomerular Filtration Rate > 60, Glucose Level 98, Calcium Level 8.3L, Phosphorus Level 3.2, Magnesium Level 1.6L 05/29/19 12:32: Urine Color Brown, Urine Appearance Clear, Urine pH 6.5, Urine Specific [place] 1.010, Urine Protein Negative, Urine Glucose (UA) Negative, Urine Ketones Negative, Urine Blood Negative, Urine Nitrite Negative, Urine Bilirubin 2+H, Urine Ictotest Positive, Urine Urobilinogen 12H, Urine Leukocyte Esterase 2+H, Urine RBC 0, Urine WBC 2-4, Urine Squamous Epithelial Cells Occasional, Urine Bacteria Occasional Height (Feet): 5 Height (Inches): 4.00 Weight (Pounds): 163 General Appearance: WD/WN, no apparent distress, alert EENT: PERRL/EOMI, normal ENT inspection Neck: non-tender, normal alignment, supple Cardiovascular: normal peripheral pulses, normal rate, regular rhythm, no JVD Respiratory/Chest: chest wall non-tender, lungs clear, normal breath sounds Abdomen: normal bowel sounds, non tender, soft, no organomegaly, no mass Extremities: normal range of motion, non-tender 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 May 29, 2019 13:39
[2019-05-29 16:00] VITALS: BP 129/73
--- NOTE | 2019-05-29 17:39 | NUR ---
CASE MANAGEMENT: REVIEW 05/29/2019 SI:ETOH WITHDRAWAL. METABOLIC ENCEPHALOPATHY. T 97.6 HR 78 RR 18 B/P 129/73 SATS 97% ON RA LABS: CL 110 CA 8.3 MG 1.6 IS:NORVASC PO QD ABILIFY PO QD ZOLOFT PO QD THIAMINE PO QD MED/SURG
--- NOTE | 2019-05-29 19:20 | NUR ---
NURSE NOTES: Received pt resting in bed. AAO x 4, on room air, ambulatory. Bedside commode at bedside. IV side intact and running NS 100cc/hr. Seizure precaution maintained. Bed locked, lowest position, alarm on, padded side rail up x 2, call light within reach. Will continue to monitor.
--- NOTE | 2019-05-29 19:25 | NUR ---
HAND-OFF: Report given to LY Partida.
[2019-05-29 20:00] VITALS: BP 118/57
[2019-05-29] MEDS: HYDROcodone/Acetamin 10/325 tab ORAL PRN (20:29)
[2019-05-29] MEDS ORDERED: Tubing IV Secondary IV ONE (22:49)
[2019-05-29] MEDS ORDERED: NS 275ml ONE (22:49)
[2019-05-30] VITALS (7 sets, daily range): BP systolic 116–136; BP diastolic 62–71
[2019-05-30] MEDS: LORazepam Inj 2mg/ml 1ml IV PRN ×4 (01:53→20:11)
[2019-05-30 06:28] LABS: HEMATOCRIT 37.4 % (37.0-47.0); HEMOGLOBIN 12.2 G/DL (12.0-16.0); MEAN CORPUSCULAR VOLUME 111 FL (80-99); PLATELET COUNT 88 K/UL (150-450); RED BLOOD COUNT 3.38 M/UL (4.20-5.40); RED CELL DISTRIBUTION WIDTH 13.8 % (11.6-14.8); WHITE BLOOD COUNT 5.5 K/UL (4.8-10.8)
[2019-05-30 06:35] LABS: ANION GAP 5 mmol/L (5-15); BLOOD UREA NITROGEN 8 mg/dL (7-18); CALCIUM 8.3 MG/DL (8.5-10.1); CARBON DIOXIDE 25 MMOL/L (21-32); CHLORIDE 110 MMOL/L (98-107); CREATININE 0.7 MG/DL (0.55-1.30); SODIUM 140 MMOL/L (136-145)
--- NOTE | 2019-05-30 07:04 | NUR ---
HAND-OFF: Report given to LY Moon.
--- NOTE | 2019-05-30 07:28 | NUR ---
NURSE NOTES: received report from LY Partida. patient in bed. alert. oriented. forgetful at times. no respiratory distress noted. no c/o pain at this time. IV on RT thumb intact. saline lock. fall risk. patient wearing yellow socks. bed in the lowest position and locked. call light within reach. will continue to provide plan of care.
[2019-05-30] MEDS: Sertraline 100mg tab ORAL SCH (09:35)
[2019-05-30] MEDS: Thiamine 100mg tab ORAL SCH (09:35)
[2019-05-30] MEDS: Lactulose 20gm/30ml UDC ORAL SCH (09:35)
[2019-05-30] MEDS: Docusate 100mg cap ORAL SCH ×4 (09:36→20:18)
[2019-05-30] MEDS: ARIPiprazole 2mg tab ORAL SCH (09:36)
--- NOTE | 2019-05-30 10:13 | NUR ---
CASE MANAGEMENT: REVIEW 05/30/2019 SI:ETOH WITHDRAWAL. METABOLIC ENCEPHALOPATHY. T 98.1 HR 77 RR 20 B/P 166/66 SATS 100% ON RA CL 110 CA 8.3 IS:NORVASC PO QD ABILIFY PO QD ZOLOFT PO QD THIAMINE PO QD MED/SURG
--- NOTE | 2019-05-30 10:36 | NUR ---
NURSE NOTES: RN wasted atvian 2mg/1ml having witness Carey,RN d/t IV access not working.
[2019-05-30] MEDS ORDERED: Guaifenesin/DM 10ml syrup ORAL PRN (11:15)
--- NOTE | 2019-05-30 11:17 | NUR ---
NURSE NOTES: patient MG level was 1.6 on 05/29/19. patient had episode of diarrhea on 05/28/19and has had solid stool since 05/29/19. notified and received order start magnesium sulfate 1gm x 2bags, DC C-diff toxin lab. resumed breathing tx with Duoneb 3ml PRN Q4hrs per patient request. order noted and carried out.
[2019-05-30] MEDS ORDERED: Albuterol/Ipratropium 3ml neb HHN PRN (11:30)
--- NOTE | 2019-05-30 12:08 | General Progress Note ---
Assessment/Plan Problem List: (1) Colitis ICD Codes: K52.9 - Noninfective gastroenteritis and colitis, unspecified SNOMED: 606518263 (2) Cholelithiasis ICD Codes: K80.20 - Calculus of gallbladder without cholecystitis without obstruction SNOMED: 522400259 (3) Marijuana abuse ICD Codes: F12.10 - Cannabis abuse, uncomplicated SNOMED: 78525589 (4) Marijuana abuse ICD Codes: F12.10 - Cannabis abuse, uncomplicated SNOMED: 57293879 (5) Knee pain, chronic ICD Codes: M25.569 - Pain in unspecified knee; G89.29 - Other chronic pain SNOMED: 44819520 (6) Knee pain, chronic ICD Codes: M25.569 - Pain in unspecified knee; G89.29 - Other chronic pain SNOMED: 21085389 (7) Strain of left hip ICD Codes: S76.012A - Strain of muscle, fascia and tendon of left hip, initial encounter SNOMED: 686241943 (8) Strain of left hip ICD Codes: S76.012A - Strain of muscle, fascia and tendon of left hip, initial encounter SNOMED: 384872701 (9) Nail brittleness ICD Codes: L60.3 - Nail dystrophy SNOMED: 79613848 (10) Skin lesion of hand ICD Codes: L98.9 - Disorder of the skin and subcutaneous tissue, unspecified SNOMED: 174400271 (11) Nail brittleness ICD Codes: L60.3 - Nail dystrophy SNOMED: 16241768 (12) Sciatica ICD Codes: M54.30 - Sciatica, unspecified side SNOMED: 58739926 (13) Sciatica ICD Codes: M54.30 - Sciatica, unspecified side SNOMED: 80247496 (14) Methamphetamine abuse ICD Codes: F15.10 - Otherstimulant abuse, uncomplicated SNOMED: 847319617 (15) Substance abuse ICD Codes: F19.10 - Other psychoactive substance abuse, uncomplicated SNOMED: 31472078 (16) Alcohol abuse ICD Codes: F10.10 - Alcohol abuse, uncomplicated SNOMED: 35826203 (17) Abdominal pain ICD Codes: R10.9 - Unspecified abdominal pain SNOMED: 11595417 Qualifiers: Qualified Codes: R10.84 - Generalized abdominal pain (18) Drug-seeking behavior ICD Codes: F19.10 - Other psychoactive substance abuse, uncomplicated SNOMED: 965325922 (19) Alcoholic cirrhosis of liver without ascites ICD Codes: K70.30 - Alcoholic cirrhosis of liver without ascites SNOMED: 970383693 (20) Thrombocytopenia ICD Codes: D69.6 - Thrombocytopenia, unspecified SNOMED: 150656940 (21) Tobacco abuse counseling ICD Codes: Z71.6 - Tobacco abuse counseling SNOMED: 819003146, 402359725, 866354330 (22) Tobacco abuse ICD Codes: Z72.0 - Tobacco use SNOMED: 744749342 (23) COPD (chronic obstructive pulmonary disease) ICD Codes: J44.9 - Chronic obstructive pulmonary disease, unspecified SNOMED: 89303763 (24) Chronic cough ICD Codes: R05 - Cough SNOMED: 18187833 Status: stable Assessment/Plan: Kandy Negrete is a 58 yo woman with PMH of alcoholic cirrhosis, polysubstance abuse (EtOH, methamphetamine, marijuana), COPD, and HTN who presented with several days of poor PO intake, N/V, abdominal discomfort and generalized weakness, found with labs notable for platelet 86, no leukocytosis, hypokalemia 2.9, tranaminitis with AST>ALT, and overall unremarkable CT A/P for acute process. Patient also noted with tachycardia, borderline hypertension, and tremors today concerning for alcohol withdraw. #Generalized weakness, suspected 2/2 multiple medical comorbidities, length of stay. - IMPROVING #dysuria- rule out UTI - UA negative. Symptoms resolved #diarrhea, while off lactulose- resolved - continue PT/OT - PT to evaluate tomorrow for home with PT. currently not cleared. No SNF accepted yet #N/V abd pain - Resolved. HIDA negative. #hepatitis C and Etoh cirrhosis, new diagnosis > CT A/P without acute inflammatory or obstructive process, trace ascites, moderately enlarged cirrhotic liver with hypodense nodules throughout likely regenerative nodules, cholelithiasis without obstruction. > MRI limited due to lack of contrast and patient movement: continues to show scattered hypodense lesions which are nonspecific. > Abdominal ultrasound: negative for gallstones. Mild gallbladder wall thickening, probably related to hepatocellular disease, but acalculous cholecystitis possible. Consider HIDA - Patient states does not have a GI doctor outpatient - Appreciate GI consult: Dr. Goldman and RENA Ward- Lactulose, zofran. Continue to monitor - Ammonia 44 - lactulose, titrate to 3-4 BM per day - Zofran 4mg q6hrs PRN nausea/vomiting -Tylenol for pain control - counseled patient on EtOH cessation. Planning to join AA again after discharge. #Tobacco dependence - smoking 2PPD - start nicotine patch and continue on discharge #Suspect COPD, due to many years of smoking - will need outpatient PFTs to confirm - Start DuoNebs q6hr - Start spiriva 18mcg 2puffs daily #hepatitis C - discussed with patient diagnosis and need for treatment. Patient agreeable - send for HCV RNA and genotype #Polysubstance abuse, acute EtOH withdraw, mood disorder - Alcohol withdraw protocol - Banana bag x1, thiamine PO daily, folate PO daily, multivitamin PO daily - s/p librium taper, - Ativan 0.5gm IV q2hrs PRN withdraw symptoms - Monitor for worsening signs/symptoms of withdraw - Social work consult, patient interested in detox programs - Continue home Abilify and Zoloft #Generalized weakness, could be 2/2 cirrhosis, length of stay, multiple medical problems - PT to evaluate for SNF rehab #Metabolic encephalopathy - Resolved - In setting of acute EtOH withdraw and cirrhosis - Treatment as per above #Sinus tachycardia, hx HTN - tachycardia 2/2 EtOH withdraw - Continue home amlodipine 5mg PO daily #Thrombocytopenia 2/2 cirrhosis - Platelet 86 on admission, likely 2/2 chronic EtOH use/cirrhosis - Continue to monitor - SCDs for DVT ppx Hypophosphatemia -replete hypomagnesemia replete FEN Low sodium diet Full Code Dispo: SNF for rehab. Though pending PT therapy re-evaluation for home with home PT/home health. currently patient unable to care for herself at home and has no assistance. Case discussed with RN, physical therapy, and patient. I spent 37 minutes on this encounter, with >50% dedicated to counseling and/or coordination of care. Time of note may not reflect time patient was seen. Subjective Date patient seen: May 30, 2019 Constitutional: Denies: chills, diaphoresis, fever, malaise, weakness, other HEENT: Denies: eye pain, blurred vision, tearing, double vision, ear pain, ear discharge, nose pain, nose congestion, throat pain, throat swelling, mouth pain , mouth swelling, other Cardiovascular: Denies: chest pain, edema, irregular heart rate, lightheadedness, palpitations, syncope, other Respiratory: Denies: cough, orthopnea, shortness of breath, SOB with excertion , SOB at rest, sputum, stridor, wheezing, other Gastrointestinal/Abdominal: Denies: abdomen distended, abdominal pain, black stools, tarry stools, blood in stool, constipated, diarrhea, difficulty swallowing, nausea, poor appetite, poor fluid intake, rectal bleeding, vomiting , other Genitourinary: Denies: burning, discharge, frequency, flank pain, hematuria, incontinence, pain, urgency, other Neurologic/Psychiatric: Denies: anxiety, depressed, emotional problems, headache, numbness, paresthesia, pre-existing deficit, seizure, tingling, tremors, weakness, other Endocrine: Denies: excessive sweating, flushing, intolerance to cold, intolerance to heat, increased hunger, increased thirst, increased urine, unexplained weight gain, unexplained weight loss, other Hematologic/Lymphatic: Denies: anemia, easy bleeding, easy bruising, other Allergies: Coded Allergies: No Known Allergies (Unverified , 12/15/12) Subjective No acute events overnight per nursing Fatigue: Much improved. Continues to get stronger every day. But still unable to move around by herself. Continuing with PT. PT still recommending SNF. Diarrhea: Has now resolved. Formed bowel movements. Dysuria/frequency: Resolved. UA negative. no CVA tenderness, no fevers, or nausea. Chronic Bronchitis/COPD: Has chronic cough. Intermittent SOB. Uses inhaler at home. Is not on a long actingmedication for COPD. Would like to continue getting breathing treatments in hospital. Continues to smoke 2PPD. Would be interested in nicotine patch. Objective Last 24 Hour Vital Signs Date Time Temp Pulse Resp B/P (MAP) Pulse Ox O2 Delivery O2 Flow Rate FiO2 05/30/19 09:35 77 116/66 05/30/19 09:00 Room Air 05/30/19 08:00 98.1 77 20 116/66 (83) 100 05/30/19 04:00 97.5 74 20 120/69 (86) 96 05/30/19 00:00 97.7 76 18 124/71 (88) 96 05/29/19 21:00 Room Air 05/29/19 20:00 97.9 77 18 118/57 (77) 97 05/29/19 16:00 97.6 78 18 129/73 (91) 97 Intake and Output 05/29/19 05/30/19 19:00 07:00 Intake Total 1400 ml 600 ml Balance 1400 ml 600 ml IV Total 500 ml Other 900 ml 600 ml # Voids 5 Laboratory Tests 05/29/19 12:32: Urine Color Brown, Urine Appearance Clear, Urine pH 6.5, Urine Specific [place] 1.010, Urine Protein Negative, Urine Glucose (UA) Negative, Urine Ketones Negative, Urine Blood Negative, Urine Nitrite Negative, Urine Bilirubin 2+H, Urine Ictotest Positive, Urine Urobilinogen 12H, Urine Leukocyte Esterase 2+H, Urine RBC 0, Urine WBC 2-4, Urine Squamous Epithelial Cells Occasional, Urine Bacteria Occasional 05/30/19 05:45: White Blood Count 5.5, Red Blood Count 3.38L, Hemoglobin 12.2, Hematocrit 37.4, Mean Corpuscular Volume 111H, Mean Corpuscular Hemoglobin 36.2H, Mean Corpuscular Hemoglobin Concent 32.7, Red Cell Distribution Width 13.8, Platelet Count 88L, Mean Platelet Volume 9.8, Neutrophils (%) (Auto) , Lymphocytes (%) ( Auto) , Monocytes (%) (Auto) , Eosinophils (%) (Auto) , Basophils (%) (Auto) , Differential Total Cells Counted 100, Neutrophils % (Manual) 58, Lymphocytes % ( Manual) 33, Monocytes % (Manual) 7, Eosinophils % (Manual) 2, Basophils % ( Manual) 0, Band Neutrophils 0, Platelet Estimate DecreasedL, Platelet Morphology Normal, Macrocytosis 2+, Sodium Level 140, Potassium Level 4.0, Chloride Level 110H, Carbon Dioxide Level 25, Anion Gap 5, Blood Urea Nitrogen 8 , Creatinine 0.7, Estimat Glomerular Filtration Rate > 60, Glucose Level 92, Calcium Level 8.3L Height (Feet): 5 Height (Inches): 4.00 Weight (Pounds): 163 General Appearance: WD/WN, no apparent distress, alert EENT: PERRL/EOMI, normal ENT inspection Neck: non-tender, normal alignment, supple Cardiovascular: normal peripheral pulses, normal rate, no JVD Respiratory/Chest: chest wall non-tender, other - coarse breath sounds which clears with coughing Abdomen: normal bowel sounds, non tender, soft, no organomegaly, no mass Extremities: other - no LE edema bialterally Skin: normal pigmentation, warm/dry Rubin Oneal D.O. May 30, 2019 12:08
[2019-05-30] MEDS ORDERED: HYDROcodone/Acetamin 5/325 tab ORAL PRN (13:00)
[2019-05-30] MEDS: Albuterol/Ipratropium 3ml neb HHN SCH ×2 (15:32→19:47)
--- NOTE | 2019-05-30 19:16 | NUR ---
HAND-OFF: Report given to LY Partida.
--- NOTE | 2019-05-30 19:20 | NUR ---
NURSE NOTES: Received pt resting in bed. AAO x 4, on room air, ambulatory. Bedside commode at bedside. IV side intact and patent. Seizure precaution and fall precaution maintained. Bed locked, lowest position, alarm on, padded side rail up x 2, call light within reach. Will continue to monitor.
[2019-05-31] MEDS: Albuterol/Ipratropium 3ml neb HHN SCH ×4 (00:55→19:33)
[2019-05-31] MEDS: LORazepam Inj 2mg/ml 1ml IV PRN ×6 (02:14→22:53)
[2019-05-31 04:00] VITALS: BP 134/76
--- NOTE | 2019-05-31 07:37 | NUR ---
HAND-OFF: Report given to LY Segura.
[2019-05-31 07:40] LABS: ALANINE AMINOTRANSFERASE 88 U/L (12-78); ALBUMIN 2.3 G/DL (3.4-5.0); ALBUMIN/GLOBULIN RATIO 0.4 (1.0-2.7); ALKALINE PHOSPHATASE 203 U/L (46-116); ANION GAP 7 mmol/L (5-15); ASPARTATE AMINO TRANSFERASE 181 U/L (15-37); BILIRUBIN,TOTAL 3.1 MG/DL (0.2-1.0); BLOOD UREA NITROGEN 6 mg/dL (7-18); CARBON DIOXIDE 24 MMOL/L (21-32); CHLORIDE 108 MMOL/L (98-107); CREATININE 0.6 MG/DL (0.55-1.30); SODIUM 139 MMOL/L (136-145)
[2019-05-31 07:44] LABS: BILIRUBIN,DIRECT 1.4 MG/DL (0.0-0.3)
[2019-05-31 07:58] VITALS: BP 143/71
--- NOTE | 2019-05-31 08:05 | NUR ---
NURSE NOTES: Patient received in stable condition, resting in bed. Breathing unlabored on room air, o2 94%. Denies SOB or pain at this time. Finished 100% of breakfast. IV site on right hand patent and intact, currently running antibiotic. Siderails padded for seizure precautions. Commode by the bedside. Call light placed within reach, will continue to monitor.
[2019-05-31 08:06] LABS: INR 1.5 (0.9-1.1)
[2019-05-31] MEDS: Lactulose 20gm/30ml UDC ORAL SCH (08:41)
[2019-05-31] MEDS: Sertraline 100mg tab ORAL SCH (08:41)
[2019-05-31] MEDS: Thiamine 100mg tab ORAL SCH (08:41)
[2019-05-31] MEDS: Docusate 100mg cap ORAL SCH ×2 (08:41→20:42)
[2019-05-31] MEDS: ARIPiprazole 2mg tab ORAL SCH (08:41)
--- NOTE | 2019-05-31 11:11 | GI Progress Note ---
Assessment/Plan Problems: (1) Alcohol use ICD Codes: Z72.89 - Other problems related to lifestyle SNOMED: 889514 (2) Thrombocytopenia ICD Codes: D69.6 - Thrombocytopenia, unspecified SNOMED: 012447464 (3) Alcoholic cirrhosis of liver without ascites ICD Codes: K70.30 - Alcoholic cirrhosis of liver without ascites SNOMED: 150272411 (4) Abdominal pain ICD Codes: R10.9 - Unspecified abdominal pain SNOMED: 19046188 Qualifiers: Qualified Codes: R10.84 - Generalized abdominal pain (5) Alcohol abuse ICD Codes: F10.10 - Alcohol abuse, uncomplicated SNOMED: 63531029 Status: progressing Status Narrative Discussed with Dr. Goldman. Assessment/Plan This is a 58-year-old female patient with history of polysubstance abuse, EtOH abuse, cirrhosis presents with abdominal pain. abdominal US reviewed >> - Hepatic surface nodularity, consistent with cirrhosis - Nodules described on recent CT and MRI are not sonographically evident -Hepatomegaly - Negative for gallstones. There is mild gallbladder wall thickening, probably related to hepatocellular disease. However, the possibly of acute acalculous cholecystitis should also be considered. MRI reviewed >> limited exam, patient unable to tolerate. Hepatitis C positive, pending genotype HIDA negative No plans for any GI procedures at this time Advance diet as tolerated cont low dose lactulose, no need for xifaxan outpatient Hep C treatment electrolyte correction PPI Zofran as needed follow labs dc planning The patient was seen and examined at bedside and all new and available data was reviewed in the patients chart. I agree with the above findings, impression and plan. (Patient seen earlier today. Signature stamp does not reflect patient encounter time.). - Martinez Goldman MD Subjective Subjective abdominal pain improved Objective Last 24 Hour Vital Signs Date Time Temp Pulse Resp B/P (MAP) Pulse Ox O2 Delivery O2 Flow Rate FiO2 05/31/19 09:00 Room Air 05/31/19 08:41 87 143/71 05/31/19 07:58 98.3 87 17 143/71 (95) 94 05/31/19 06:23 78 16 100 Room Air 21 74 16 100 05/31/19 04:00 98.1 77 18 134/76 (95) 95 05/30/19 23:54 98.4 77 18 136/68 (90) 95 05/30/19 21:00 Room Air 05/30/19 20:00 97.9 80 20 123/62 (82) 93 05/30/19 19:49 79 18 99 Room Air 21 05/30/19 19:48 77 18 99 Room Air 21 05/30/19 19:47 98 20 99 Room Air 21 77 20 99 05/30/19 16:00 97.9 79 20 121/70 (87) 94 05/30/19 15:31 78 18 96 Room Air 21 05/30/19 15:30 76 18 95 Room Air 21 05/30/19 12:00 97.8 80 20 129/71 (90) 96 Intake and Output 05/30/19 05/31/19 19:00 07:00 Intake Total 1200 ml 1000 ml Balance 1200 ml 1000 ml IV Total 200 ml Other 1000 ml 1000 ml # Voids 4 6 # Bowel Movements 2 Laboratory Tests Test 05/31/19 06:25 Prothrombin Time 15.2 SEC (9.30-11.50) H Prothromb Time International Ratio 1.5 (0.9-1.1) H Activated Partial Thromboplast Time 29 SEC (23-33) Sodium Level 139 MMOL/L (136-145) Potassium Level 5.0 MMOL/L (3.5-5.1) Chloride Level 108 MMOL/L (98-107) H Carbon Dioxide Level 24 MMOL/L (21-32) Anion Gap 7 mmol/L (5-15) Blood Urea Nitrogen 6 mg/dL (7-18) L Creatinine 0.6 MG/DL (0.55-1.30) Estimat Glomerular Filtration Rate > 60 mL/min (>60) Glucose Level 101 MG/DL (74-106) Calcium Level 9.0 MG/DL (8.5-10.1) Total Bilirubin 3.1 MG/DL (0.2-1.0) H Direct Bilirubin 1.4 MG/DL (0.0-0.3) H Aspartate Amino Transf (AST/SGOT) 181 U/L (15-37) H Alanine Aminotransferase (ALT/SGPT) 88 U/L (12-78) H Alkaline Phosphatase 203 U/L (46-116) H Total Protein 8.0 G/DL (6.4-8.2) Albumin 2.3 G/DL (3.4-5.0) L Globulin 5.7 g/dL Albumin/Globulin Ratio 0.4 (1.0-2.7) L Height (Feet): 5 Height (Inches): 4.00 Weight (Pounds): 163 General Appearance: WD/WN, no apparent distress, alert Cardiovascular: normal rate Respiratory/Chest: normal breath sounds, no respiratory distress Abdominal Exam: normal bowel sounds, non tender, soft Extremities: normal range of motion, non-tender Cheyenne Ward NP May 31, 2019 11:11
[2019-05-31 11:52] VITALS: BP 133/67
--- NOTE | 2019-05-31 13:42 | NUR ---
*-* DISCHARGE PLANNING *-* PATIENT HAS BEEN REFERRED TO: 1. [facility] P: [phone] F: [phone] 2. [facility] P: [phone] F: [phone] 3. [facility] P: [phone] F: [phone]
[2019-05-31 16:00] VITALS: BP 126/72
--- NOTE | 2019-05-31 19:09 | General Progress Note ---
Assessment/Plan Problem List: (1) Colitis ICD Codes: K52.9 - Noninfective gastroenteritis and colitis, unspecified SNOMED: 804392498 (2) Cholelithiasis ICD Codes: K80.20 - Calculus of gallbladder without cholecystitis without obstruction SNOMED: 765268389 (3) Marijuana abuse ICD Codes: F12.10 - Cannabis abuse, uncomplicated SNOMED: 45222514 (4) Marijuana abuse ICD Codes: F12.10 - Cannabis abuse, uncomplicated SNOMED: 61142575 (5) Knee pain, chronic ICD Codes: M25.569 - Pain in unspecified knee; G89.29 - Other chronic pain SNOMED: 78994732 (6) Knee pain, chronic ICD Codes: M25.569 - Pain in unspecified knee; G89.29 - Other chronic pain SNOMED: 07062076 (7) Strain of left hip ICD Codes: S76.012A - Strain of muscle, fascia and tendon of left hip, initial encounter SNOMED: 439654687 (8) Strain of left hip ICD Codes: S76.012A - Strain of muscle, fascia and tendon of left hip, initial encounter SNOMED: 313117472 (9) Nail brittleness ICD Codes: L60.3 - Nail dystrophy SNOMED: 28705548 (10) Skin lesion of hand ICD Codes: L98.9 - Disorder of the skin and subcutaneous tissue, unspecified SNOMED: 845217679 (11) Nail brittleness ICD Codes: L60.3 - Nail dystrophy SNOMED: 45877842 (12) Sciatica ICD Codes: M54.30 - Sciatica, unspecified side SNOMED: 54143182 (13) Sciatica ICD Codes: M54.30 - Sciatica, unspecified side SNOMED: 77719934 (14) Methamphetamine abuse ICD Codes: F15.10 - Otherstimulant abuse, uncomplicated SNOMED: 038510119 (15) Substance abuse ICD Codes: F19.10 - Other psychoactive substance abuse, uncomplicated SNOMED: 32208457 (16) Alcohol abuse ICD Codes: F10.10 - Alcohol abuse, uncomplicated SNOMED: 72177935 (17) Abdominal pain ICD Codes: R10.9 - Unspecified abdominal pain SNOMED: 97469413 Qualifiers: Qualified Codes: R10.84 - Generalized abdominal pain (18) Drug-seeking behavior ICD Codes: F19.10 - Other psychoactive substance abuse, uncomplicated SNOMED: 951591347 (19) Alcoholic cirrhosis of liver without ascites ICD Codes: K70.30 - Alcoholic cirrhosis of liver without ascites SNOMED: 243585734 (20) Thrombocytopenia ICD Codes: D69.6 - Thrombocytopenia, unspecified SNOMED: 594142452 (21) Tobacco abuse counseling ICD Codes: Z71.6 - Tobacco abuse counseling SNOMED: 097343760, 488033148, 138127724 (22) Tobacco abuse ICD Codes: Z72.0 - Tobacco use SNOMED: 252445539 (23) COPD (chronic obstructive pulmonary disease) ICD Codes: J44.9 - Chronic obstructive pulmonary disease, unspecified SNOMED: 50006100 (24) Chronic cough ICD Codes: R05 - Cough SNOMED: 05557827 Status: progressing Assessment/Plan: Kandy Negrete is a 58 yo woman with PMH of alcoholic cirrhosis, polysubstance abuse (EtOH, methamphetamine, marijuana), COPD, and HTN who presented with several days of poor PO intake, N/V, abdominal discomfort and generalized weakness, found with labs notable for platelet 86, no leukocytosis, hypokalemia 2.9, tranaminitis with AST>ALT, and overall unremarkable CT A/P for acute process. #Generalized weakness, suspected 2/2 multiple medical comorbidities, length of stay. - IMPROVING #dysuria- rule out UTI - UA negative. Symptoms resolved #diarrhea, while off lactulose- resolved - continue PT/OT - PT to evaluate tomorrow for home with PT. currently not cleared. No SNF accepted yet #mechanical fall suspected 2/2 orthostatic hypotension - IV NS 500 cc x 1 - encourage PO intake and fluids - Pt/OT #N/V abd pain - Resolved. HIDA negative. #hepatitis C and Etoh cirrhosis, new diagnosis > CT A/P without acute inflammatory or obstructive process, trace ascites, moderately enlarged cirrhotic liver with hypodense nodules throughout likely regenerative nodules, cholelithiasis without obstruction. > MRI limited due to lack of contrast and patient movement: continues to show scattered hypodense lesions which are nonspecific. > Abdominal ultrasound: negative for gallstones. Mild gallbladder wall thickening, probably related to hepatocellular disease, but acalculous cholecystitis possible. Consider HIDA - Patient states does not have a GI doctor outpatient - Appreciate GI consult: Dr. Goldman and ACCOUNT AUDITOR Sylvia- Lactulose, zofran. Continue to monitor - Ammonia 44 - lactulose, titrate to 3-4 BM per day - Zofran 4mg q6hrs PRN nausea/vomiting -Tylenol for pain control - counseled patient on EtOH cessation. Planning to join AA again after discharge. #Tobacco dependence - smoking 2PPD - Continue nicotine patch and continue on discharge #Suspect COPD, due to many years of smoking - will need outpatient PFTs to confirm - Start DuoNebs q6hr - Start spiriva 18mcg 2puffs daily #hepatitis C - discussed with patient diagnosis and need for treatment. Patient agreeable - send for HCV RNA and genotype #Polysubstance abuse, acute EtOH withdraw, mood disorder - Alcohol withdraw protocol - Banana bag x1, thiamine PO daily, folate PO daily, multivitamin PO daily - s/p librium taper, - Ativan 0.5gm IV q2hrs PRN withdraw symptoms - Monitor for worsening signs/symptoms of withdraw - Social work consult, patient interested in detox programs - Continue home Abilify and Zoloft #Generalized weakness, could be 2/2 cirrhosis, length of stay, multiple medical problems - PT to evaluate for SNF rehab #Metabolic encephalopathy - Resolved - In setting of acute EtOH withdraw and cirrhosis - Treatment as per above #Sinus tachycardia, hx HTN - tachycardia 2/2 EtOH withdraw - Continue home amlodipine 5mg PO daily #Thrombocytopenia 2/2 cirrhosis - Platelet 86 on admission, likely 2/2 chronic EtOH use/cirrhosis - Continue to monitor - SCDs for DVT ppx Hypophosphatemia -replete hypomagnesemia replete FEN Low sodium diet Full Code Dispo: SNF for rehab. Though pending PT therapy re-evaluation for home with home PT/home health. currently patient unable to care for herself at home and has no assistance. Case discussed with RN, physical therapy, and patient. I spent 28 minutes on this encounter, with >50% dedicated to counseling and/or coordination of care. Time of note may not reflect time patient was seen. Subjective Date patient seen: May 31, 2019 Constitutional: Denies: chills, diaphoresis, fever, malaise, weakness, other HEENT: Denies: eye pain, blurred vision, tearing, double vision, ear pain, ear discharge, nose pain, nose congestion, throat pain, throat swelling, mouth pain , mouth swelling, other Cardiovascular: Denies: chest pain, edema, irregular heart rate, lightheadedness, palpitations, syncope, other Respiratory: Denies: cough, orthopnea, shortness of breath, SOB with excertion , SOB at rest, sputum, stridor, wheezing, other Gastrointestinal/Abdominal: Denies: abdomen distended, abdominal pain, black stools, tarry stools, blood in stool, constipated, diarrhea, difficulty swallowing, nausea, poor appetite, poor fluid intake, rectal bleeding, vomiting , other Genitourinary: Denies: burning, discharge, frequency, flank pain, hematuria, incontinence, pain, urgency Neurologic/Psychiatric: Denies: anxiety, depressed, emotional problems, headache, numbness, paresthesia, pre-existing deficit, seizure, tingling, tremors, weakness, other Endocrine: Denies: excessive sweating, flushing, intolerance to cold, intolerance to heat, increased hunger, increased thirst, increased urine, unexplained weight gain, unexplained weight loss, other Hematologic/Lymphatic: Denies: anemia, easy bleeding, easy bruising, other Allergies: Coded Allergies: No Known Allergies (Unverified , 12/15/12) Subjective No acute events overnight per nursing Fatigue: Much improved. Continues to get stronger every day. Mechanical fall: while in the restroom today. No LOC. No head trauma. Emmett lightheaded. Resolved Diarrhea: Has now resolved. Formed bowel movements. Chronic Bronchitis/COPD: Has chronic cough. Intermittent SOB. Doing better on inhalers. Objective Last 24 Hour Vital Signs Date Time Temp Pulse Resp B/P (MAP) Pulse Ox O2 Delivery O2 Flow Rate FiO2 05/31/19 16:00 97.5 83 19 126/72 (90) 94 05/31/19 13:27 76 16 98 Room Air 21 72 16 96 05/31/19 11:52 98.1 78 18 133/67 (89) 91 05/31/19 09:00 Room Air 05/31/19 08:41 87 143/71 05/31/19 07:58 98.3 87 17 143/71 (95) 94 05/31/19 06:23 78 16 100 Room Air 21 74 16 100 05/31/19 04:00 98.1 77 18 134/76 (95) 95 05/30/19 23:54 98.4 77 18 136/68 (90) 95 05/30/19 21:00 Room Air 05/30/19 20:00 97.9 80 20 123/62 (82) 93 05/30/19 19:49 79 18 99 Room Air 21 05/30/19 19:48 77 18 99 Room Air 21 05/30/19 19:47 98 20 99 Room Air 21 77 20 99 Intake and Output 05/30/19 05/31/19 19:00 07:00 Intake Total 1200 ml 1000 ml Balance 1200 ml 1000 ml IV Total 200 ml Other 1000 ml 1000 ml # Voids 4 6 # Bowel Movements 2 Laboratory Tests 05/31/19 06:25: Prothrombin Time 15.2H, Prothromb Time International Ratio 1.5H, Activated Partial Thromboplast Time 29, Sodium Level 139, Potassium Level 5.0, Chloride Level 108H, Carbon Dioxide Level 24, Anion Gap 7, Blood Urea Nitrogen 6L, Creatinine 0.6, Estimat Glomerular Filtration Rate > 60, Glucose Level 101, Calcium Level 9.0, Total Bilirubin 3.1H, Direct Bilirubin 1.4H, Aspartate Amino Transf (AST/SGOT) 181H, Alanine Aminotransferase (ALT/SGPT) 88H, Alkaline Phosphatase 203H, Total Protein 8.0, Albumin 2.3L, Globulin 5.7, Albumin/ Globulin Ratio 0.4L Height (Feet): 5 Height (Inches): 4.00 Weight (Pounds): 163 General Appearance: WD/WN, no apparent distress, alert EENT: PERRL/EOMI, normal ENT inspection Neck: non-tender, normal alignment, supple Cardiovascular: normal peripheral pulses, normal rate, regular rhythm, no JVD Respiratory/Chest: chest wall non-tender, lungs clear, normal breath sounds, no respiratory distress Abdomen: normal bowel sounds, non tender, soft, no organomegaly, no mass Extremities: normal range of motion, non-tender, normal inspection Neurologic: shelter case manager II-XII grossly normal, no motor/sensory deficits, alert, oriented x 3 Skin: normal pigmentation, warm/dry Rubin Oneal D.O. May 31, 2019 19:09
--- NOTE | 2019-05-31 19:17 | NUR ---
TRUMPET TEACHER: REVIEW SI: ALCOHOLIC CIRRHOSIS . RECTAL BLEED T 97.5 HR 83 RR 19 BP 143/71 SAT 94% ROOM AIR T BILI 3.1 D BILI 1.4 AST 181 ALT 88 ALK PHOS 203 IS: ATIVAN IV Q4HR PRN LACTULOSE PO QD THIAMINE PO QD FOLIC ACID PO QD NORVASC PO QD MED/SURG STATUS STATUS DCP: PATIENT IS FROM HOME
--- NOTE | 2019-05-31 19:29 | NUR ---
HAND-OFF: Report given to Oxana MODI.
--- NOTE | 2019-05-31 19:46 | NUR ---
NURSE NOTES: Received patient in bed, awake, alert, oriented x 4, ambulatory , IV site is clean dry and intact. Call light is within reach, bed is locked, alarm is on. Will continue to monitor for comfort and safety.
[2019-05-31 20:00] VITALS: BP 131/70
[2019-06-01] VITALS: BP 140/78
[2019-06-01] MEDS: Albuterol/Ipratropium 3ml neb HHN SCH ×3 (01:00→13:20)
[2019-06-01] MEDS: LORazepam Inj 2mg/ml 1ml IV PRN ×4 (03:26→18:06)
[2019-06-01] MEDS: HYDROcodone/Acetamin 10/325 tab ORAL PRN ×2 (03:31→12:03)
[2019-06-01 04:00] VITALS: BP 135/74
[2019-06-01 06:18] LABS: HEMATOCRIT 38.4 % (37.0-47.0); HEMOGLOBIN 12.7 G/DL (12.0-16.0); MEAN CORPUSCULAR VOLUME 110 FL (80-99); PLATELET COUNT 96 K/UL (150-450); RED BLOOD COUNT 3.48 M/UL (4.20-5.40); RED CELL DISTRIBUTION WIDTH 13.5 % (11.6-14.8); WHITE BLOOD COUNT 5.8 K/UL (4.8-10.8)
--- NOTE | 2019-06-01 06:27 | General Progress Note ---
Assessment/Plan Status: progressing Assessment/Plan: (1) Alcohol use ICD Codes: Z72.89 - Other problems related to lifestyle SNOMED: 252445 (2) Thrombocytopenia ICD Codes: D69.6 - Thrombocytopenia, unspecified SNOMED: 670303189 (3) Alcoholic cirrhosis of liver without ascites ICD Codes: K70.30 - Alcoholic cirrhosis of liver without ascites SNOMED: 915125097 (4) Abdominal pain ICD Codes: R10.9 - Unspecified abdominal pain SNOMED: 64452060 Qualifiers: Qualified Codes: R10.84 - Generalized abdominal pain (5) Alcohol abuse ICD Codes: F10.10 - Alcohol abuse, uncomplicated SNOMED: 86121170 . Assessment/Plan This is a 58-year-old female patient with history of polysubstance abuse, EtOH abuse, cirrhosis presents with abdominal pain. abdominal US reviewed >> - Hepatic surface nodularity, consistent with cirrhosis - Nodules described on recent CT and MRI are not sonographically evident -Hepatomegaly - Negative for gallstones. There is mild gallbladder wall thickening, probably related to hepatocellular disease. However, the possibly of acute acalculous cholecystitis should also be considered. MRI reviewed >> limited exam, patient unable to tolerate. No plans for any GI procedures at this time electrolyte correction PPI Zofran as needed follow labs dc planning per primary team Hep C genotype and Quant pending needs out patient fu for Hep C treatment Subjective Allergies: Coded Allergies: No Known Allergies (Unverified , 12/15/12) Objective Last 24 Hour Vital Signs Date Time Temp Pulse Resp B/P (MAP) Pulse Ox O2 Delivery O2 Flow Rate FiO2 06/01/19 04:00 98.4 74 18 135/74 (94) 95 06/01/19 01:00 74 16 97 Nasal Cannula 2.0 28 06/01/19 00:00 97.6 78 21 140/78 (98) 95 05/31/19 21:46 Room Air 05/31/19 20:00 97.7 81 20 131/70 (90) 91 05/31/19 19:42 Nasal Cannula 2.0 28 05/31/19 19:33 78 16 94 Room Air 21 05/31/19 16:00 97.5 83 19 126/72 (90) 94 05/31/19 13:27 76 16 98 Room Air 21 72 16 96 05/31/19 11:52 98.1 78 18 133/67 (89) 91 05/31/19 09:00 Room Air 05/31/19 08:41 87 143/71 05/31/19 07:58 98.3 87 17 143/71 (95) 94 Intake and Output 05/31/19 06/01/19 19:00 07:00 # Voids 5 Laboratory Tests 06/01/19 05:45: White Blood Count [Pending], Red Blood Count [Pending], Hemoglobin [Pending], Hematocrit [Pending], Mean Corpuscular Volume [Pending], Mean Corpuscular Hemoglobin [Pending], Mean Corpuscular Hemoglobin Concent [Pending], Red Cell Distribution Width [Pending], Platelet Count [Pending], Mean Platelet Volume [ Pending], Neutrophils (%) (Auto) [Pending], Lymphocytes (%) (Auto) [Pending], Monocytes (%) (Auto) [Pending], Eosinophils (%) (Auto) [Pending], Basophils (%) (Auto) [Pending], Sodium Level [Pending], Potassium Level [Pending], Chloride Level [Pending], Carbon Dioxide Level [Pending], Blood Urea Nitrogen [Pending], Creatinine [Pending], Estimat Glomerular Filtration Rate [Pending], Glucose Level [Pending], Calcium Level [Pending], Total Bilirubin [Pending], Aspartate Amino Transf (AST/SGOT) [Pending], Alanine Aminotransferase (ALT/SGPT) [Pending] , Alkaline Phosphatase [Pending], Total Protein [Pending], Albumin [Pending], Globulin [Pending] Height (Feet): 5 Height (Inches): 4.00 Weight (Pounds): 163 General Appearance: alert EENT: normal ENT inspection Neck: supple Cardiovascular: normal rate Respiratory/Chest: decreased breath sounds Abdomen: normal bowel sounds, non tender, soft Extremities: non-tender Martinez Goldman MD Jun 01, 2019 06:27
[2019-06-01 06:42] LABS: ALANINE AMINOTRANSFERASE 89 U/L (12-78); ALBUMIN 2.3 G/DL (3.4-5.0); ALBUMIN/GLOBULIN RATIO 0.4 (1.0-2.7); ALKALINE PHOSPHATASE 185 U/L (46-116); ANION GAP 11 mmol/L (5-15); ASPARTATE AMINO TRANSFERASE 171 U/L (15-37); BILIRUBIN,DIRECT 1.6 MG/DL (0.0-0.3); BILIRUBIN,TOTAL 2.5 MG/DL (0.2-1.0); BLOOD UREA NITROGEN 7 mg/dL (7-18); CALCIUM 8.7 MG/DL (8.5-10.1); CARBON DIOXIDE 21 MMOL/L (21-32); CHLORIDE 108 MMOL/L (98-107); CREATININE 0.7 MG/DL (0.55-1.30); POTASSIUM 4.1 MMOL/L (3.5-5.1); SODIUM 140 MMOL/L (136-145)
--- NOTE | 2019-06-01 07:36 | NUR ---
NURSE NOTES: Patient received in stable condition, ambulating in room. Alert and oriented. Denies SOB or pain at this time. IV site patent and intact, saline locked. Very mild tremors observed in bilateral hands. Call light placed within reach, will continue to monitor.
[2019-06-01 08:00] VITALS: BP 121/67
[2019-06-01] MEDS: Lactulose 20gm/30ml UDC ORAL SCH (08:07)
[2019-06-01] MEDS: Thiamine 100mg tab ORAL SCH (08:07)
[2019-06-01] MEDS: ARIPiprazole 2mg tab ORAL SCH (08:07)
[2019-06-01] MEDS: Docusate 100mg cap ORAL SCH (08:07)
[2019-06-01] MEDS: Sertraline 100mg tab ORAL SCH (08:07)
--- NOTE | 2019-06-01 10:58 | NUR ---
*-* INSURANCE*-* UPDATED CLINICALS and REVIEWS HAVE BEEN FAXED TO: [employer]#[id number] CM:Leni #[phone] ext [phone] fax#[phone]
[2019-06-01 12:00] VITALS: BP 120/71
--- NOTE | 2019-06-01 12:08 | NUR ---
RD ASSESSMENT & RECOMMENDATIONS SEE CARE ACTIVITY FOR COMPLETE ASSESSMENT DAILY ESTIMATED NEEDS: Needs based on Liver, 64kg adj 25-30 kcals/kg 3457-1574 total kcals 1-1.5 g protein/kg 64-96 g total protein Fluid per MD mL/kg total fluid mLs NUTRITION DIAGNOSIS: Decreased sodium and fat needs r/t liver cirrhosis as evidenced by Abdominal CT, MRI, elev T bili, elev LFT's, w/ elev ammonia (67), w/ h/o ETOH and substance abuse (+tox on adm, benzos). CURRENT DIET:Low Na diet PO DIET RECOMMENDATIONS: Low Na/ Low Fat diet ADDITIONAL RECOMMENDATIONS: 1) Obtaina standing weight for eval EMR wt: 163# vs Bed scale wt: 205# 2) Continue Vit B1/ folate/ MVI supplementation 3) Monitor lytes and hydration status closely on lactulose ..
--- NOTE | 2019-06-01 14:07 | General Progress Note ---
Assessment/Plan Problem List: (1) Colitis ICD Codes: K52.9 - Noninfective gastroenteritis and colitis, unspecified SNOMED: 001730932 (2) Cholelithiasis ICD Codes: K80.20 - Calculus of gallbladder without cholecystitis without obstruction SNOMED: 274729225 (3) Marijuana abuse ICD Codes: F12.10 - Cannabis abuse, uncomplicated SNOMED: 67146064 (4) Marijuana abuse ICD Codes: F12.10 - Cannabis abuse, uncomplicated SNOMED: 70049209 (5) Knee pain, chronic ICD Codes: M25.569 - Pain in unspecified knee; G89.29 - Other chronic pain SNOMED: 65286725 (6) Knee pain, chronic ICD Codes: M25.569 - Pain in unspecified knee; G89.29 - Other chronic pain SNOMED: 35235200 (7) Strain of left hip ICD Codes: S76.012A - Strain of muscle, fascia and tendon of left hip, initial encounter SNOMED: 871737530 (8) Strain of left hip ICD Codes: S76.012A - Strain of muscle, fascia and tendon of left hip, initial encounter SNOMED: 539616177 (9) Nail brittleness ICD Codes: L60.3 - Nail dystrophy SNOMED: 23289660 (10) Skin lesion of hand ICD Codes: L98.9 - Disorder of the skin and subcutaneous tissue, unspecified SNOMED: 740461572 (11) Nail brittleness ICD Codes: L60.3 - Nail dystrophy SNOMED: 18091940 (12) Sciatica ICD Codes: M54.30 - Sciatica, unspecified side SNOMED: 18936948 (13) Sciatica ICD Codes: M54.30 - Sciatica, unspecified side SNOMED: 79215585 (14) Methamphetamine abuse ICD Codes: F15.10 - Otherstimulant abuse, uncomplicated SNOMED: 374758234 (15) Substance abuse ICD Codes: F19.10 - Other psychoactive substance abuse, uncomplicated SNOMED: 89238905 (16) Alcohol abuse ICD Codes: F10.10 - Alcohol abuse, uncomplicated SNOMED: 75192534 (17) Abdominal pain ICD Codes: R10.9 - Unspecified abdominal pain SNOMED: 99280302 Qualifiers: Qualified Codes: R10.84 - Generalized abdominal pain (18) Drug-seeking behavior ICD Codes: F19.10 - Other psychoactive substance abuse, uncomplicated SNOMED: 824738938 (19) Alcoholic cirrhosis of liver without ascites ICD Codes: K70.30 - Alcoholic cirrhosis of liver without ascites SNOMED: 490452808 (20) Thrombocytopenia ICD Codes: D69.6 - Thrombocytopenia, unspecified SNOMED: 244518368 (21) Tobacco abuse counseling ICD Codes: Z71.6 - Tobacco abuse counseling SNOMED: 047373764, 364408580, 538078394 (22) Tobacco abuse ICD Codes: Z72.0 - Tobacco use SNOMED: 483313620 (23) COPD (chronic obstructive pulmonary disease) ICD Codes: J44.9 - Chronic obstructive pulmonary disease, unspecified SNOMED: 46671827 (24) Chronic cough ICD Codes: R05 - Cough SNOMED: 86235987 Status: progressing Assessment/Plan: Kandy Negrete is a 58 yo woman with PMH of alcoholic cirrhosis, polysubstance abuse (EtOH, methamphetamine, marijuana), COPD, and HTN who presented with several days of poor PO intake, N/V, abdominal discomfort and generalized weakness, found with labs notable for platelet 86, no leukocytosis, hypokalemia 2.9, tranaminitis with AST>ALT, and overall unremarkable CT A/P for acute process. #Generalized weakness, suspected 2/2 multiple medical comorbidities, length of stay. - IMPROVING #dysuria- rule out UTI - UA negative. Symptoms resolved #diarrhea, while off lactulose- resolved - continue PT/OT - Continue physical therapy - Pending SNF placement for PT/OT #mechanical fall suspected 2/2 orthostatic hypotension- resolved - IV NS 500 cc x 1 - encourage PO intake and fluids - Pt/OT #N/V abd pain - Resolved. HIDA negative. #hepatitis C and Etoh cirrhosis, new diagnosis > CT A/P without acute inflammatory or obstructive process, trace ascites, moderately enlarged cirrhotic liver with hypodense nodules throughout likely regenerative nodules, cholelithiasis without obstruction. > MRI limited due to lack of contrast and patient movement: continues to show scattered hypodense lesions which are nonspecific. > Abdominal ultrasound: negative for gallstones. Mild gallbladder wall thickening, probably related to hepatocellular disease, but acalculous cholecystitis possible. Consider HIDA - Patient states does not have a GI doctor outpatient - Appreciate GI consult: Dr. Goldman and FURNITURE ARRANGER Sylvia- Lactulose, zofran. Continue to monitor - Ammonia 44 - lactulose, titrate to 3-4 BM per day - Zofran 4mg q6hrs PRN nausea/vomiting -Tylenol for pain control - counseled patient on EtOH cessation. Planning to join again after discharge. #Tobacco dependence - smoking 2PPD - Continue nicotine patch and continue on discharge #Suspect COPD, due to many years of smoking - will need outpatient PFTs to confirm - Start DuoNebs q6hr - Start spiriva 18mcg 2puffs daily #hepatitis C - discussed with patient diagnosis and need for treatment. Patient agreeable - send for HCV RNA and genotype #Polysubstance abuse, acute EtOH withdraw, mood disorder - Alcohol withdraw protocol - Banana bag x1, thiamine PO daily, folate PO daily, multivitamin PO daily - s/p librium taper, - Ativan 0.5gm IV q2hrs PRN withdraw symptoms - Monitor for worsening signs/symptoms of withdraw - Social work consult, patient interested in detox programs - Continue home Abilify and Zoloft #Generalized weakness, could be 2/2 cirrhosis, length of stay, multiple medical problems - PT to evaluate for SNF rehab #Metabolic encephalopathy - Resolved - In setting of acute EtOH withdraw and cirrhosis - Treatment as per above #Sinus tachycardia, hx HTN - tachycardia 2/2 EtOH withdraw - Continue home amlodipine 5mg PO daily #Thrombocytopenia 2/2 cirrhosis - Platelet 86 on admission, likely 2/2 chronic EtOH use/cirrhosis - Continue to monitor - SCDs for DVT ppx Hypophosphatemia -replete hypomagnesemia replete FEN Low sodium diet Full Code Dispo: SNF for rehab. Case discussed with RN, physical therapy, and patient. I spent 27 minutes on this encounter, with >50% dedicated to counseling and/or coordination of care. Time of note may not reflect time patient was seen. Subjective Date patient seen: Jun 01, 2019 Constitutional: Denies: chills, diaphoresis, fever, malaise, weakness, other HEENT: Denies: eye pain, blurred vision, tearing, double vision, ear pain, ear discharge, nose pain, nose congestion, throat pain, throat swelling, mouth pain , mouth swelling, other Cardiovascular: Denies: chest pain, edema, irregular heart rate, lightheadedness, palpitations, syncope, other Respiratory: Denies: cough, orthopnea, shortness of breath, SOB with excertion , SOB at rest, sputum, stridor, wheezing, other Gastrointestinal/Abdominal: Denies: abdomen distended, abdominal pain, black stools, tarry stools, blood in stool, constipated, diarrhea, difficulty swallowing, nausea, poor appetite, poor fluid intake, rectal bleeding, vomiting , other Genitourinary: Denies: burning, discharge, frequency, flank pain, hematuria, incontinence, pain, urgency, other Neurologic/Psychiatric: Denies: anxiety, depressed, emotional problems, headache, numbness, paresthesia, pre-existing deficit, seizure, tingling, tremors, weakness, other Endocrine: Denies: excessive sweating, flushing, intolerance to cold, intolerance to heat, increased hunger, increased thirst, increased urine, unexplained weight gain, unexplained weight loss, other Hematologic/Lymphatic: Denies: anemia, easy bleeding, easy bruising, other Allergies: Coded Allergies: No Known Allergies (Unverified , 12/15/12) Subjective No acute events overnight per nursing Fatigue: Much improved. Continues to get stronger every day. IV fluids helped Mechanical fall: No further falls Chronic Bronchitis/COPD: Has chronic cough. Intermittent SOB. Doing better on inhalers. Objective Last 24 Hour Vital Signs Date Time Temp Pulse Resp B/P (MAP) Pulse Ox O2 Delivery O2 Flow Rate FiO2 06/01/19 13:20 78 18 98 Room Air 21 75 18 94 06/01/19 12:00 97.3 77 23 120/71 (87) 97 06/01/19 09:00 Room Air 06/01/19 08:08 78 135/74 06/01/19 08:06 78 18 99 Room Air 21 06/01/19 08:06 77 18 99 Room Air 21 06/01/19 08:00 97.2 81 12 121/67 (85) 95 06/01/19 07:50 76 18 98 Room Air 21 78 18 94 06/01/19 04:00 98.4 74 18 135/74 (94) 95 06/01/19 01:00 74 16 97 Nasal Cannula 2.0 28 06/01/19 00:00 97.6 78 21 140/78 (98) 95 05/31/19 21:46 Room Air 05/31/19 20:00 97.7 81 20 131/70 (90) 91 05/31/19 19:42 Nasal Cannula 2.0 28 05/31/19 19:33 78 16 94 Room Air 21 05/31/19 16:00 97.5 83 19 126/72 (90) 94 Intake and Output 05/31/19 06/01/19 19:00 07:00 # Voids 5 Laboratory Tests 06/01/19 05:45: White Blood Count 5.8, Red Blood Count 3.48L, Hemoglobin 12.7, Hematocrit 38.4, Mean Corpuscular Volume 110H, Mean Corpuscular Hemoglobin 36.5H, Mean Corpuscular Hemoglobin Concent 33.1, Red Cell Distribution Width 13.5, Platelet Count 96L, Mean Platelet Volume 9.2, Neutrophils (%) (Auto) , Lymphocytes (%) ( Auto) , Monocytes (%) (Auto) , Eosinophils (%) (Auto) , Basophils (%) (Auto) , Differential Total Cells Counted 100, Neutrophils % (Manual) 63, Lymphocytes % ( Manual) 22, Monocytes % (Manual) 10, Eosinophils % (Manual) 4H, Basophils % ( Manual) 1, Band Neutrophils 0, Platelet Estimate DecreasedL, Platelet Morphology Normal, Sodium Level 140, Potassium Level 4.1, Chloride Level 108H, Carbon Dioxide Level 21, Anion Gap 11, Blood Urea Nitrogen 7, Creatinine 0.7, Estimat Glomerular Filtration Rate > 60, Glucose Level 109H, Calcium Level 8.7, Total Bilirubin 2.5H, Direct Bilirubin 1.6H, Aspartate Amino Transf (AST/SGOT) 171H, Alanine Aminotransferase (ALT/SGPT) 89H, Alkaline Phosphatase 185H, Total Protein 7.8, Albumin 2.3L, Globulin 5.5, Albumin/Globulin Ratio 0.4L Height (Feet): 5 Height (Inches): 4.00 Weight (Pounds): 163 General Appearance: WD/WN, no apparent distress, alert EENT: PERRL/EOMI, normal ENT inspection Neck: non-tender, normal alignment, supple Cardiovascular: normal peripheral pulses, normal rate, regular rhythm, no JVD Respiratory/Chest: chest wall non-tender, lungs clear, normal breath sounds Abdomen: normal bowel sounds, non tender, soft, no organomegaly, no mass Extremities: normal range of motion, non-tender, normal inspection, no calf tenderness Neurologic: health information technician II-XII grossly normal, no motor/sensory deficits, alert, oriented x 3, responsive Skin: normal pigmentation, warm/dry Rubin Oneal D.O. Jun 01, 2019 14:07
--- NOTE | 2019-06-01 15:21 | NUR ---
DESKTOP PUBLISHING OPERATOR NOTES PT ACCEPTED AT [facility] ROOM [address] BED A. AUTHORIZATION NUMBER [id number]. [facility] TO TRANSPORT PT WITH AN AUTHORIZATION [id number]. MADE AWARE. PT WILL BE SKILLED LEVEL OF SERVICES.
[2019-06-01 16:00] VITALS: BP_SYST 130; BP_SYST 150; BP_DIAS 73
--- NOTE | 2019-06-01 16:37 | NUR ---
DISCHARGE PLANNING DISCHARGE ORDER NOTED Patient has been accepted to; [facility] [address] [place] [address] Bed: 109-A Skilled [phone] Nurse to Nurse report [facility] ETA for transportation: 18:30
[2019-06-01] MEDS ORDERED: VITAMIN B-1100 M2 ORAL (17:18)
[2019-06-01] MEDS ORDERED: LACTULOSE20 GM/301 ORAL (17:18)
[2019-06-01] MEDS ORDERED: NORVASC5 MG ORAL (17:18)
[2019-06-01] MEDS ORDERED: ABILIFY2 MG ORAL (17:18)
[2019-06-01] MEDS ORDERED: GUAIFENESIN DM118 M1 ORAL (17:18)
[2019-06-01] MEDS ORDERED: SPIRIVA INHALE1 PUF1 INH (17:18)
[2019-06-01] MEDS ORDERED: NICODERM CQ1 EAC3 TDERMAL (17:18)
[2019-06-01] MEDS ORDERED: FOLIC ACID1 MG ORAL (17:18)
--- NOTE | 2019-06-01 17:24 | Discharge Instructions ---
Discharge Instructions Discharge Instructions Follow up with: PCP and hepatology Diet: 2 GM sodium (low sodium) Resume Normal Activity?: Yes Activity: resume normal activities Special Instructions Follow up with PCP within one week of discharge. Follow up with liver doctor to treat your cirrhosis and hepatitis C abstain from drinking ANY alcohol You must take lactulose and take it once or twice daily so that you have 3-4 BM per day. Hold if you have diarrhea Rubin Oneal D.O. Jun 01, 2019 17:24
[2019-06-01] MEDS ORDERED: DUONEB 0.5-3(2.53 ML HHN (17:25)
--- NOTE | 2019-06-01 17:39 | Discharge Summary ---
Discharge Summary Hospital Course Date of Admission May 23, 2019 at 04:00 Date of Discharge Admitting Diagnosis generalized weakness, cirrhosis HPI Kandy Negrete is a 58 year old female who was admitted on May 23, 2019 at 04:00 for Generalized Weakness, Cirrhosis Consultations Gastroenterology Hospital Course Kandy Negrete is a 58 yo woman with PMH of alcoholic cirrhosis, polysubstance abuse (EtOH, methamphetamine, marijuana), COPD, and HTN who presented with several days of poor PO intake, N/V, abdominal discomfort and generalized weakness, found with labs notable for platelet 86, no leukocytosis, hypokalemia 2.9, tranaminitis with AST>ALT, and overall unremarkable CT A/P for acute process. The CT was also notable for a new diagnosis of cirrhosis. There were some nonspecific nodules noted in the liver as well. MRI abdomen was obtained which again showed the nodules but were nonspecific. No definite mass. This was a new diagnosis. The patient was also diagnosed with hepatitis C and requires outpatient treatment. Given that the patient continued to have postprandial pain and abdominal ultrasound right upper quadrant was obtained. There were no definite gallstones or biliary duct dilation. There was gallbladder wall thickening which could represent acute acalculous cholecystitis. An alk phos and GGT was HIDA scan was performed which was negative for acute cholecystitis. the patient's abdominal pain resolved. She was started on lactulose. She experienced some increased diarrhea with this new medication. It was titrated down to 10 mg p.o. daily and patient was having approximately 3 bowel movements per day. The patient's alcohol withdrawal was treated with a Librium taper and Ativan. She did not have any alcoholic seizures or delirium tremens. She was counseled to abstain from alcohol use. She has a plan to attend alcoholic Anonymous. The patient was evaluated by physical therapy and found to be severely deconditioned. She was accepted to a halfway facility for continued rehab. The patient endorsed a 91-coac-tbkd smoking history. She endorsed a chronic cough and some dyspnea on exertion. The patient had not been diagnosed with COPD but there was a suspicion for this. She was started on duo nebs and Spiriva once daily with improvement. She was also given a nicotine patch and counseled on tobacco cessation. The patient was hemodynamically stable on discharge. She was discharged to a halfway facility. #Generalized weakness, suspected 2/2 multiple medical comorbidities, length of stay. - IMPROVING #dysuria- rule out UTI - UA negative. Symptoms resolved #diarrhea, while off lactulose- resolved - continue PT/OT - Continue physical therapy - Pending SNF placement for PT/OT #mechanical fall suspected 2/2 orthostatic hypotension- resolved - IV NS 500 cc x 1 - encourage PO intake and fluids - Pt/OT #N/V abd pain - Resolved. HIDA negative. #hepatitis C and Etoh cirrhosis, new diagnosis > CT A/P without acute inflammatory or obstructive process, trace ascites, moderately enlarged cirrhotic liver with hypodense nodules throughout likely regenerative nodules, cholelithiasis without obstruction. > MRI limited due to lack of contrast and patient movement: continues to show scattered hypodense lesions which are nonspecific. > Abdominal ultrasound: negative for gallstones. Mild gallbladder wall thickening, probably related to hepatocellular disease, but acalculous cholecystitis possible. Consider HIDA - Patient states does not have a GI doctor outpatient - Appreciate GI consult: Dr. Goldman and DIRECTORY CLERK Sylvia- Lactulose, zofran. Continue to monitor - Ammonia 44 - lactulose, titrate to 3-4 BM per day - Zofran 4mg q6hrs PRN nausea/vomiting -Tylenol for pain control - counseled patient on EtOH cessation. Planning to join AA again after discharge. #Tobacco dependence - smoking 2PPD - Continue nicotine patch and continue on discharge #Suspect COPD, due to many years of smoking - will need outpatient PFTs to confirm - Start DuoNebs q6hr - Start spiriva 18mcg 2puffs daily #hepatitis C - discussed with patient diagnosis and need for treatment. Patient agreeable - follow up on HCV RNA and genotype #Polysubstance abuse, acute EtOH withdraw, mood disorder - Alcohol withdraw protocol - Banana bag x1, thiamine PO daily, folate PO daily, multivitamin PO daily - s/p librium taper, - Ativan 0.5gm IV q2hrs PRN withdraw symptoms - Monitor for worsening signs/symptoms of withdraw - Social work consult, patient interested in detox programs - Continue home Abilify and Zoloft #Generalized weakness, could be 2/2 cirrhosis, length of stay, multiple medical problems - PT to evaluate for SNF rehab #Metabolic encephalopathy - Resolved - In setting of acute EtOH withdraw and cirrhosis - Treatment as per above #Sinus tachycardia, hx HTN - tachycardia 2/2 EtOH withdraw - Continue home amlodipine 5mg PO daily #Thrombocytopenia 2/2 cirrhosis - Platelet 86 on admission, likely 2/2 chronic EtOH use/cirrhosis - Continue to monitor - SCDs for DVT ppx Hypophosphatemia -replete hypomagnesemia replete FEN Low sodium diet Full Code Dispo: SNF for rehab. Physical examVital signsTemp: 98.2Pulse: 90Respirations: 20BP 130/73SpO2: 95% on RA General Appearance: WD/WN, no apparent distress, alertEENT: PERRL/EOMI, normal ENT inspectionNeck: non-tender, normal alignment, suppleCardiovascular: normal peripheral pulses, normal rate, regular rhythm, no JVDRespiratory/Chest : chest wall non-tender, lungs clear, normal breath soundsAbdomen: normal bowel sounds, non tender, soft, no organomegaly, no massExtremities: normal range of motion, non-tender, normal inspection, no calf tendernessNeurologic: machine clothing replacer II-XII grossly normal, no motor/sensory deficits, alert, oriented x 3, responsiveSkin: normal pigmentation, warm/dry Case discussed with RN, physical therapy, case management, and patient. I spent >30 minutes on this encounter, with >50% dedicated to counseling and/or coordination of care. Time of note may not reflect time patient was seen. Discharge Condition Upon Discharge: stable Discharge Disposition Patient was discharged to SNF Discharge Diagnoses: (1) Alcoholic cirrhosis of liver without ascites (2) Hepatitis C (3) Chronic cough (4) Tobacco abuse counseling (5) Tobacco abuse (6) COPD (chronic obstructive pulmonary disease) (7) Drug-seeking behavior (8) Alcohol abuse (9) Methamphetamine abuse Discharge Instructions Discharge Instructions Follow up with: PCP and hepatology Activity: resume normal activities Rubin Oneal D.O. Jun 01, 2019 17:39
[2019-06-01] MEDS ORDERED: ATIVAN0.5 MG ORAL (17:45)
--- NOTE | 2019-06-01 18:11 | NUR ---
NURSE NOTES: Patient discharged to [facility] accompanied by ambulance personnel. Report given to Iona MODI. Patient was in stable condition, breathing unlabored. Denied SOB or pain at time of discharge. Belongings reviewed and confirmed with the patient at bedside. No belongings missing. IV safely removed, covered with gauze and tape.
--- NOTE | 2019-06-04 13:37 | NUR ---
*-* INSURANCE *-* ALL CLINICALS AND REVIEWS HAVE BEEN RE-FAXED TO: [facility] F: [phone]
== END 2019-06-01 18:15 | DRG 775 ==
LOC: EDBD 22:11 → EMR 22:25 → 4E 05-23 04:00 → EDBEDREQ 05-23 04:50 → 4E 05-29 00:17
DX: F10.239 Alcohol dependence with withdrawal, unspecified (principal); K70.30 Alcoholic cirrhosis of liver without ascites; B19.20 Unspecified viral hepatitis C without hepatic coma; G93.41 Metabolic encephalopathy; D69.59 Other secondary thrombocytopenia; F15.10 Other stimulant abuse, uncomplicated; F12.10 Cannabis abuse, uncomplicated; D69.6 Thrombocytopenia, unspecified; F17.200 Nicotine dependence, unspecified, uncomplicated; I95.1 Orthostatic hypotension; J44.9 Chronic obstructive pulmonary disease, unspecified; R00.0 Tachycardia, unspecified; E83.39 Other disorders of phosphorus metabolism; E83.42 Hypomagnesemia; Z76.5 Malingerer [conscious simulation]; K52.9 Noninfective gastroenteritis and colitis, unspecified; M54.30 Sciatica, unspecified side; G89.29 Other chronic pain; M25.569 Pain in unspecified knee; K80.20 Calculus of gallbladder without cholecystitis without obstruction
CPT/HCPCS: 36415; 71045; 74176; 74181; 76700; 78266; 80048; 80053; 80076; 80307; 81001; 81003; 82105; 82140; 82248; 82977; 83690; 83735; 84100; 85007; 85025; 85610; 85730; 86705; 86709; 86803; 87086; 87340; 87522; 87902; 94640; 94664; 96361; 96374; 96375; 99285; J2405; J7620; J8499